=== PATIENT | female | born 1960 | race Caucasian/White ===

== ENCOUNTER 2018-09-24 02:05 | Emergency (ER) | payer OTHER, MEDICAID ==
[~2018-09-24] VITALS: Ht 180.3 cm; Wt 88.0 kg
[2018-09-24 02:48] VITALS: BP 130/74
[2018-09-24 02:59] LABS: Urine Bacteria FEW /hpf (None Seen); Urine Blood Negative /uL (Negative); Urine Specific Gravity 1.006 (1.001-1.035); Urine WBC 18 /hpf (0 - 5)
[2018-09-24 03:09] LABS: Alcohol, Urine < 3.0 mg/dL (0-5); Amphetamine Screen, Urine NEGATIVE (NEGATIVE); Barbiturate Scree,Urine NEGATIVE (NEGATIVE); Benzodiazephine Screen, Urine NEGATIVE (NEGATIVE); Cannabinoid Screen, Urine NEGATIVE (NEGATIVE); Cocaine Screen, Urine NEGATIVE (NEGATIVE); Opiate Scree,Urine NEGATIVE (NEGATIVE); Phencyclidine Screen, Urine NEGATIVE (NEGATIVE)
[2018-09-24] MEDS ORDERED: methylPREDNISolone SOD SUCC 125 MG/2 ML VL IM ONE (03:15)
[2018-09-24] MEDS ORDERED: HYDROcodone-ACET 10/325MG TAB PO ONE (03:15)
[2018-09-24 03:49] LABS: INR < 0.93 (0.9-1.15); Partial Thromboplastin Time 24.2 sec (23.64-32.05)
[2018-09-24 03:50] LABS: Acetaminophen < 2.0 ug/mL (10-30); Salicylate < 1.7 mg/dL (2.8-20.0)
[2018-09-24 03:52] LABS: Albumin 3.8 g/dL (3.4-5.0); BUN/Creatinine Ratio 19.7; Bilirubin, Total 0.2 mg/dL (0.2-1.0); Calcium 8.9 mg/dL (8.5-10.1); Potassium 3.6 mmol/L (3.5-5.1); Total Protein 7.1 g/dL (6.4-8.2)
[2018-09-24 04:20] LABS: Basophils # (auto) 0.1 uL; Eosinophils # (auto) 0.3 uL; Hematocrit 36.7 % (36.0-46.0); Hemoglobin 12.2 g/dL (12.2-16.2); Lymphocytes % (auto) 21.9 % (10.0-50.0); Mean Corpuscular Hemoglobin 27.8 pg (28.0-32.0); Mean Corpuscular Hgb Conc. 33.4 g/dL (32.0-36.0); Mean Corpuscular Volume 83.5 fL (80.0-100.0); Monocytes # (auto) 0.6 uL; Monocytes % (auto) 6.6 % (0.0-12.0); Neutrophils % (auto) 67.5 % (37.0-80.0); Platelet Count (auto) 200 10^3/uL (140-450); Red Blood Cells 4.39 10^6/uL (4.0-5.20); Red Cell Distribution Width 14.1 % (11.8-14.3); White Blood Cell 8.9 10^3/uL (4.4-10.8)
== END 2018-09-24 05:00 | disposition home or self-care (01) ==
LOC: EDBD 02:05 → ER 02:09
DX: J44.9 Chronic obstructive pulmonary disease, unspecified (principal); S96.911A Strain of unspecified muscle and tendon at ankle and foot level, right foot, initial encounter; X83.8XXA Intentional self-harm by other specified means, initial encounter; Y93.89 Activity, other specified; Y92.89 Other specified places as the place of occurrence of the external cause; Y99.8 Other external cause status
CPT/HCPCS: 36415; 71045; 73630; 80053; 80307; 80329; 81001; 85025; 85610; 85730; 93005; 96372; 99284; J2930

== ENCOUNTER 2018-10-11 00:05 | Emergency (ER) | payer OTHER, MEDICAID ==
[~2018-10-11] VITALS: Ht 149.9 cm; Wt 88.5 kg
[2018-10-11 00:39] LABS: Basophils # (auto) 0 uL; Basophils % (auto) 0.4 % (0.0-2.0); Eosinophils # (auto) 0 uL; Hematocrit 37.2 % (36.0-46.0); Hemoglobin 12.3 g/dL (12.2-16.2); Lymphocytes # (auto) 0.4 uL; Lymphocytes % (auto) 4.9 % (10.0-50.0); Mean Corpuscular Hemoglobin 27.8 pg (28.0-32.0); Mean Corpuscular Hgb Conc. 33.1 g/dL (32.0-36.0); Mean Corpuscular Volume 84.2 fL (80.0-100.0); Monocytes # (auto) 0.1 uL; Monocytes % (auto) 1.8 % (0.0-12.0); Neutrophils # (auto) 7.6 uL; Neutrophils % (auto) 92.9 % (37.0-80.0); Platelet Count (auto) 209 10^3/uL (140-450); Red Blood Cells 4.42 10^6/uL (4.0-5.20); Red Cell Distribution Width 14.4 % (11.8-14.3); White Blood Cell 8.2 10^3/uL (4.4-10.8)
[2018-10-11] MEDS: ALBUTEROL SULF 2.5 MG/0.5ML(0.5%) NEB SOLN NEB ONE (00:57)
[2018-10-11] MEDS: IPRATROPIUM BROM 0.5 MG/2.5ML INH SOL NEB ONE (00:57)
[2018-10-11 01:00] LABS: Albumin 3.6 g/dL (3.4-5.0); Anion Gap 13 (5-15); Blood Urea Nitrogen 35 mg/dL (7-18); Calcium 8.7 mg/dL (8.5-10.1); Carbon Dioxide 25 mmol/L (21-32); Chloride 104 mmol/L (98-107); GFR African American 50 mL/min; GFR Non-African American 41 mL/min; Glucose 162 mg/dL (74-106); Magnesium 2.1 mg/dL (1.6-2.6); Potassium 3.8 mmol/L (3.5-5.1); Sodium 142 mmol/L (136-145)
[2018-10-11 01:05] LABS: Alanine Aminotransferase 32 U/L (13-56); Alkaline Phosphatase 88 U/L (45-117); Aspartate Aminotransferase 17 U/L (15-37); Bilirubin, Total 0.4 mg/dL (0.2-1.0); Total Protein 7.4 g/dL (6.4-8.2)
[2018-10-11] MEDS: ACETAMINOPHEN 500 MG TAB PO ONE (02:39)
[2018-10-11 08:00] VITALS: BP 118/65
== END 2018-10-11 09:00 | disposition home or self-care (01) ==
LOC: ER 00:05
DX: J45.909 Unspecified asthma, uncomplicated (principal); Z90.710 Acquired absence of both cervix and uterus
CPT/HCPCS: 36415; 71045; 80053; 83735; 83880; 84484; 85025; 94640; 94761; 99284; J7611; J7644

== ENCOUNTER 2018-11-28 02:08 | Emergency (ER) | payer OTHER, MEDICAID ==
[~2018-11-28] VITALS: Ht 149.9 cm; Wt 86.2 kg
[2018-11-28 02:25] VITALS: BP 124/75
== END 2018-11-28 02:48 | disposition left against medical advice (07) ==
LOC: ER 02:13
DX: R19.7 Diarrhea, unspecified (principal); Z53.21 Procedure and treatment not carried out due to patient leaving prior to being seen by health care provider

== ENCOUNTER 2019-03-09 12:28 | Emergency (ER) | payer OTHER, MEDICAID ==
[~2019-03-09] VITALS: Ht 149.9 cm; Wt 85.7 kg
[2019-03-09] MEDS ORDERED: ACETAMINOPHEN 325 MG TAB PO ONE (13:00)
[2019-03-09 16:16] LABS: Basophils # (auto) 0 uL; Basophils % (auto) 0.5 % (0.0-2.0); Eosinophils # (auto) 0 uL; Hematocrit 38.8 % (36.0-46.0); Lymphocytes # (auto) 0.5 uL; Lymphocytes % (auto) 9.2 % (10.0-50.0); Mean Corpuscular Hemoglobin 27.9 pg (28.0-32.0); Mean Corpuscular Hgb Conc. 33.5 g/dL (32.0-36.0); Mean Corpuscular Volume 83.4 fL (80.0-100.0); Monocytes # (auto) 0.1 uL; Monocytes % (auto) 1.6 % (0.0-12.0); Neutrophils # (auto) 5.2 uL; Neutrophils % (auto) 88.7 % (37.0-80.0); Platelet Count (auto) 200 10^3/uL (140-450); Red Blood Cells 4.65 10^6/uL (4.0-5.20); Red Cell Distribution Width 13.6 % (11.8-14.3); White Blood Cell 5.9 10^3/uL (4.4-10.8)
[2019-03-09 16:37] LABS: Albumin 3.9 g/dL (3.4-5.0); Anion Gap 9 (5-15); Blood Alcohol < 3.0 mg/dL (0-5); Blood Urea Nitrogen 32 mg/dL (7-18); Calcium 9.3 mg/dL (8.5-10.1); Carbon Dioxide 25 mmol/L (21-32); Chloride 104 mmol/L (98-107); Glucose 162 mg/dL (74-106); Magnesium 2.2 mg/dL (1.6-2.6); Sodium 138 mmol/L (136-145)
[2019-03-09 16:40] LABS: Alanine Aminotransferase 27 U/L (13-56); Alkaline Phosphatase 75 U/L (45-117); Aspartate Aminotransferase 17 U/L (15-37); BUN/Creatinine Ratio 25.8; Bilirubin, Total 0.3 mg/dL (0.2-1.0); GFR African American 57 mL/min; GFR Non-African American 47 mL/min; Total Protein 7.3 g/dL (6.4-8.2)
[2019-03-09 17:15] LABS: Acetaminophen 10.4 ug/mL (10-30); Salicylate < 1.7 mg/dL (2.8-20.0)
[2019-03-09 17:38] LABS: Urine Bacteria NONE SEEN /hpf (None Seen); Urine Blood Negative /uL (Negative); Urine WBC 5 /hpf (0 - 5)
[2019-03-09 17:41] LABS: Alcohol, Urine < 3.0 mg/dL (0-5); Amphetamine Screen, Urine NEGATIVE (NEGATIVE); Barbiturate Scree,Urine NEGATIVE (NEGATIVE); Benzodiazephine Screen, Urine NEGATIVE (NEGATIVE); Cannabinoid Screen, Urine NEGATIVE (NEGATIVE); Cocaine Screen, Urine NEGATIVE (NEGATIVE); Opiate Scree,Urine NEGATIVE (NEGATIVE); Phencyclidine Screen, Urine NEGATIVE (NEGATIVE)
[2019-03-09 17:59] VITALS: BP 121/72
[2019-03-09] MEDS ORDERED: IBUPROFEN 600 MG TAB PO ONE (20:30)
[2019-03-12] MEDS ORDERED: MONT10TA34 PO (15:14)
[2019-03-12] MEDS ORDERED: TRAZ100T2 PO (15:14)
[2019-03-12] MEDS ORDERED: VALB80CA PO (15:14)
[2019-03-12] MEDS ORDERED: ATOR10TA52 PO (15:14)
[2019-03-12] MEDS ORDERED: LISI-275 PO (15:14)
[2019-03-12] MEDS ORDERED: ESCI20TA51 PO (15:14)
[2019-03-12] MEDS ORDERED: ALBU108A5 IN (15:14)
[2019-03-12] MEDS ORDERED: FERR1TAB5 PO (15:14)
[2019-03-12] MEDS ORDERED: FLUT115A IN (15:14)
[2019-03-12] MEDS ORDERED: PRAM1TAB PO (15:14)
[2019-03-12] MEDS ORDERED: PANT40TA2 PO (15:14)
[2019-03-12] MEDS ORDERED: GABA100C9 PO (15:14)
[2019-03-12] MEDS ORDERED: DICL1GEL35 TD (15:15)
[2019-03-12] MEDS ORDERED: ALBU0.08 HHN (15:15)
[2019-03-12] MEDS ORDERED: HYDR-392 PO (15:15)
== END 2019-03-09 21:03 | disposition home or self-care (01) ==
LOC: ER 12:28
DX: F32.9 Major depressive disorder, single episode, unspecified (principal); R51 Headache; R45.851 Suicidal ideations
CPT/HCPCS: 36415; 70450; 71045; 80053; 80307; 80320; 80329; 81001; 83735; 85025

== ENCOUNTER → 2019-03-19 | Day surgery (SDC) | payer OTHER, MEDICAID ==
[2019-03-12 15:20] LABS: Urine WBC None Seen /hpf (0 - 5)
[2019-03-12 15:48] LABS: Urine Bacteria NONE SEEN /hpf (None Seen); Urine Blood Negative /uL (Negative)
[2019-03-12 15:50] LABS: Basophils # (auto) 0.1 uL; Basophils % (auto) 1.1 % (0.0-2.0); Eosinophils # (auto) 0.1 uL; Eosinophils % (auto) 0.6 % (0.0-7.0); Hemoglobin 14.3 g/dL (12.2-16.2); Lymphocytes # (auto) 1.5 uL; Lymphocytes % (auto) 13.2 % (10.0-50.0); Mean Corpuscular Hemoglobin 28.3 pg (28.0-32.0); Mean Corpuscular Hgb Conc. 34.2 g/dL (32.0-36.0); Monocytes # (auto) 0.7 uL; Monocytes % (auto) 6.4 % (0.0-12.0); Neutrophils # (auto) 8.9 uL; Neutrophils % (auto) 78.7 % (37.0-80.0); Platelet Count (auto) 229 10^3/uL (140-450); Red Blood Cells 5.06 10^6/uL (4.0-5.20); Red Cell Distribution Width 13.7 % (11.8-14.3); White Blood Cell 11.3 10^3/uL (4.4-10.8)
[2019-03-12 15:57] LABS: Albumin 4.3 g/dL (3.4-5.0); Calcium 9.1 mg/dL (8.5-10.1); Potassium 3.7 mmol/L (3.5-5.1)
[2019-03-12 15:59] LABS: BUN/Creatinine Ratio 30.8; INR 0.99 (0.9-1.15); Partial Thromboplastin Time 24.5 sec (23.64-32.05)
[2019-03-12 16:01] LABS: Bilirubin, Total 0.3 mg/dL (0.2-1.0); Total Protein 7.7 g/dL (6.4-8.2)
[~2019-03-19] VITALS: Ht 149.9 cm; Wt 84.8 kg
[~2019-03-19] MED LIST: ALBU0.08 HHN; ALBU108A5 IN; ATOR10TA52 PO; DICL1GEL35 TD; ESCI20TA51 PO; FERR1TAB5 PO; FLUT115A IN; GABA100C9 PO; HYDR-392 PO; LISI-275 PO; MIDAZOLAM HCL 1MG/1ML-2 ML VIAL ONE; MONT10TA34 PO; NEOMYCIN-BACITRACIN-POLYM 15GM TOP OINT TOP ONE; ONDANSETRON HCL 4 MG/2 ML VIAL IV PRN; PANT40TA2 PO; PRAM1TAB PO; PROPOFOL 10 MG/ML 20 ML IV ONE; ROPIVACAINE 0.5% (5MG/ML) 20ML AMPULE IJ ONE; SUCCINYLCHOLINE CHLORIDE 20 MG/ML 10ML VIAL IV ONE; TRAZ100T2 PO; VALB80CA PO; ceFAZolin 1GM/50ML 50 ML IV ONE; ePHEDrine SULFATE 50 MG/ML AMP IV PRN; fentaNYL CITRATE 100 MCG/2 ML VL IV PRN; fentaNYL CITRATE 100 MCG/2 ML VL ONE; hydrALAZINE HCL 20 MG/ML VL IV PRN
[2019-03-19 09:20] VITALS: BP 114/59
== END | disposition home or self-care (01) ==
LOC: SUR 06:15
PROVIDERS: ATTEND Podiatrist Foot & Ankle Surgery
DX: M20.11 Hallux valgus (acquired), right foot (principal); J45.909 Unspecified asthma, uncomplicated; E66.9 Obesity, unspecified; G89.29 Other chronic pain; M54.2 Cervicalgia; I12.9 Hypertensive chronic kidney disease with stage 1 through stage 4 chronic kidney disease, or unspecified chronic kidney disease; N18.3 Chronic kidney disease, stage 3 (moderate); Z68.37 Body mass index [BMI] 37.0-37.9, adult; Z90.710 Acquired absence of both cervix and uterus; Z98.890 Other specified postprocedural states; Z79.899 Other long term (current) drug therapy; Z88.2 Allergy status to sulfonamides
CPT/HCPCS: 28296; 36415; 73620; 80053; 81001; 85025; 85610; 85730; C1713; C1769; J0330; J0690; J2250; J2704; J2795; J3010; L3260

== ENCOUNTER 2019-07-06 00:47 | Emergency (ER) | payer OTHER, MEDICAID ==
[~2019-07-06] VITALS: Ht 149.9 cm; Wt 81.6 kg
[~2019-07-06 00:47] MED LIST changes: -FERR1TAB5 PO; +FERR45TA7 PO; -MIDAZOLAM HCL 1MG/1ML-2 ML VIAL ONE; -NEOMYCIN-BACITRACIN-POLYM 15GM TOP OINT TOP ONE; -ONDANSETRON HCL 4 MG/2 ML VIAL IV PRN; -PRAM1TAB PO; -PROPOFOL 10 MG/ML 20 ML IV ONE; -ROPIVACAINE 0.5% (5MG/ML) 20ML AMPULE IJ ONE; -SUCCINYLCHOLINE CHLORIDE 20 MG/ML 10ML VIAL IV ONE; -TRAZ100T2 PO; +TRAZ100T3 PO; +[UNRECOGNIZED DRUG - CODE] PO; -ceFAZolin 1GM/50ML 50 ML IV ONE; -ePHEDrine SULFATE 50 MG/ML AMP IV PRN; -fentaNYL CITRATE 100 MCG/2 ML VL IV PRN; -fentaNYL CITRATE 100 MCG/2 ML VL ONE; -hydrALAZINE HCL 20 MG/ML VL IV PRN
[2019-07-06 02:27] LABS: Basophils # (auto) 0.1 10 ^3/uL (0-0.2); Eosinophils # (auto) 0.1 10 ^3/uL (0-0.8); Eosinophils % (auto) 0.4 % (0.0-7.0); Hematocrit 36.9 % (36.0-46.0); Lymphocytes # (auto) 1.6 10 ^3/uL (0.4-5.4); Lymphocytes % (auto) 13.1 % (10.0-50.0); Mean Corpuscular Hemoglobin 27.5 pg (28.0-32.0); Mean Corpuscular Hgb Conc. 32.5 g/dL (32.0-36.0); Mean Corpuscular Volume 84.5 fL (80.0-100.0); Monocytes # (auto) 0.8 10 ^3/uL (0-1.3); Monocytes % (auto) 6.7 % (0.0-12.0); Neutrophils # (auto) 9.9 10 ^3/uL (1.6-8.6); Neutrophils % (auto) 78.8 % (37.0-80.0); Nucleated Red Blood Cells % 0.1 %; Platelet Count (auto) 199 10^3/uL (140-450); Red Blood Cells 4.37 10^6/uL (4.0-5.20); Red Cell Distribution Width 16.4 % (11.8-14.3); White Blood Cell 12.6 10^3/uL (4.4-10.8)
[2019-07-06 02:44] LABS: Alanine Aminotransferase 30 U/L (13-56); Albumin 3.4 g/dL (3.4-5.0); Anion Gap 9 (5-15); Aspartate Aminotransferase 19 U/L (15-37); BUN/Creatinine Ratio 28.3; Blood Urea Nitrogen 39 mg/dL (7-18); Calcium 8.9 mg/dL (8.5-10.1); Carbon Dioxide 22 mmol/L (21-32); Chloride 107 mmol/L (98-107); GFR African American 50 mL/min; GFR Non-African American 42 mL/min; Glucose 118 mg/dL (74-106); Sodium 138 mmol/L (136-145)
[2019-07-06 02:48] LABS: Alkaline Phosphatase 75 U/L (45-117); Bilirubin, Total 0.3 mg/dL (0.2-1.0); Total Protein 6.9 g/dL (6.4-8.2)
[2019-07-06] MEDS ORDERED: ACETAMINOPHEN 325 MG TAB PO ONE ×2 (03:30→03:45)
[2019-07-06 08:56] LABS: Urine Bacteria NONE SEEN /hpf (None Seen); Urine Blood Negative /uL (Negative); Urine Hyaline Cast FEW /lpf (0 - 2); Urine Mucus FEW (None Seen); Urine Specific Gravity 1.036 (1.001-1.035); Urine WBC 11 /hpf (0 - 5)
[2019-07-06 09:00] VITALS: BP 100/61
== END 2019-07-06 09:28 | disposition home or self-care (01) ==
LOC: EDBD 00:47 → ER 00:53
DX: R07.89 Other chest pain (principal); J98.11 Atelectasis; G89.4 Chronic pain syndrome; K21.0 Gastro-esophageal reflux disease with esophagitis; F41.9 Anxiety disorder, unspecified; I12.9 Hypertensive chronic kidney disease with stage 1 through stage 4 chronic kidney disease, or unspecified chronic kidney disease; N18.3 Chronic kidney disease, stage 3 (moderate); J45.909 Unspecified asthma, uncomplicated; Z88.2 Allergy status to sulfonamides
CPT/HCPCS: 36415; 71045; 80053; 81001; 83880; 84443; 84484; 85025; 93005

== ENCOUNTER 2019-08-20 06:13 | Day surgery (SDC) | payer OTHER, MEDICAID ==
[2019-08-19 10:01] LABS: Basophils # (auto) 0.1 10 ^3/uL (0-0.2); Eosinophils # (auto) 0.2 10 ^3/uL (0-0.8); Monocytes # (auto) 0.4 10 ^3/uL (0-1.3); White Blood Cell 7.2 10^3/uL (4.4-10.8)
[2019-08-19 10:02] LABS: Eosinophils % (auto) 2.4 % (0.0-7.0); Hemoglobin 14.1 g/dL (12.2-16.2); Lymphocytes % (auto) 13.7 % (10.0-50.0); Mean Corpuscular Hgb Conc. 32.7 g/dL (32.0-36.0); Mean Corpuscular Volume 82.6 fL (80.0-100.0); Monocytes % (auto) 5.2 % (0.0-12.0); Neutrophils # (auto) 5.6 10 ^3/uL (1.6-8.6); Neutrophils % (auto) 77.7 % (37.0-80.0); Platelet Count (auto) 201 10^3/uL (140-450); Red Cell Distribution Width 15.6 % (11.8-14.3)
[2019-08-19 10:03] LABS: Urine Bacteria NONE SEEN /hpf (None Seen); Urine Blood Negative /uL (Negative); Urine Specific Gravity 1.017 (1.001-1.035); Urine WBC 1 /hpf (0 - 5)
[2019-08-19 10:18] LABS: Albumin 4.3 g/dL (3.4-5.0); Calcium 9.7 mg/dL (8.5-10.1); Potassium 4.2 mmol/L (3.5-5.1)
[2019-08-19 10:21] LABS: BUN/Creatinine Ratio 38.6; Bilirubin, Total 0.4 mg/dL (0.2-1.0); Total Protein 8.3 g/dL (6.4-8.2)
[2019-08-19 10:24] LABS: INR 0.95 (0.9-1.15); Partial Thromboplastin Time 27.1 sec (23.64-32.05)
[~2019-08-20] VITALS: Ht 149.9 cm; Wt 80.3 kg
[2019-08-20] MEDS ORDERED: ceFAZolin 1GM/50ML 50 ML IV ONE (06:35)
[2019-08-20] MEDS ORDERED: NEOMYCIN-BACITRACIN-POLYM 15GM TOP OINT TOP ONE (07:12)
[2019-08-20] MEDS ORDERED: ROPIVACAINE 0.5% (5MG/ML) 20ML AMPULE IJ ONE (07:12)
[2019-08-20] MEDS ORDERED: fentaNYL CITRATE 100 MCG/2 ML VL ONE (07:26)
[2019-08-20] MEDS ORDERED: MEPERIDINE HCL (50 MG/ML) 1 ML VIAL ONE (07:26)
[2019-08-20] MEDS ORDERED: MIDAZOLAM HCL 1MG/1ML-2 ML VIAL ONE (07:26)
[2019-08-20] MEDS ORDERED: DexAMETHasone SOD PHOS 10MG/1ML VIAL INJ ONE (07:30)
[2019-08-20] MEDS ORDERED: PROPOFOL 10 MG/ML 20 ML IV ONE (07:31)
[2019-08-20] MEDS ORDERED: HYDROmorphone HCL 2 MG/ML VL IV PRN (08:15)
[2019-08-20] MEDS ORDERED: ePHEDrine SULFATE 50 MG/ML AMP IV PRN (08:15)
[2019-08-20] MEDS ORDERED: ONDANSETRON HCL 4 MG/2 ML VIAL IV PRN (08:15)
[2019-08-20] MEDS ORDERED: KETOROLAC TROMETH 30 MG/ML 1ML VIAL IV ONE (08:15)
[2019-08-20] MEDS ORDERED: MORPHINE SULFATE 4 MG/ML SYR/VIAL IV PRN (08:15)
[2019-08-20] MEDS ORDERED: LABETALOL HCL 5 MG/ML 4ML SYRINGE IV PRN (08:15)
[2019-08-20] MEDS ORDERED: MIDAZOLAM HCL 1MG/1ML-2 ML VIAL IV PRN (08:15)
[2019-08-20 08:53] VITALS: BP 100/68
== END 2019-08-20 09:01 | disposition home or self-care (01) ==
LOC: SUR 06:13
PROVIDERS: ATTEND Podiatrist Foot & Ankle Surgery
DX: M79.671 Pain in right foot (principal); T84.213A Breakdown (mechanical) of internal fixation device of bones of foot and toes, initial encounter; L90.5 Scar conditions and fibrosis of skin; F41.9 Anxiety disorder, unspecified; J45.909 Unspecified asthma, uncomplicated; I12.9 Hypertensive chronic kidney disease with stage 1 through stage 4 chronic kidney disease, or unspecified chronic kidney disease; N18.3 Chronic kidney disease, stage 3 (moderate); K21.9 Gastro-esophageal reflux disease without esophagitis; Z90.710 Acquired absence of both cervix and uterus; Z98.890 Other specified postprocedural states; Z88.2 Allergy status to sulfonamides
CPT/HCPCS: 14040; 20680; 36415; 80053; 81001; 85025; 85610; 85730; 88300; 88302; J0690; J1100; J2175; J2250; J2704; J2795; J3010

== ENCOUNTER 2020-07-05 11:22 | Emergency (ER) | payer OTHER, MEDICAID ==
[~2020-07-05] VITALS: Ht 149.9 cm; Wt 86.2 kg
[~2020-07-05 11:22] MED LIST changes: -DICL1GEL35 TD; +DICL1GEL50 TD; +ESCI-34 PO; -ESCI20TA51 PO
[2020-07-05] MEDS: LORazepam 2MG/ML-1ML VIAL IV ONE ×2 (11:30→11:40)
[2020-07-05 11:40] VITALS: BP 147/82
[2020-07-05 11:54] LABS: Basophils # (auto) 0.1 10 ^3/uL (0-0.2); Eosinophils # (auto) 0.2 10 ^3/uL (0-0.8); Eosinophils % (auto) 3.2 % (0.0-7.0); Hematocrit 39.6 % (36.0-46.0); Lymphocytes # (auto) 1.2 10 ^3/uL (0.4-5.4); Lymphocytes % (auto) 17.7 % (10.0-50.0); Mean Corpuscular Hgb Conc. 32.8 g/dL (32.0-36.0); Mean Corpuscular Volume 82.3 fL (80.0-100.0); Monocytes # (auto) 0.5 10 ^3/uL (0-1.3); Neutrophils # (auto) 4.7 10 ^3/uL (1.6-8.6); Neutrophils % (auto) 71.1 % (37.0-80.0); Platelet Count (auto) 199 10^3/uL (140-450); Red Blood Cells 4.82 10^6/uL (4.0-5.20); Red Cell Distribution Width 15.5 % (11.8-14.3); White Blood Cell 6.6 10^3/uL (4.4-10.8)
[2020-07-05] MEDS ORDERED: LORazepam 0.5 MG TAB PO ONE (12:15)
[2020-07-05 12:18] LABS: Albumin 4.1 g/dL (3.4-5.0); Calcium 9.3 mg/dL (8.5-10.1); Potassium 3.3 mmol/L (3.5-5.1)
[2020-07-05 12:22] LABS: BUN/Creatinine Ratio 23.6; Bilirubin, Total 0.6 mg/dL (0.2-1.0); Total Protein 7.5 g/dL (6.4-8.2)
[2020-07-05 12:41] LABS: Urine Bacteria NONE SEEN /hpf (None Seen); Urine Blood Negative /uL (Negative); Urine Specific Gravity 1.005 (1.001-1.035); Urine WBC 1 /hpf (0 - 5)
[2020-07-05] MEDS ORDERED: POTASSIUM EFFERVESENT TAB 25 MEQ PO ONE (13:00)
== END 2020-07-05 13:17 | disposition home or self-care (01) ==
LOC: ER 11:22 → EDBD 11:22 → ER 13:17
DX: F41.9 Anxiety disorder, unspecified (principal); E87.6 Hypokalemia; J45.909 Unspecified asthma, uncomplicated; I10 Essential (primary) hypertension; Z90.710 Acquired absence of both cervix and uterus; Z88.2 Allergy status to sulfonamides
CPT/HCPCS: 36415; 71045; 80053; 81001; 85025; 93005; 99285; J2060

== ENCOUNTER 2020-09-10 15:43 | Emergency (ER) | payer OTHER, MEDICAID ==
[~2020-09-10] VITALS: Ht 149.9 cm; Wt 104.3 kg
[~2020-09-10 15:43] MED LIST changes: +MONT-8 PO; -MONT10TA34 PO
[2020-09-11] MEDS ORDERED: KETOROLAC TROMETH 60MG/2ML VIAL IM ONE (02:45)
[2020-09-11 03:15] VITALS: BP 112/76
[2020-09-17] MEDS ORDERED: PERCOT PO (10:25)
== END 2020-09-11 03:30 | disposition home or self-care (01) ==
LOC: ER 15:43
DX: M79.10 Myalgia, unspecified site (principal); F41.9 Anxiety disorder, unspecified; M54.9 Dorsalgia, unspecified; I10 Essential (primary) hypertension; J45.909 Unspecified asthma, uncomplicated; Z90.710 Acquired absence of both cervix and uterus; Z88.2 Allergy status to sulfonamides; Z79.899 Other long term (current) drug therapy
CPT/HCPCS: 96372; 99283; J1885

== ENCOUNTER 2020-09-22 06:20 | Day surgery (SDC) | payer OTHER, MEDICAID ==
[2020-09-17 10:22] LABS: Hematocrit 39.9 % (36.0-46.0); Hemoglobin 13.6 g/dL (12.2-16.2); Mean Corpuscular Hemoglobin 27.6 pg (28.0-32.0); Mean Corpuscular Hgb Conc. 34.2 g/dL (32.0-36.0); Mean Corpuscular Volume 80.9 fL (80.0-100.0); Platelet Count (auto) 232 10^3/uL (140-450); Red Blood Cells 4.93 10^6/uL (4.0-5.20); White Blood Cell 7.4 10^3/uL (4.4-10.8)
[2020-09-17 10:25] LABS: Urine Bacteria NONE SEEN /hpf (None Seen); Urine Blood Negative /uL (Negative); Urine Specific Gravity 1.022 (1.001-1.035); Urine WBC <1 /hpf (0 - 5)
[2020-09-17 10:39] LABS: INR 0.92 (0.9-1.15); Partial Thromboplastin Time 21.7 sec (23.0-31.2)
[2020-09-17 10:44] LABS: Band Neutrophils % (manual) 0; Basophils % (manual) 0 (0.0-2.0); Blast Cells 0; Metamyelocytes % 0; Myelocytes % 0; Promyelocytes % 0; Reactive Lymphocytes 0
[2020-09-17 10:47] LABS: Albumin 3.7 g/dL (3.4-5.0); Calcium 9.8 mg/dL (8.5-10.1); Potassium 3.8 mmol/L (3.5-5.1)
[2020-09-17 10:51] LABS: BUN/Creatinine Ratio 24.5; Bilirubin, Total 0.7 mg/dL (0.2-1.0); Eosinophils % (manual) 3 (0-7); Lymphocytes % (manual) 17 (10.0-50.0); Monocytes % (manual) 1 (0-12); Total Protein 7.6 g/dL (6.4-8.2)
[~2020-09-22] VITALS: Ht 149.9 cm; Wt 86.2 kg
[~2020-09-22 06:20] MED LIST changes: -HYDR-392 PO; -MONT-8 PO; +MONT10TA42 PO; +PERCOT PO
[2020-09-22] MEDS ORDERED: ceFAZolin 1GM/50ML 100 ML IV ONE (07:07)
[2020-09-22] MEDS ORDERED: ROPIVACAINE 0.5% (5MG/ML) 20ML AMPULE IJ ONE (07:37)
[2020-09-22] MEDS ORDERED: methylPREDNISolone ACETATE 80 MG/ML VL ONE (07:37)
[2020-09-22] MEDS ORDERED: NEOMYCIN-BACITRACIN-POLYM 15GM TOP OINT TOP ONE (07:37)
[2020-09-22] MEDS ORDERED: MIDAZOLAM HCL 1MG/1ML-2 ML VIAL ONE (08:15)
[2020-09-22] MEDS ORDERED: fentaNYL CITRATE 100 MCG/2 ML VL ONE ×2 (08:15→08:36)
[2020-09-22] MEDS ORDERED: LIDOCAINE 2% (LOCAL ANESTH.) PF 5ml SDV ONE (08:17)
[2020-09-22] MEDS ORDERED: PROPOFOL 10 MG/ML 20 ML IV ONE (08:18)
[2020-09-22] MEDS ORDERED: KETAMINE HCL 10 ML ONE (09:37)
[2020-09-22] MEDS ORDERED: ONDANSETRON HCL 4 MG/2 ML VIAL IV PRN (09:45)
[2020-09-22 09:55] VITALS: BP 145/70
== END 2020-09-22 10:45 | disposition home or self-care (01) ==
LOC: SUR 06:20
PROVIDERS: ATTEND Podiatrist Foot & Ankle Surgery
DX: M72.2 Plantar fascial fibromatosis (principal); I12.9 Hypertensive chronic kidney disease with stage 1 through stage 4 chronic kidney disease, or unspecified chronic kidney disease; N18.30 Chronic kidney disease, stage 3 unspecified; D64.9 Anemia, unspecified; F32.9 Major depressive disorder, single episode, unspecified; K21.9 Gastro-esophageal reflux disease without esophagitis; M19.90 Unspecified osteoarthritis, unspecified site; J44.9 Chronic obstructive pulmonary disease, unspecified; F41.9 Anxiety disorder, unspecified; Z68.38 Body mass index [BMI] 38.0-38.9, adult; Z88.2 Allergy status to sulfonamides; Z98.890 Other specified postprocedural states; Z20.822 Contact with and (suspected) exposure to COVID-19; Z90.710 Acquired absence of both cervix and uterus; Z88.1 Allergy status to other antibiotic agents
CPT/HCPCS: 29893; 36415; 80053; 81001; 85007; 85027; 85610; 85730; J0690; J1040; J2001; J2250; J2704; J2795; J3010; U0003

== ENCOUNTER 2020-09-22 13:24 | Emergency (ER) | payer OTHER, MEDICAID ==
[~2020-09-22] VITALS: Ht 149.9 cm; Wt 85.3 kg
[2020-09-22 13:26] VITALS: BP 149/86
[2020-09-22 14:10] LABS: Basophils # (auto) 0 10 ^3/uL (0-0.2); Basophils % (auto) 0.8 % (0.0-2.0); Eosinophils # (auto) 0.1 10 ^3/uL (0-0.8); Eosinophils % (auto) 1.7 % (0.0-7.0); Hematocrit 37.4 % (36.0-46.0); Hemoglobin 12.8 g/dL (12.2-16.2); Lymphocytes # (auto) 1.3 10 ^3/uL (0.4-5.4); Lymphocytes % (auto) 20.7 % (10.0-50.0); Mean Corpuscular Hemoglobin 27.7 pg (28.0-32.0); Mean Corpuscular Hgb Conc. 34.2 g/dL (32.0-36.0); Mean Corpuscular Volume 81.1 fL (80.0-100.0); Monocytes # (auto) 0.5 10 ^3/uL (0-1.3); Monocytes % (auto) 7.8 % (0.0-12.0); Neutrophils # (auto) 4.3 10 ^3/uL (1.6-8.6); Nucleated Red Blood Cells % 0.1 %; Platelet Count (auto) 261 10^3/uL (140-450); Red Cell Distribution Width 16.8 % (11.8-14.3); White Blood Cell 6.2 10^3/uL (4.4-10.8)
[2020-09-22 14:11] LABS: Albumin 3.7 g/dL (3.4-5.0); Calcium 9.9 mg/dL (8.5-10.1); Potassium 3.8 mmol/L (3.5-5.1)
[2020-09-22 14:14] LABS: Bilirubin, Total 0.5 mg/dL (0.2-1.0); Total Protein 7.5 g/dL (6.4-8.2)
== END 2020-09-22 13:26 | disposition left against medical advice (07) ==
LOC: ER 13:24
DX: Z48.01 Encounter for change or removal of surgical wound dressing (principal); Z53.21 Procedure and treatment not carried out due to patient leaving prior to being seen by health care provider
CPT/HCPCS: 36415; 80053; 85025

== ENCOUNTER 2020-09-22 21:56 | Emergency (ER) | payer OTHER, MEDICAID ==
[~2020-09-22] VITALS: Ht 149.9 cm; Wt 85.3 kg
[2020-09-23 05:48] VITALS: BP 143/79
== END 2020-09-23 05:55 | disposition home or self-care (01) ==
LOC: ER 21:56
DX: Z48.00 Encounter for change or removal of nonsurgical wound dressing (principal); M72.2 Plantar fascial fibromatosis

== ENCOUNTER 2021-10-16 17:57 | Emergency (ER) | payer OTHER, MEDICAID ==
[~2021-10-16] VITALS: Ht 149.9 cm; Wt 76.7 kg
[~2021-10-16 17:57] MED LIST changes: +MONT-8 PO; -MONT10TA42 PO
[2021-10-16] MEDS ORDERED: HYDROmorphone HCL 2 MG/ML VL/or syr IM ONE (20:00)
[2021-10-16] MEDS ORDERED: ONDANSETRON ODT 4 MG TAB PO ONE (20:00)
[2021-10-16 20:34] VITALS: BP 131/78
[2021-10-17] MEDS ORDERED: NITR-87 PO (08:46)
== END 2021-10-16 21:23 | disposition home or self-care (01) ==
LOC: ER 17:57
DX: M25.562 Pain in left knee (principal); M25.561 Pain in right knee; G89.29 Other chronic pain; J45.909 Unspecified asthma, uncomplicated; I10 Essential (primary) hypertension; Z90.710 Acquired absence of both cervix and uterus; Z88.2 Allergy status to sulfonamides
CPT/HCPCS: 96372; 99283; J1170; Q0162

== ENCOUNTER → 2021-10-16 21:31 | Emergency (ER) | payer OTHER, MEDICAID ==
[~2021-10-16] VITALS: Ht 149.9 cm; Wt 76.7 kg
[~2021-10-16 21:31] MED LIST changes: +MORPHINE SULFATE INJ 2 MG/ml SYRG IM ONE; +NITR-87 PO; +ONDANSETRON HCL 4 MG/2 ML VIAL IM ONE
[2021-10-17 08:22] VITALS: BP 135/88
[2021-10-17 08:38] LABS: Urine Bacteria FEW /hpf (None Seen); Urine Blood Negative /uL (Negative); Urine WBC 61 /hpf (0 - 5)
== END | disposition home or self-care (01) ==
LOC: ER 21:31
DX: M25.562 Pain in left knee (principal); M25.561 Pain in right knee; G89.29 Other chronic pain; J45.909 Unspecified asthma, uncomplicated; I10 Essential (primary) hypertension; N39.0 Urinary tract infection, site not specified; Z90.710 Acquired absence of both cervix and uterus; Z88.2 Allergy status to sulfonamides
CPT/HCPCS: 81001; 96372

== ENCOUNTER 2021-10-19 13:17 | Emergency (ER) | payer OTHER, MEDICAID ==
[~2021-10-19] VITALS: Ht 149.9 cm; Wt 76.7 kg
[~2021-10-19 13:17] MED LIST changes: -MORPHINE SULFATE INJ 2 MG/ml SYRG IM ONE; -ONDANSETRON HCL 4 MG/2 ML VIAL IM ONE
[2021-10-19 15:06] VITALS: BP 108/63
== END 2021-10-19 21:00 | disposition left against medical advice (07) ==
LOC: ER 13:17
DX: M79.662 Pain in left lower leg (principal); M79.661 Pain in right lower leg; Z53.21 Procedure and treatment not carried out due to patient leaving prior to being seen by health care provider

== ENCOUNTER 2021-12-23 17:54 | Emergency (ER) | payer OTHER, MEDICAID ==
[~2021-12-23] VITALS: Ht 149.9 cm; Wt 79.6 kg
[2021-12-23 21:30] VITALS: BP 148/76
[2021-12-23] MEDS ORDERED: KETOROLAC TROMETH 30 MG/ML 1ML VIAL IM ONE (21:30)
[2021-12-23] MEDS ORDERED: methylPREDNISolone SOD SUCC 125 MG/2 ML VL IM ONE (21:30)
[2021-12-23] MEDS ORDERED: KETO10TA PO ×2 (22:26→23:01)
== END 2021-12-23 23:03 | disposition home or self-care (01) ==
LOC: ER 17:54
DX: M79.10 Myalgia, unspecified site (principal); M47.816 Spondylosis without myelopathy or radiculopathy, lumbar region; G89.29 Other chronic pain; I10 Essential (primary) hypertension; J45.909 Unspecified asthma, uncomplicated; Z90.710 Acquired absence of both cervix and uterus; Z79.899 Other long term (current) drug therapy; Z88.2 Allergy status to sulfonamides
CPT/HCPCS: 96372; 99284; J1885; J2930

== ENCOUNTER 2022-01-13 11:39 | Emergency (ER) | payer OTHER, MEDICAID ==
[~2022-01-13] VITALS: Ht 149.9 cm; Wt 77.2 kg
[~2022-01-13 11:39] MED LIST changes: +KETO10TA PO
[2022-01-13 13:41] LABS: Eosinophils # (auto) 0.2 10 ^3/uL (0-0.8); Mean Corpuscular Hemoglobin 26.5 pg (28.0-32.0); Mean Corpuscular Hgb Conc. 32.4 g/dL (32.0-36.0); Monocytes # (auto) 0.5 10 ^3/uL (0-1.3); Neutrophils # (auto) 4.9 10 ^3/uL (1.6-8.6); Red Cell Distribution Width 14.9 % (11.8-14.3); White Blood Cell 7.2 10^3/uL (4.4-10.8)
[2022-01-13 13:43] LABS: Basophils # (auto) 0 10 ^3/uL (0-0.2); Basophils % (auto) 0.4 % (0.0-2.0); Eosinophils % (auto) 3.3 % (0.0-7.0); Hemoglobin 12.3 g/dL (12.2-16.2); Lymphocytes # (auto) 1.5 10 ^3/uL (0.4-5.4); Lymphocytes % (auto) 21.3 % (10.0-50.0); Mean Corpuscular Volume 81.7 fL (80.0-100.0); Monocytes % (auto) 6.3 % (0.0-12.0); Neutrophils % (auto) 68.7 % (37.0-80.0); Nucleated Red Blood Cells % 0.1 %; Red Blood Cells 4.66 10^6/uL (4.0-5.20)
[2022-01-13 13:56] LABS: Albumin 3.4 g/dL (3.4-5.0); Calcium 9.4 mg/dL (8.5-10.1)
[2022-01-13 14:00] LABS: BUN/Creatinine Ratio 29.4; Bilirubin, Total 0.8 mg/dL (0.2-1.0); Total Protein 6.8 g/dL (6.4-8.2)
[2022-01-13] MEDS ORDERED: MORPHINE SULFATE INJ 2 MG/ml SYRG IV ONE (16:00)
[2022-01-13] MEDS ORDERED: POTASSIUM EFFERVESENT TAB 25 MEQ PO ONE (18:30)
[2022-01-13 18:36] VITALS: BP 151/82
== END 2022-01-13 18:44 | disposition home or self-care (01) ==
LOC: EDBD 11:39 → ER 11:39
DX: K59.00 Constipation, unspecified (principal); E87.6 Hypokalemia; J45.909 Unspecified asthma, uncomplicated; I12.9 Hypertensive chronic kidney disease with stage 1 through stage 4 chronic kidney disease, or unspecified chronic kidney disease; N18.9 Chronic kidney disease, unspecified; Z88.2 Allergy status to sulfonamides; Z79.899 Other long term (current) drug therapy; Z90.710 Acquired absence of both cervix and uterus
CPT/HCPCS: 36415; 74177; 80053; 83605; 85025; 99285; J2270

== ENCOUNTER 2022-07-14 09:53 | Emergency (ER) | payer OTHER, MEDICAID ==
[~2022-07-14] VITALS: Ht 149.9 cm; Wt 75.0 kg
[2022-07-14 10:11] VITALS: BP 119/72
== END 2022-07-14 21:34 | disposition left against medical advice (07) ==
LOC: ER 09:53
DX: M54.50 Low back pain, unspecified (principal); Z53.21 Procedure and treatment not carried out due to patient leaving prior to being seen by health care provider

== ENCOUNTER 2022-12-19 21:08 | Emergency (ER) | payer OTHER, MEDICAID ==
[~2022-12-19] VITALS: Ht 157.5 cm; Wt 67.3 kg
[~2022-12-19 21:08] MED LIST changes: -DICL1GEL50 TD; +DICL1GEL73 TD; -ESCI-34 PO; +ESCI1TAB37 PO; +GABA-1308 PO; -GABA100C9 PO; +TRAZ-228 PO; -TRAZ100T3 PO
[2022-12-19 21:19] VITALS: BP 148/78; PULSE 76; RESP 16; O2SAT 99
== END 2022-12-20 01:25 | disposition left against medical advice (07) ==
LOC: ER 21:08 → EDBD 21:08 → ER 12-20 01:25
DX: M79.642 Pain in left hand (principal); Z53.21 Procedure and treatment not carried out due to patient leaving prior to being seen by health care provider
CPT/HCPCS: 73110; 73130

== ENCOUNTER 2022-12-22 14:29 | Emergency (ER) | payer OTHER, MEDICAID ==
[~2022-12-22] VITALS: Ht 149.9 cm; Wt 72.0 kg
[2022-12-22 14:44] VITALS: BP 131/87; PULSE 92; RESP 18; O2SAT 99
[2022-12-22] MEDS ORDERED: HYDROcodone-ACET 10/325MG TAB PO ONE (16:00)
[2022-12-22] MEDS ORDERED: CYCL-837 PO (17:50)
[2022-12-22] MEDS ORDERED: NAP500T PO (17:50)
== END 2022-12-22 17:50 | disposition left against medical advice (07) ==
LOC: ER 14:29
DX: S06.0X0A Concussion without loss of consciousness, initial encounter (principal); S00.83XA Contusion of other part of head, initial encounter; I10 Essential (primary) hypertension; M19.90 Unspecified osteoarthritis, unspecified site; J45.909 Unspecified asthma, uncomplicated; E66.9 Obesity, unspecified; Z68.32 Body mass index [BMI] 32.0-32.9, adult; Z88.2 Allergy status to sulfonamides; Z79.1 Long term (current) use of non-steroidal anti-inflammatories (NSAID); Z79.899 Other long term (current) drug therapy; Y08.89XA Assault by other specified means, initial encounter; Y93.89 Activity, other specified; Y92.89 Other specified places as the place of occurrence of the external cause; Y99.8 Other external cause status
CPT/HCPCS: 70450; 70486; 72125

== ENCOUNTER 2023-01-10 12:35 | Emergency (ER) | payer OTHER, MEDICAID ==
[~2023-01-10] VITALS: Ht 149.9 cm; Wt 77.3 kg
[~2023-01-10 12:35] MED LIST changes: +CYCL-837 PO; +NAP500T PO
[2023-01-10 14:44] VITALS: BP 136/83; PULSE 100; RESP 18; O2SAT 96
[2023-01-10] MEDS ORDERED: CEPH500T PO (15:11)
[2023-01-10] MEDS ORDERED: ACET-1079 PO (15:13)
[2023-01-10] MEDS ORDERED: cefTRIAXone SOD 1,000 MG VL IM ONE (15:15)
[2023-01-10] MEDS ORDERED: KETOROLAC TROMETH 30 MG/ML 1ML VIAL IM ONE (15:15)
== END 2023-01-10 15:31 | disposition home or self-care (01) ==
LOC: ER 12:35
DX: L03.317 Cellulitis of buttock (principal); F41.9 Anxiety disorder, unspecified; J45.909 Unspecified asthma, uncomplicated; F32.9 Major depressive disorder, single episode, unspecified; I12.9 Hypertensive chronic kidney disease with stage 1 through stage 4 chronic kidney disease, or unspecified chronic kidney disease; N18.9 Chronic kidney disease, unspecified; Z90.710 Acquired absence of both cervix and uterus; Z88.2 Allergy status to sulfonamides; Z79.1 Long term (current) use of non-steroidal anti-inflammatories (NSAID); Z79.899 Other long term (current) drug therapy
CPT/HCPCS: 96372; 99284; J0696; J1885

== ENCOUNTER 2023-01-14 13:29 | Emergency (ER) | payer OTHER, MEDICAID ==
[~2023-01-14] VITALS: Ht 162.6 cm; Wt 75.0 kg
[~2023-01-14 13:29] MED LIST changes: +ACET-1079 PO; +CEPH500T PO
[2023-01-14 13:30] VITALS: BP 146/76; PULSE 88; RESP 17; O2SAT 96
== END 2023-01-14 13:51 | disposition left against medical advice (07) ==
LOC: ER 13:29 → EDBD 13:29 → ER 13:51
DX: R10.30 Lower abdominal pain, unspecified (principal); Z53.21 Procedure and treatment not carried out due to patient leaving prior to being seen by health care provider

== ENCOUNTER 2023-01-29 00:14 | Emergency (ER) | payer OTHER, MEDICAID ==
[~2023-01-29] VITALS: Ht 162.6 cm; Wt 73.0 kg
[2023-01-29 00:45] LABS: Basophils # (auto) 0.1 10 ^3/uL (0-0.2); Hemoglobin 12.3 g/dL (12.2-16.2); Monocytes # (auto) 0.6 10 ^3/uL (0-1.3); Neutrophils # (auto) 4.3 10 ^3/uL (1.6-8.6)
[2023-01-29 00:46] LABS: Basophils % (auto) 1.3 % (0.0-2.0); Eosinophils # (auto) 0.3 10 ^3/uL (0-0.8); Eosinophils % (auto) 5.3 % (0.0-7.0); Hematocrit 37.2 % (36.0-46.0); Lymphocytes % (auto) 15.2 % (10.0-50.0); Mean Corpuscular Hemoglobin 26.8 pg (28.0-32.0); Mean Corpuscular Volume 81.1 fL (80.0-100.0); Monocytes % (auto) 9.5 % (0.0-12.0); Neutrophils % (auto) 68.7 % (37.0-80.0); Nucleated Red Blood Cells % 0.1 %; Red Blood Cells 4.59 10^6/uL (4.0-5.20); Red Cell Distribution Width 16.8 % (11.8-14.3); White Blood Cell 6.3 10^3/uL (4.4-10.8)
[2023-01-29 01:03] LABS: Alanine Aminotransferase 21 U/L (7-40); Albumin 4.4 g/dL (3.2-4.8); Alkaline Phosphatase 122 U/L (46-116); Anion Gap 8 (5-15); Aspartate Aminotransferase 23 U/L (13-40); BUN/Creatinine Ratio 16.8 (10.0-20.0); Bilirubin, Total 0.6 mg/dL (0.2-1.0); Blood Urea Nitrogen 20 mg/dL (9-23); Calcium 9.7 mg/dL (8.7-10.4); Carbon Dioxide 28 mmol/L (20-30); Chloride 103 mmol/L (98-107); Glucose 89 mg/dL (74-106); Potassium 3.8 mmol/L (3.5-5.1); Sodium 139 mmol/L (136-145); Total Protein 6.8 g/dL (5.7-8.2)
[2023-01-29 04:21] VITALS: BP 137/62; PULSE 74; RESP 18; TEMP 97.9; O2SAT 93
[2023-01-29] MEDS ORDERED: ONDANSETRON ODT 4 MG TAB PO ONE (04:45)
[2023-01-29 05:00] LABS: Urine Bacteria NONE SEEN /hpf (None Seen); Urine Blood Negative /uL (Negative); Urine Clarity Clear (Clear); Urine Color Yellow (Yellow); Urine Protein, UAD TRACE (Negative); Urine WBC 2 /hpf (0 - 5)
[2023-01-29] MEDS ORDERED: PANT40TA2 PO (05:16)
== END 2023-01-29 05:25 | disposition home or self-care (01) ==
LOC: EDBD 00:14 → ER 00:14
DX: K21.9 Gastro-esophageal reflux disease without esophagitis (principal); J45.909 Unspecified asthma, uncomplicated; I12.9 Hypertensive chronic kidney disease with stage 1 through stage 4 chronic kidney disease, or unspecified chronic kidney disease; N18.9 Chronic kidney disease, unspecified; Z90.710 Acquired absence of both cervix and uterus; Z87.440 Personal history of urinary (tract) infections
CPT/HCPCS: 36415; 74176; 80053; 81001; 83605; 83690; 84484; 85025; 93005; 99284; Q0162

== ENCOUNTER 2023-02-02 17:59 | Emergency (ER) | payer OTHER, MEDICAID ==
[~2023-02-02] VITALS: Ht 149.9 cm; Wt 54.4 kg
[2023-02-02 18:12] VITALS: BP 126/73; RESP 16; O2SAT 95
[2023-02-02 18:17] VITALS: PULSE 85
== END 2023-02-03 00:39 | disposition home or self-care (01) ==
LOC: EDBD 17:59 → ER 17:59
DX: F41.9 Anxiety disorder, unspecified (principal); R42 Dizziness and giddiness; I12.9 Hypertensive chronic kidney disease with stage 1 through stage 4 chronic kidney disease, or unspecified chronic kidney disease; N18.9 Chronic kidney disease, unspecified; J45.909 Unspecified asthma, uncomplicated; F32.9 Major depressive disorder, single episode, unspecified; Z90.710 Acquired absence of both cervix and uterus; Z98.890 Other specified postprocedural states; Z88.2 Allergy status to sulfonamides; Z79.899 Other long term (current) drug therapy
CPT/HCPCS: 93005

== ENCOUNTER 2023-02-21 09:47 | Emergency (ER) | payer OTHER, MEDICAID ==
[~2023-02-21] VITALS: Ht 162.6 cm; Wt 77.3 kg
[~2023-02-21 09:47] MED LIST changes: +AMLO1TAB22 PO; +APIX5TAB PO; +ATOR40TA52 PO; +FERR325T24 PO; +GABA-1250 PO; +HYDR25TA4 PO; +MIDO5TAB22 PO; +PANT1INJ3 PO; +PRAM2.25 PO
[2023-02-21 10:15] VITALS: BP 148/68; PULSE 96
[2023-02-21] MEDS ORDERED: IPRATROPIUM BROM 0.5 MG/2.5ML INH SOL ONE (10:43)
[2023-02-21] MEDS ORDERED: ALBUTEROL MEDNEB 2.5 mg/3ml NEB NEB ONE (10:45)
[2023-02-21] MEDS ORDERED: IPRATROPIUM BROM 0.5 MG/2.5ML INH SOL NEB ONE ×2 (10:45→11:00)
[2023-02-21 10:58] VITALS: RESP 18; O2SAT 96
[2023-02-21] MEDS ORDERED: HYDROcodone-ACET 5/325MG TAB PO ONE (11:45)
[2023-02-21] MEDS ORDERED: methylPREDNISolone SOD SUCC 125 MG/2 ML VL IM ONE (12:00)
[2023-02-22] MEDS ORDERED: ZOFR4T PO (19:30)
== END 2023-02-21 11:54 | disposition home or self-care (01) ==
LOC: EDUNIT# 09:47 → ER 09:47 → EDBD 09:47 → ER 11:54
DX: J45.901 Unspecified asthma with (acute) exacerbation (principal); I12.9 Hypertensive chronic kidney disease with stage 1 through stage 4 chronic kidney disease, or unspecified chronic kidney disease; N18.9 Chronic kidney disease, unspecified; Z87.440 Personal history of urinary (tract) infections; Z90.710 Acquired absence of both cervix and uterus
CPT/HCPCS: 94640; 99283; J7644

== ENCOUNTER 2023-02-22 13:50 | Emergency (ER) | payer OTHER, MEDICAID ==
[~2023-02-22] VITALS: Ht 149.9 cm; Wt 78.0 kg
[2023-02-22 16:29] LABS: Basophils # (auto) 0 10 ^3/uL (0-0.2); Eosinophils # (auto) 0 10 ^3/uL (0-0.8); Lymphocytes # (auto) 0.4 10 ^3/uL (0.4-5.4); Monocytes # (auto) 0.1 10 ^3/uL (0-1.3); Neutrophils # (auto) 9.1 10 ^3/uL (1.6-8.6); White Blood Cell 9.6 10^3/uL (4.4-10.8)
[2023-02-22 16:31] LABS: Basophils % (auto) 0.2 % (0.0-2.0); Eosinophils % (auto) 0.1 % (0.0-7.0); Hematocrit 41.6 % (36.0-46.0); Hemoglobin 13.7 g/dL (12.2-16.2); Lymphocytes % (auto) 4.2 % (10.0-50.0); Mean Corpuscular Hemoglobin 26.3 pg (28.0-32.0); Mean Corpuscular Hgb Conc. 32.8 g/dL (32.0-36.0); Mean Corpuscular Volume 80.1 fL (80.0-100.0); Monocytes % (auto) 1.5 % (0.0-12.0); Red Blood Cells 5.19 10^6/uL (4.0-5.20); Red Cell Distribution Width 16.3 % (11.8-14.3)
[2023-02-22 16:54] LABS: Alanine Aminotransferase 32 U/L (7-40); Albumin 4.7 g/dL (3.2-4.8); Alkaline Phosphatase 131 U/L (46-116); Anion Gap 8 (5-15); Aspartate Aminotransferase 20 U/L (13-40); Bilirubin, Total 1.1 mg/dL (0.2-1.0); Blood Urea Nitrogen 19 mg/dL (9-23); Calcium 9.9 mg/dL (8.7-10.4); Carbon Dioxide 26 mmol/L (20-30); Chloride 103 mmol/L (98-107); Glucose 133 mg/dL (74-106); Potassium 3.7 mmol/L (3.5-5.1); Sodium 137 mmol/L (136-145); Total Protein 7.1 g/dL (5.7-8.2)
[2023-02-22] MEDS ORDERED: ZOFR4T PO (19:30)
[2023-02-22] MEDS ORDERED: KETOROLAC TROMETH 30 MG/ML 1ML VIAL IM ONE (19:30)
[2023-02-22] MEDS ORDERED: ONDANSETRON ODT 4 MG TAB PO ONE (19:30)
[2023-02-22 20:37] VITALS: BP 141/82; PULSE 18; RESP 96; TEMP 98.1; O2SAT 95
== END 2023-02-22 21:00 | disposition home or self-care (01) ==
LOC: EDBD 13:50 → ER 13:50
DX: R51.9 Headache, unspecified (principal); T50.905A Adverse effect of unspecified drugs, medicaments and biological substances, initial encounter; J45.909 Unspecified asthma, uncomplicated; I10 Essential (primary) hypertension; Z90.710 Acquired absence of both cervix and uterus; Z87.440 Personal history of urinary (tract) infections; Z88.2 Allergy status to sulfonamides; Y92.89 Other specified places as the place of occurrence of the external cause
CPT/HCPCS: 36415; 71045; 80053; 85025; 93005; 96372; 99285; J1885; Q0162

== ENCOUNTER 2023-03-07 13:35 | Day surgery (SDC) | payer OTHER, MEDICAID ==
[2023-03-06 15:24] LABS: INR 0.93 (0.9-1.15); Partial Thromboplastin Time 25.1 SEC (24.5-34.5); Prothrombin Time 9.8 sec (9.3-11.8)
[2023-03-06 16:13] LABS: Alanine Aminotransferase 32 U/L (7-40); Aspartate Aminotransferase 33 U/L (13-40); Bilirubin, Total 0.9 mg/dL (0.2-1.0); Blood Urea Nitrogen 22 mg/dL (9-23); Chloride 105 mmol/L (98-107); Potassium 3.3 mmol/L (3.5-5.1); Sodium 140 mmol/L (136-145); Total Protein 6.1 g/dL (5.7-8.2)
[2023-03-06 16:15] LABS: Anion Gap 8 (5-15); Carbon Dioxide 27 mmol/L (20-30)
[2023-03-06 16:16] LABS: Calcium 7.1 mg/dL (8.5-10.1)
[2023-03-06 16:21] LABS: Alkaline Phosphatase 80 U/L (46-116); BUN/Creatinine Ratio 35.5 (10.0-20.0); Glucose 74 mg/dL (74-106)
[2023-03-06 16:50] LABS: Eosinophils # (auto) 0.2 10 ^3/uL (0-0.8); Hemoglobin 11.3 g/dL (12.2-16.2); Lymphocytes # (auto) 0.8 10 ^3/uL (0.4-5.4); Monocytes # (auto) 0.3 10 ^3/uL (0-1.3)
[2023-03-06 16:52] LABS: Basophils # (auto) 0 10 ^3/uL (0-0.2); Basophils % (auto) 0.4 % (0.0-2.0); Eosinophils % (auto) 2.1 % (0.0-7.0); Hematocrit 34.1 % (36.0-46.0); Lymphocytes % (auto) 7.6 % (10.0-50.0); Mean Corpuscular Hemoglobin 26.5 pg (28.0-32.0); Mean Corpuscular Hgb Conc. 33.1 g/dL (32.0-36.0); Mean Corpuscular Volume 79.9 fL (80.0-100.0); Neutrophils # (auto) 9.4 10 ^3/uL (1.6-8.6); Neutrophils % (auto) 86.9 % (37.0-80.0); Red Blood Cells 4.27 10^6/uL (4.0-5.20); Red Cell Distribution Width 16.6 % (11.8-14.3); White Blood Cell 10.8 10^3/uL (4.4-10.8)
[~2023-03-07] VITALS: Ht 149.9 cm; Wt 77.1 kg
[~2023-03-07 13:35] MED LIST changes: -ATOR10TA52 PO; -CEPH500T PO; -FERR45TA7 PO; -GABA-1308 PO; -NITR-87 PO; -PANT1INJ3 PO; -PRAM2.25 PO; +ZOFR4T PO
[2023-03-07] MEDS ORDERED: SODIUM CHLORIDE LOCK 10 ML ONE (14:50)
[2023-03-07] MEDS ORDERED: LIDOCAINE VISCOUS 2% 15ML UD ONE (14:50)
[2023-03-07] MEDS: MIDAZOLAM HCL 5 MG/ML-1ML VIAL ONE ×3 (14:53→14:59)
[2023-03-07] MEDS: diphenhdrAMINE HCL 50 MG/1 ML VL ONE ×2 (14:53→14:56)
[2023-03-07] MEDS: fentaNYL CITRATE 100 MCG/2 ML VL ONE ×3 (14:53→14:59)
[2023-03-07 15:12] VITALS: TEMP 97.4; O2SAT 97
[2023-03-07 15:41] VITALS: BP 136/74; PULSE 80; RESP 20; O2SAT 97
== END 2023-03-07 15:47 | disposition home or self-care (01) ==
LOC: GI 13:35
PROVIDERS: ATTEND Internal Medicine Gastroenterology
DX: R93.3 Abnormal findings on diagnostic imaging of other parts of digestive tract (principal); K63.89 Other specified diseases of intestine; Q43.8 Other specified congenital malformations of intestine
CPT/HCPCS: 36415; 45378; 80053; 85025; 85610; 85730; J1200; J2250; J3010; J7030; 99152

== ENCOUNTER 2023-03-09 23:03 | Emergency (ER) | payer OTHER, MEDICAID ==
[~2023-03-09] VITALS: Ht 172.7 cm; Wt 80.0 kg
[2023-03-09 23:56] LABS: Basophils # (auto) 0 10 ^3/uL (0-0.2); Basophils % (auto) 0.7 % (0.0-2.0); Eosinophils # (auto) 0.3 10 ^3/uL (0-0.8); Eosinophils % (auto) 3.9 % (0.0-7.0); Hematocrit 37.5 % (36.0-46.0); Hemoglobin 12.1 g/dL (12.2-16.2); Lymphocytes # (auto) 0.9 10 ^3/uL (0.4-5.4); Lymphocytes % (auto) 13.1 % (10.0-50.0); Mean Corpuscular Hemoglobin 26.5 pg (28.0-32.0); Mean Corpuscular Hgb Conc. 32.1 g/dL (32.0-36.0); Mean Corpuscular Volume 82.4 fL (80.0-100.0); Monocytes # (auto) 0.4 10 ^3/uL (0-1.3); Monocytes % (auto) 5.7 % (0.0-12.0); Neutrophils % (auto) 76.6 % (37.0-80.0); Red Blood Cells 4.55 10^6/uL (4.0-5.20); Red Cell Distribution Width 16.8 % (11.8-14.3); White Blood Cell 6.5 10^3/uL (4.4-10.8)
[2023-03-10 00:11] LABS: Acetaminophen < 2.0 UG/ML (10.0-20.0)
[2023-03-10 00:12] LABS: Alanine Aminotransferase 31 U/L (7-40); Albumin 4.1 g/dL (3.2-4.8); Alkaline Phosphatase 105 U/L (46-116); Anion Gap 8 (5-15); Aspartate Aminotransferase 21 U/L (13-40); BUN/Creatinine Ratio 15.9 (10.0-20.0); Bilirubin, Total 0.5 mg/dL (0.2-1.0); Blood Alcohol < 3.0 mg/dL (<10); Blood Urea Nitrogen 18 mg/dL (9-23); Calcium 9.3 mg/dL (8.7-10.4); Carbon Dioxide 26 mmol/L (20-30); Chloride 106 mmol/L (98-107); Glucose 114 mg/dL (74-106); Potassium 3.7 mmol/L (3.5-5.1); Sodium 140 mmol/L (136-145); Total Protein 6.4 g/dL (5.7-8.2)
[2023-03-10 00:19] LABS: Salicylate < 3.0 mg/dL (2.8-20.0)
[2023-03-10 01:05] VITALS: PULSE 89; O2SAT 97
[2023-03-10 01:06] LABS: Urine Bacteria NONE SEEN /hpf (None Seen); Urine Blood Negative /uL (Negative); Urine Clarity Clear (Clear); Urine Color Colorless (Yellow); Urine Protein, UAD Negative (Negative); Urine Specific Gravity 1.016 (1.001-1.035); Urine Urobilinogen Normal (Negative); Urine WBC 1 /hpf (0 - 5); Urine pH 5.5 (5.0-8.0)
[2023-03-10 02:32] LABS: Amphetamine Screen, Urine Neg (NEGATIVE)
[2023-03-10 02:33] LABS: Barbiturate Scree,Urine Neg (NEGATIVE); Benzodiazephine Screen, Urine Neg (NEGATIVE); Cannabinoid Screen, Urine Neg (NEGATIVE); Cocaine Screen, Urine Neg (NEGATIVE); Opiate Scree,Urine Neg (NEGATIVE); Phencyclidine Screen, Urine Neg (NEGATIVE)
[2023-03-10 05:19] VITALS: BP 110/68; PULSE 71; RESP 16; TEMP 98.8; O2SAT 96
== END 2023-03-10 16:45 | disposition left against medical advice (07) ==
LOC: EDBD 23:03 → ER 23:03
DX: R45.851 Suicidal ideations (principal); F32.9 Major depressive disorder, single episode, unspecified; F41.9 Anxiety disorder, unspecified; I12.9 Hypertensive chronic kidney disease with stage 1 through stage 4 chronic kidney disease, or unspecified chronic kidney disease; N18.9 Chronic kidney disease, unspecified; J45.909 Unspecified asthma, uncomplicated; Z90.710 Acquired absence of both cervix and uterus; Z87.440 Personal history of urinary (tract) infections; Z79.899 Other long term (current) drug therapy
CPT/HCPCS: 36415; 80053; 80307; 80320; 80329; 81001; 85025; 93005

== ENCOUNTER 2023-05-01 14:52 | Emergency (ER) | payer OTHER, MEDICAID ==
[~2023-05-01] VITALS: Ht 149.9 cm; Wt 77.2 kg
[~2023-05-01 14:52] MED LIST changes: +AZIT500T66 PO
[2023-05-01] MEDS ORDERED: ASPirin 81 mg TAB PO ONE (15:00)
[2023-05-01 15:30] LABS: Basophils # (auto) 0.1 10 ^3/uL (0-0.2); Eosinophils # (auto) 0.2 10 ^3/uL (0-0.8); Eosinophils % (auto) 2.2 % (0.0-7.0); Hematocrit 40.5 % (36.0-46.0); Hemoglobin 13.1 g/dL (12.2-16.2); Lymphocytes # (auto) 1.2 10 ^3/uL (0.4-5.4); Lymphocytes % (auto) 12.2 % (10.0-50.0); Mean Corpuscular Hemoglobin 26.4 pg (28.0-32.0); Mean Corpuscular Hgb Conc. 32.4 g/dL (32.0-36.0); Mean Corpuscular Volume 81.7 fL (80.0-100.0); Monocytes # (auto) 0.6 10 ^3/uL (0-1.3); Monocytes % (auto) 6.7 % (0.0-12.0); Neutrophils # (auto) 7.4 10 ^3/uL (1.6-8.6); Neutrophils % (auto) 77.9 % (37.0-80.0); Red Blood Cells 4.96 10^6/uL (4.0-5.20); Red Cell Distribution Width 15.6 % (11.8-14.3); White Blood Cell 9.5 10^3/uL (4.4-10.8)
[2023-05-01 15:45] LABS: Alanine Aminotransferase 27 U/L (7-40); Albumin 4.5 g/dL (3.2-4.8); Alkaline Phosphatase 105 U/L (46-116); Anion Gap 8 (5-15); Aspartate Aminotransferase 35 U/L (13-40); BUN/Creatinine Ratio 32.6 (10.0-20.0); Bilirubin, Total 0.4 mg/dL (0.2-1.0); Blood Urea Nitrogen 31 mg/dL (9-23); Calcium 9.7 mg/dL (8.5-10.1); Carbon Dioxide 28 mmol/L (20-30); Chloride 106 mmol/L (98-107); Glucose 86 mg/dL (74-106); Potassium 4.4 mmol/L (3.5-5.1); Sodium 142 mmol/L (136-145); Total Protein 6.5 g/dL (5.7-8.2)
[2023-05-01 16:25] VITALS: BP 127/72; PULSE 82; RESP 18; TEMP 98; O2SAT 97
[2023-05-01] MEDS ORDERED: ACETAMINOPHEN 325 MG TAB PO PRN (16:30)
[2023-05-01] MEDS ORDERED: TEMAZEPAM 15 MG CAP PO PRN (16:30)
[2023-05-01] MEDS ORDERED: HYDROcodone-ACET 5/325MG TAB PO PRN (16:30)
[2023-05-01] MEDS ORDERED: ONDANSETRON HCL 4 MG/2 ML VIAL IV PRN (16:30)
[2023-05-01] MEDS ORDERED: NITROGLYCERIN 0.4 MG SL TAB SL PRN (16:30)
[2023-05-01] MEDS ORDERED: MORPHINE SULFATE INJ 2 MG/ml SYRG IV PRN ×2 (16:30)
[2023-05-01] MEDS ORDERED: DOCUSATE SOD 100 MG CAP PO PRN (16:30)
== END 2023-05-01 16:28 | disposition home or self-care (01) ==
LOC: EDBD 14:52 → ER 14:52
DX: R07.89 Other chest pain (principal); I12.9 Hypertensive chronic kidney disease with stage 1 through stage 4 chronic kidney disease, or unspecified chronic kidney disease; N18.30 Chronic kidney disease, stage 3 unspecified; J45.909 Unspecified asthma, uncomplicated; E78.5 Hyperlipidemia, unspecified; Z90.49 Acquired absence of other specified parts of digestive tract; Z90.710 Acquired absence of both cervix and uterus; Z79.899 Other long term (current) drug therapy; Z79.2 Long term (current) use of antibiotics; Z88.2 Allergy status to sulfonamides
CPT/HCPCS: 36415; 80053; 84484; 85025; 93005

== ENCOUNTER 2023-05-06 23:49 | Emergency (ER) | payer OTHER, MEDICAID ==
[~2023-05-06] VITALS: Ht 149.9 cm; Wt 72.6 kg
[2023-05-07 00:50] LABS: Basophils # (auto) 0.1 10 ^3/uL (0-0.2); Eosinophils # (auto) 0.2 10 ^3/uL (0-0.8); Hemoglobin 12.6 g/dL (12.2-16.2); Lymphocytes # (auto) 1.1 10 ^3/uL (0.4-5.4); Mean Corpuscular Hemoglobin 26.9 pg (28.0-32.0); Neutrophils # (auto) 7.4 10 ^3/uL (1.6-8.6); Red Blood Cells 4.69 10^6/uL (4.0-5.20); Red Cell Distribution Width 15.6 % (11.8-14.3)
[2023-05-07 00:54] LABS: Basophils % (auto) 0.9 % (0.0-2.0); Eosinophils % (auto) 2.6 % (0.0-7.0); Hematocrit 38.2 % (36.0-46.0); Lymphocytes % (auto) 11.7 % (10.0-50.0); Mean Corpuscular Volume 81.4 fL (80.0-100.0); Monocytes # (auto) 0.4 10 ^3/uL (0-1.3); Monocytes % (auto) 4.7 % (0.0-12.0); Neutrophils % (auto) 80.1 % (37.0-80.0); Nucleated Red Blood Cells % 0.2 %; White Blood Cell 9.2 10^3/uL (4.4-10.8)
[2023-05-07 00:57] LABS: INR 0.93 (0.9-1.15); Partial Thromboplastin Time 20.5 SEC (24.5-34.5); Prothrombin Time 9.8 sec (9.3-11.8)
[2023-05-07 01:00] LABS: Alanine Aminotransferase 25 U/L (7-40); Albumin 4.1 g/dL (3.2-4.8); Alkaline Phosphatase 93 U/L (46-116); Anion Gap 9 (5-15); Aspartate Aminotransferase 18 U/L (13-40); BUN/Creatinine Ratio 13.7 (10.0-20.0); Blood Urea Nitrogen 17 mg/dL (9-23); Calcium 9.1 mg/dL (8.7-10.4); Carbon Dioxide 26 mmol/L (20-30); Chloride 106 mmol/L (98-107); Glucose 121 mg/dL (74-106); Potassium 3.4 mmol/L (3.5-5.1); Sodium 141 mmol/L (136-145)
[2023-05-07 01:01] LABS: Bilirubin, Total 0.5 mg/dL (0.2-1.0); Total Protein 6.5 g/dL (5.7-8.2)
[2023-05-07 04:03] VITALS: BP 94/51; PULSE 70; RESP 16; O2SAT 97
== END 2023-05-07 05:50 | disposition home or self-care (01) ==
LOC: ER 23:49 → EDBD 23:49 → ER 05-07 05:50
DX: R10.84 Generalized abdominal pain (principal); I12.9 Hypertensive chronic kidney disease with stage 1 through stage 4 chronic kidney disease, or unspecified chronic kidney disease; N18.9 Chronic kidney disease, unspecified; J45.909 Unspecified asthma, uncomplicated; E78.5 Hyperlipidemia, unspecified; F12.10 Cannabis abuse, uncomplicated; Z90.710 Acquired absence of both cervix and uterus
CPT/HCPCS: 36415; 71045; 74176; 80053; 85025; 85610; 85730; 93005

== ENCOUNTER 2023-05-23 17:24 | Emergency (ER) | payer OTHER, MEDICAID ==
[~2023-05-23] VITALS: Ht 162.6 cm; Wt 81.8 kg
[2023-05-23 21:38] VITALS: BP 118/72; PULSE 78; RESP 18; TEMP 98
[2023-05-23 22:01] VITALS: O2SAT 100
[2023-05-23] MEDS ORDERED: AMOX875T4 PO (22:15)
[2023-05-23] MEDS ORDERED: ACET500T58 PO (22:15)
== END 2023-05-23 22:25 | disposition home or self-care (01) ==
LOC: EDBD 17:24 → ER 17:24
DX: S01.312A Laceration without foreign body of left ear, initial encounter (principal); I12.9 Hypertensive chronic kidney disease with stage 1 through stage 4 chronic kidney disease, or unspecified chronic kidney disease; N18.9 Chronic kidney disease, unspecified; J45.909 Unspecified asthma, uncomplicated; E78.5 Hyperlipidemia, unspecified; F12.10 Cannabis abuse, uncomplicated; Z90.710 Acquired absence of both cervix and uterus; Z88.2 Allergy status to sulfonamides; Y04.2XXA Assault by strike against or bumped into by another person, initial encounter; Y93.89 Activity, other specified; Y92.89 Other specified places as the place of occurrence of the external cause; Y99.8 Other external cause status
CPT/HCPCS: 12011

== ENCOUNTER 2023-05-24 12:26 | Emergency (ER) | payer OTHER, MEDICAID ==
[~2023-05-24] VITALS: Ht 162.6 cm; Wt 77.2 kg
[~2023-05-24 12:26] MED LIST changes: +ACET500T58 PO; +AMOX875T4 PO
[2023-05-24 12:39] VITALS: BP 136/70; PULSE 73; RESP 16; O2SAT 99
== END 2023-05-24 13:46 | disposition left against medical advice (07) ==
LOC: ER 12:26 → EDBD 12:26 → ER 13:46
DX: M54.9 Dorsalgia, unspecified (principal); M25.512 Pain in left shoulder; Z53.21 Procedure and treatment not carried out due to patient leaving prior to being seen by health care provider; Y04.2XXA Assault by strike against or bumped into by another person, initial encounter; Y93.89 Activity, other specified; Y92.89 Other specified places as the place of occurrence of the external cause; Y99.8 Other external cause status

== ENCOUNTER 2023-05-25 11:23 | Emergency (ER) | payer OTHER, MEDICAID ==
[~2023-05-25] VITALS: Ht 149.9 cm; Wt 77.2 kg
[2023-05-25 11:28] VITALS: BP 103/64; RESP 18; O2SAT 95
[2023-05-25 11:31] VITALS: PULSE 65
== END 2023-05-25 11:46 | disposition left against medical advice (07) ==
LOC: ER 11:23
DX: R07.89 Other chest pain (principal); G89.4 Chronic pain syndrome; M79.602 Pain in left arm; M79.601 Pain in right arm; M54.9 Dorsalgia, unspecified; I12.9 Hypertensive chronic kidney disease with stage 1 through stage 4 chronic kidney disease, or unspecified chronic kidney disease; N18.9 Chronic kidney disease, unspecified; E78.5 Hyperlipidemia, unspecified; J45.909 Unspecified asthma, uncomplicated; Z90.49 Acquired absence of other specified parts of digestive tract; Z90.710 Acquired absence of both cervix and uterus; Z79.899 Other long term (current) drug therapy; Z79.2 Long term (current) use of antibiotics; Z88.2 Allergy status to sulfonamides
CPT/HCPCS: 93005

== ENCOUNTER 2023-05-28 13:20 | Emergency (ER) | payer OTHER, MEDICAID ==
[~2023-05-28] VITALS: Ht 149.9 cm; Wt 80.3 kg
[2023-05-28 16:00] VITALS: BP 129/75; PULSE 82; RESP 16; TEMP 98.1; O2SAT 97
[2023-05-28] MEDS: ONDANSETRON ODT 4 MG TAB PO ONE (16:02)
== END 2023-05-28 16:35 | disposition home or self-care (01) ==
LOC: ER 13:20
DX: R11.2 Nausea with vomiting, unspecified (principal); I12.9 Hypertensive chronic kidney disease with stage 1 through stage 4 chronic kidney disease, or unspecified chronic kidney disease; N18.9 Chronic kidney disease, unspecified; E78.5 Hyperlipidemia, unspecified; F32.9 Major depressive disorder, single episode, unspecified; F41.9 Anxiety disorder, unspecified; J45.909 Unspecified asthma, uncomplicated; F15.90 Other stimulant use, unspecified, uncomplicated; Z48.00 Encounter for change or removal of nonsurgical wound dressing; Z98.890 Other specified postprocedural states; Z88.8 Allergy status to other drugs, medicaments and biological substances; Z79.899 Other long term (current) drug therapy
CPT/HCPCS: 99283; Q0162

== ENCOUNTER 2023-05-29 11:39 | Emergency (ER) | payer OTHER, MEDICAID ==
[~2023-05-29] VITALS: Ht 149.9 cm; Wt 79.4 kg
[2023-05-29 13:47] VITALS: BP 144/87; PULSE 94; RESP 16; TEMP 98; O2SAT 98
== END 2023-05-29 14:00 | disposition home or self-care (01) ==
LOC: ER 11:39
DX: Z48.02 Encounter for removal of sutures (principal); J45.909 Unspecified asthma, uncomplicated; E78.5 Hyperlipidemia, unspecified; I12.9 Hypertensive chronic kidney disease with stage 1 through stage 4 chronic kidney disease, or unspecified chronic kidney disease; N18.9 Chronic kidney disease, unspecified; Z88.2 Allergy status to sulfonamides; Z90.710 Acquired absence of both cervix and uterus

== ENCOUNTER 2023-06-02 00:11 | Emergency (ER) | payer OTHER, MEDICAID ==
[~2023-06-02] VITALS: Ht 152.4 cm; Wt 80.0 kg
[2023-06-02 01:13] LABS: Eosinophils # (auto) 0.3 10 ^3/uL (0-0.8); Hematocrit 39.6 % (36.0-46.0); Lymphocytes # (auto) 1.3 10 ^3/uL (0.4-5.4); Monocytes # (auto) 0.4 10 ^3/uL (0-1.3); Neutrophils # (auto) 5.1 10 ^3/uL (1.6-8.6)
[2023-06-02 01:14] LABS: Basophils # (auto) 0 10 ^3/uL (0-0.2); Basophils % (auto) 0.7 % (0.0-2.0); Eosinophils % (auto) 4.1 % (0.0-7.0); Hemoglobin 12.9 g/dL (12.2-16.2); Lymphocytes % (auto) 18.4 % (10.0-50.0); Mean Corpuscular Hemoglobin 26.4 pg (28.0-32.0); Mean Corpuscular Hgb Conc. 32.6 g/dL (32.0-36.0); Mean Corpuscular Volume 80.9 fL (80.0-100.0); Monocytes % (auto) 5.9 % (0.0-12.0); Neutrophils % (auto) 70.9 % (37.0-80.0); Red Blood Cells 4.89 10^6/uL (4.0-5.20); Red Cell Distribution Width 15.4 % (11.8-14.3); White Blood Cell 7.2 10^3/uL (4.4-10.8)
[2023-06-02 01:28] LABS: INR 0.94 (0.9-1.15); Partial Thromboplastin Time 24.1 SEC (24.5-34.5); Prothrombin Time 9.9 sec (9.3-11.8)
[2023-06-02 01:30] LABS: Alanine Aminotransferase 24 U/L (7-40); Albumin 4.2 g/dL (3.2-4.8); Alkaline Phosphatase 99 U/L (46-116); Anion Gap 10 (5-15); Aspartate Aminotransferase 20 U/L (13-40); BUN/Creatinine Ratio 20.2 (10.0-20.0); Bilirubin, Total 0.6 mg/dL (0.2-1.0); Blood Urea Nitrogen 17 mg/dL (9-23); Calcium 9.2 mg/dL (8.7-10.4); Carbon Dioxide 23 mmol/L (20-30); Chloride 109 mmol/L (98-107); Glucose 96 mg/dL (74-106); Potassium 3.5 mmol/L (3.5-5.1); Sodium 142 mmol/L (136-145); Total Protein 6.6 g/dL (5.7-8.2)
[2023-06-02 06:10] VITALS: PULSE 71; RESP 20; O2SAT 97
[2023-06-02] MEDS ORDERED: PRED10TA PO (08:02)
[2023-06-02] MEDS: methylPREDNISolone SOD SUCC 125 MG/2 ML VL IV ONE (08:12)
[2023-06-02 08:21] VITALS: BP 155/75; PULSE 69; TEMP 97.9
[2023-06-02 09:10] VITALS: RESP 16; O2SAT 99
[2023-06-02] MEDS: ALBUTEROL SULF 2.5 MG/0.5ML(0.5%) NEB SOLN NEB ONE (09:12)
[2023-06-02] MEDS: IPRATROPIUM BROM 0.5 MG/2.5ML INH SOL NEB ONE (09:13)
[2023-06-02] MEDS: methylPREDNISolone SOD SUCC 125 MG/2 ML VL IM ONE (09:35)
== END 2023-06-02 09:42 | disposition home or self-care (01) ==
LOC: ER 00:11 → EDBD 00:11 → ER 09:41
DX: J45.909 Unspecified asthma, uncomplicated (principal); I12.9 Hypertensive chronic kidney disease with stage 1 through stage 4 chronic kidney disease, or unspecified chronic kidney disease; N18.9 Chronic kidney disease, unspecified; E78.5 Hyperlipidemia, unspecified; F12.10 Cannabis abuse, uncomplicated; Z90.710 Acquired absence of both cervix and uterus
CPT/HCPCS: 36415; 71045; 80053; 83880; 84484; 85025; 85610; 85730; 93005; 94640; 96372; 99285; J2930; J7644

== ENCOUNTER 2023-06-02 17:00 | Emergency (ER) | payer OTHER, MEDICAID ==
[~2023-06-02 17:00] MED LIST changes: +PRED10TA PO
[2023-06-02] MEDS: ALBUTEROL SULF 2.5 MG/0.5ML(0.5%) NEB SOLN NEB ONE (18:01)
== END 2023-06-02 18:17 | disposition home or self-care (01) ==
LOC: EDBD 17:00 → ER 17:00
DX: F41.9 Anxiety disorder, unspecified (principal); I12.9 Hypertensive chronic kidney disease with stage 1 through stage 4 chronic kidney disease, or unspecified chronic kidney disease; N18.9 Chronic kidney disease, unspecified; E78.5 Hyperlipidemia, unspecified; F32.9 Major depressive disorder, single episode, unspecified; J45.909 Unspecified asthma, uncomplicated; F15.90 Other stimulant use, unspecified, uncomplicated; Z98.890 Other specified postprocedural states; Z88.8 Allergy status to other drugs, medicaments and biological substances; Z79.899 Other long term (current) drug therapy
CPT/HCPCS: 93005

== ENCOUNTER 2023-06-12 14:10 | Emergency (ER) | payer OTHER, MEDICAID ==
[~2023-06-12] VITALS: Ht 149.9 cm; Wt 78.0 kg
[2023-06-12 15:59] VITALS: BP 125/89; PULSE 80; RESP 18; TEMP 98.1; O2SAT 96
== END 2023-06-12 16:01 | disposition home or self-care (01) ==
LOC: EDBD 14:10 → ER 14:10
DX: R53.1 Weakness (principal); R42 Dizziness and giddiness; I12.9 Hypertensive chronic kidney disease with stage 1 through stage 4 chronic kidney disease, or unspecified chronic kidney disease; N18.9 Chronic kidney disease, unspecified; J45.909 Unspecified asthma, uncomplicated; E78.5 Hyperlipidemia, unspecified; Z90.49 Acquired absence of other specified parts of digestive tract; Z90.710 Acquired absence of both cervix and uterus; Z79.899 Other long term (current) drug therapy; Z79.2 Long term (current) use of antibiotics; Z88.2 Allergy status to sulfonamides
CPT/HCPCS: 93005

== ENCOUNTER 2023-06-21 15:49 | Emergency (ER) | payer OTHER, MEDICAID ==
[~2023-06-21] VITALS: Ht 149.9 cm; Wt 77.2 kg
[2023-06-21 15:49] VITALS: BP 119/83; RESP 18; O2SAT 96
[2023-06-21 15:59] VITALS: PULSE 86
[2023-06-21] MEDS ORDERED: ACETAMINOPHEN 325 MG TAB PO ONE (17:30)
== END 2023-06-21 19:28 | disposition left against medical advice (07) ==
LOC: EDUNIT# 15:49 → ER 15:49 → EDBD 15:49 → ER 19:28
DX: R07.89 Other chest pain (principal); F41.9 Anxiety disorder, unspecified; I12.9 Hypertensive chronic kidney disease with stage 1 through stage 4 chronic kidney disease, or unspecified chronic kidney disease; N18.9 Chronic kidney disease, unspecified; J45.909 Unspecified asthma, uncomplicated; E78.5 Hyperlipidemia, unspecified; F12.10 Cannabis abuse, uncomplicated; Z90.710 Acquired absence of both cervix and uterus; Z88.2 Allergy status to sulfonamides
CPT/HCPCS: 93005

== ENCOUNTER 2023-08-12 12:01 | Emergency (ER) | payer OTHER, MEDICAID ==
[~2023-08-12] VITALS: Ht 149.9 cm; Wt 81.8 kg
[2023-08-12 13:02] VITALS: BP 145/85; PULSE 100; RESP 18; TEMP 98.2; O2SAT 98
[2023-08-12] MEDS: ACETAMINOPHEN 325 MG TAB PO ONE (14:02)
[2023-08-12] MEDS: methylPREDNISolone SOD SUCC 125 MG/2 ML VL IM ONE (14:02)
== END 2023-08-12 14:21 | disposition home or self-care (01) ==
LOC: ER 12:01 → EDBD 12:01 → ER 14:18
DX: M13.842 Other specified arthritis, left hand (principal); M13.841 Other specified arthritis, right hand; J45.909 Unspecified asthma, uncomplicated; E78.5 Hyperlipidemia, unspecified; I12.9 Hypertensive chronic kidney disease with stage 1 through stage 4 chronic kidney disease, or unspecified chronic kidney disease; N18.9 Chronic kidney disease, unspecified; Z90.710 Acquired absence of both cervix and uterus; Z88.2 Allergy status to sulfonamides
CPT/HCPCS: 96372; 99283; J2930

== ENCOUNTER 2023-08-15 16:00 | Emergency (ER) | payer OTHER, MEDICAID ==
[~2023-08-15] VITALS: Ht 152.4 cm; Wt 90.0 kg
[2023-08-15] MEDS ORDERED: NAP500T PO (18:53)
[2023-08-15 19:04] VITALS: BP 153/89; PULSE 92; RESP 18; O2SAT 97
== END 2023-08-15 19:07 | disposition home or self-care (01) ==
LOC: EDBD 16:00 → ER 16:00
DX: M79.602 Pain in left arm (principal); J45.909 Unspecified asthma, uncomplicated; E78.5 Hyperlipidemia, unspecified; M19.90 Unspecified osteoarthritis, unspecified site; I12.9 Hypertensive chronic kidney disease with stage 1 through stage 4 chronic kidney disease, or unspecified chronic kidney disease; N18.9 Chronic kidney disease, unspecified; F32.A Depression, unspecified; F12.10 Cannabis abuse, uncomplicated; Z87.440 Personal history of urinary (tract) infections; Z88.2 Allergy status to sulfonamides; Z79.899 Other long term (current) drug therapy; Z90.49 Acquired absence of other specified parts of digestive tract; Z90.710 Acquired absence of both cervix and uterus
CPT/HCPCS: 73070; 73090; 93005

== ENCOUNTER 2023-09-02 15:31 | Emergency (ER) | payer OTHER, MEDICAID ==
[~2023-09-02] VITALS: Ht 149.9 cm; Wt 81.8 kg
[2023-09-02 15:43] VITALS: BP 136/81; RESP 16; TEMP 97.6; O2SAT 96
[2023-09-02 16:09] VITALS: PULSE 79
[2023-09-02] MEDS: ACETAMINOPHEN/CODEINE#3 (300/30mg) TAB PO ONE (16:36)
[2023-09-02] MEDS: ACETAMINOPHEN 500 MG TAB PO ONE (18:18)
== END 2023-09-02 18:24 | disposition home or self-care (01) ==
LOC: ER 15:31 → EDBD 15:31 → ER 18:24
DX: R07.9 Chest pain, unspecified (principal); J45.909 Unspecified asthma, uncomplicated; I12.9 Hypertensive chronic kidney disease with stage 1 through stage 4 chronic kidney disease, or unspecified chronic kidney disease; N18.9 Chronic kidney disease, unspecified; E78.5 Hyperlipidemia, unspecified; F12.10 Cannabis abuse, uncomplicated; Z90.710 Acquired absence of both cervix and uterus; Z88.2 Allergy status to sulfonamides
CPT/HCPCS: 36415; 71045; 84484; 93005

== ENCOUNTER 2023-09-02 18:19 | Emergency (ER) | payer OTHER, MEDICAID ==
[~2023-09-02] VITALS: Ht 149.9 cm; Wt 81.2 kg
[2023-09-02 18:35] VITALS: BP 152/78; PULSE 87; RESP 2; O2SAT 97
== END 2023-09-02 18:58 | disposition left against medical advice (07) ==
LOC: ER 18:19
DX: R51.9 Headache, unspecified (principal); Z53.21 Procedure and treatment not carried out due to patient leaving prior to being seen by health care provider

== ENCOUNTER 2023-09-08 02:24 | Emergency (ER) | payer OTHER, MEDICAID ==
[~2023-09-08] VITALS: Ht 149.9 cm; Wt 84.6 kg
[2023-09-08 02:46] VITALS: BP 159/78; PULSE 88; RESP 16; TEMP 98.1; O2SAT 96
== END 2023-09-08 05:06 | disposition home or self-care (01) ==
LOC: ER 02:24
DX: R30.0 Dysuria (principal); I12.9 Hypertensive chronic kidney disease with stage 1 through stage 4 chronic kidney disease, or unspecified chronic kidney disease; N18.9 Chronic kidney disease, unspecified; J45.909 Unspecified asthma, uncomplicated; F41.9 Anxiety disorder, unspecified; F32.9 Major depressive disorder, single episode, unspecified; E78.5 Hyperlipidemia, unspecified; F15.90 Other stimulant use, unspecified, uncomplicated; Z98.890 Other specified postprocedural states; Z88.2 Allergy status to sulfonamides; Z79.899 Other long term (current) drug therapy
CPT/HCPCS: 81002; 87086

== ENCOUNTER 2023-09-13 19:02 | Emergency (ER) | payer OTHER, MEDICAID ==
[~2023-09-13] VITALS: Ht 149.9 cm; Wt 81.4 kg
[2023-09-13 20:33] LABS: Basophils # (auto) 0.1 10 ^3/uL (0-0.2); Eosinophils # (auto) 0.1 10 ^3/uL (0-0.8); Lymphocytes # (auto) 0.6 10 ^3/uL (0.4-5.4); Monocytes # (auto) 0.6 10 ^3/uL (0-1.3); Monocytes % (auto) 3.4 % (0.0-12.0)
[2023-09-13 20:34] LABS: Basophils % (auto) 0.5 % (0.0-2.0); Eosinophils % (auto) 0.6 % (0.0-7.0); Hematocrit 41.8 % (36.0-46.0); Hemoglobin 13.6 g/dL (12.2-16.2); Lymphocytes % (auto) 3.3 % (10.0-50.0); Mean Corpuscular Hgb Conc. 32.6 g/dL (32.0-36.0); Mean Corpuscular Volume 82.9 fL (80.0-100.0); Neutrophils # (auto) 16.5 10 ^3/uL (1.6-8.6); Neutrophils % (auto) 92.2 % (37.0-80.0); Red Blood Cells 5.05 10^6/uL (4.0-5.20); Red Cell Distribution Width 16.5 % (11.8-14.3); White Blood Cell 17.9 10^3/uL (4.4-10.8)
[2023-09-13 20:42] LABS: Chloride 100 mmol/L (98-107); Potassium 2.6 mmol/L (3.5-5.1); Sodium 138 mmol/L (136-145)
[2023-09-13 20:48] LABS: Glucose 160 mg/dL (74-106)
[2023-09-13 20:49] LABS: BUN/Creatinine Ratio 28.5 (10.0-20.0); Blood Urea Nitrogen 37 mg/dL (9-23)
[2023-09-13 20:52] LABS: Anion Gap 9 (5-15); Carbon Dioxide 29 mmol/L (20-30)
[2023-09-13 21:55] LABS: Urine Bacteria None Seen /hpf (None Seen)
[2023-09-13 22:11] LABS: Urine Blood Negative /uL (Negative); Urine Clarity Clear (Clear); Urine Color Yellow (Yellow); Urine Protein, UAD Negative (Negative); Urine Specific Gravity 1.019 (1.001-1.035); Urine Urobilinogen Normal (Negative); Urine WBC 3 /hpf (0 - 5); Urine pH 5.5 (5.0-9.0)
[2023-09-13] MEDS: CIPROFLOXACIN HCL 500 MG TAB PO ONE (22:41)
[2023-09-13] MEDS: POTASSIUM EFFERVESENT TAB 25 MEQ PO ONE (22:41)
[2023-09-13] MEDS ORDERED: ACET500T58 PO (23:35)
[2023-09-13] MEDS ORDERED: CIPR-173 PO (23:35)
[2023-09-14 01:30] VITALS: BP 142/67; PULSE 96; RESP 18; TEMP 98.4; O2SAT 98
== END 2023-09-14 01:32 | disposition home or self-care (01) ==
LOC: ER 19:02
DX: A03.9 Shigellosis, unspecified (principal); I12.9 Hypertensive chronic kidney disease with stage 1 through stage 4 chronic kidney disease, or unspecified chronic kidney disease; N18.9 Chronic kidney disease, unspecified; E78.5 Hyperlipidemia, unspecified; J45.909 Unspecified asthma, uncomplicated; F12.10 Cannabis abuse, uncomplicated; Z90.710 Acquired absence of both cervix and uterus; Z88.2 Allergy status to sulfonamides
CPT/HCPCS: 36415; 80048; 81001; 85025; 93005

== ENCOUNTER 2023-09-16 12:58 | Emergency (ER) | payer OTHER, MEDICAID ==
[~2023-09-16] VITALS: Ht 149.9 cm; Wt 86.3 kg
[~2023-09-16 12:58] MED LIST changes: +CIPR-173 PO
[2023-09-16] MEDS: ALBUTEROL SULF 2.5 MG/0.5ML(0.5%) NEB SOLN NEB ONE (13:25)
[2023-09-16] MEDS: IPRATROPIUM BROM 0.5 MG/2.5ML INH SOL NEB ONE (13:25)
[2023-09-16] MEDS: methylPREDNISolone SOD SUCC 125 MG/2 ML VL IV ONE (15:01)
[2023-09-16] MEDS: MAGNESIUM SULFATE 1GM/100ML 100 ML IV ONE (15:01)
[2023-09-16 15:03] VITALS: BP 120/64; PULSE 98; RESP 19; TEMP 98; O2SAT 97
[2023-09-16 15:12] LABS: Basophils # (auto) 0.1 10 ^3/uL (0-0.2); Basophils % (auto) 0.7 % (0.0-2.0); Eosinophils # (auto) 0.2 10 ^3/uL (0-0.8); Eosinophils % (auto) 2.2 % (0.0-7.0); Hematocrit 35.8 % (36.0-46.0); Hemoglobin 11.8 g/dL (12.2-16.2); Lymphocytes # (auto) 0.8 10 ^3/uL (0.4-5.4); Lymphocytes % (auto) 10.1 % (10.0-50.0); Mean Corpuscular Hemoglobin 27.1 pg (28.0-32.0); Mean Corpuscular Hgb Conc. 32.9 g/dL (32.0-36.0); Mean Corpuscular Volume 82.4 fL (80.0-100.0); Monocytes # (auto) 0.4 10 ^3/uL (0-1.3); Monocytes % (auto) 5.2 % (0.0-12.0); Neutrophils # (auto) 6.5 10 ^3/uL (1.6-8.6); Neutrophils % (auto) 81.8 % (37.0-80.0); Red Blood Cells 4.35 10^6/uL (4.0-5.20); Red Cell Distribution Width 15.9 % (11.8-14.3)
[2023-09-16 15:23] LABS: Chloride 103 mmol/L (98-107); Potassium 2.6 mmol/L (3.5-5.1); Sodium 139 mmol/L (136-145)
[2023-09-16 15:24] LABS: Anion Gap 5 (5-15); Carbon Dioxide 31 mmol/L (20-30)
[2023-09-16 15:25] LABS: Calcium 9.4 mg/dL (8.7-10.4)
[2023-09-16 15:30] LABS: BUN/Creatinine Ratio 18.6 (10.0-20.0); Blood Urea Nitrogen 16 mg/dL (9-23); Glucose 112 mg/dL (74-106)
== END 2023-09-16 15:22 | disposition home or self-care (01) ==
LOC: EDBD 12:58 → ER 13:05
DX: J45.901 Unspecified asthma with (acute) exacerbation (principal); J98.4 Other disorders of lung; I12.9 Hypertensive chronic kidney disease with stage 1 through stage 4 chronic kidney disease, or unspecified chronic kidney disease; N18.9 Chronic kidney disease, unspecified; F41.9 Anxiety disorder, unspecified; F32.9 Major depressive disorder, single episode, unspecified; E78.5 Hyperlipidemia, unspecified; F15.90 Other stimulant use, unspecified, uncomplicated; Z98.890 Other specified postprocedural states; Z88.2 Allergy status to sulfonamides; Z79.899 Other long term (current) drug therapy
CPT/HCPCS: 36415; 80048; 84484; 85025; 93005; 94640; 96365; 96375; 99284; J2919; J3475; J7644

== ENCOUNTER 2023-09-21 17:23 | Emergency (ER) | payer OTHER, MEDICAID ==
[~2023-09-21] VITALS: Ht 157.5 cm; Wt 78.0 kg
[2023-09-21 19:38] LABS: Basophils # (auto) 0.1 10 ^3/uL (0-0.2); Eosinophils # (auto) 0.3 10 ^3/uL (0-0.8); Eosinophils % (auto) 2.7 % (0.0-7.0); Hematocrit 44.1 % (36.0-46.0); Hemoglobin 14.8 g/dL (12.2-16.2); Lymphocytes # (auto) 1.5 10 ^3/uL (0.4-5.4); Lymphocytes % (auto) 15.8 % (10.0-50.0); Mean Corpuscular Hemoglobin 27.3 pg (28.0-32.0); Mean Corpuscular Hgb Conc. 33.4 g/dL (32.0-36.0); Mean Corpuscular Volume 81.5 fL (80.0-100.0); Monocytes # (auto) 0.6 10 ^3/uL (0-1.3); Monocytes % (auto) 6.4 % (0.0-12.0); Neutrophils # (auto) 7.2 10 ^3/uL (1.6-8.6); Neutrophils % (auto) 74.1 % (37.0-80.0); Red Blood Cells 5.41 10^6/uL (4.0-5.20); Red Cell Distribution Width 16.2 % (11.8-14.3); White Blood Cell 9.7 10^3/uL (4.4-10.8)
[2023-09-21 19:49] LABS: Chloride 106 mmol/L (98-107); Potassium 3.1 mmol/L (3.5-5.1); Sodium 139 mmol/L (136-145)
[2023-09-21 19:50] LABS: Anion Gap 6 (5-15); Calcium 10.1 mg/dL (8.5-10.1); Carbon Dioxide 27 mmol/L (20-30)
[2023-09-21 19:55] LABS: Blood Urea Nitrogen 19 mg/dL (9-23); Glucose 104 mg/dL (74-106)
[2023-09-21] MEDS: POTASSIUM CHL 20 Meq TABLET PO ONE (21:30)
[2023-09-22 02:34] LABS: Urine Bacteria None Seen /hpf (None Seen)
[2023-09-22 02:35] VITALS: BP 133/80; PULSE 85; RESP 18; TEMP 97.9; O2SAT 98
[2023-09-22 03:06] LABS: Urine Blood Negative /uL (Negative); Urine Clarity Clear (Clear); Urine Color Yellow (Yellow); Urine Hyaline Cast FEW /lpf (0 - 2); Urine Mucus FEW (None Seen); Urine Protein, UAD TRACE (Negative); Urine Specific Gravity 1.035 (1.001-1.035); Urine Urobilinogen Normal (Negative); Urine WBC 1 /hpf (0 - 5)
== END 2023-09-21 21:30 | disposition home or self-care (01) ==
LOC: EDBD → ER 17:23
DX: R33.9 Retention of urine, unspecified (principal); I12.9 Hypertensive chronic kidney disease with stage 1 through stage 4 chronic kidney disease, or unspecified chronic kidney disease; N18.9 Chronic kidney disease, unspecified; F41.9 Anxiety disorder, unspecified; F32.9 Major depressive disorder, single episode, unspecified; E78.5 Hyperlipidemia, unspecified; F15.90 Other stimulant use, unspecified, uncomplicated; Z98.890 Other specified postprocedural states; Z88.2 Allergy status to sulfonamides; Z79.899 Other long term (current) drug therapy
CPT/HCPCS: 36415; 51702; 80048; 81001; 85025

== ENCOUNTER 2023-09-23 11:21 | Emergency (ER) | payer OTHER, MEDICAID ==
[~2023-09-23] VITALS: Ht 149.9 cm; Wt 85.9 kg
[2023-09-23 12:18] VITALS: BP 110/69; PULSE 78; RESP 16; TEMP 98; O2SAT 95
== END 2023-09-23 13:50 | disposition home or self-care (01) ==
LOC: ER 11:21 → EDBD 11:21 → ER 13:50
DX: R33.9 Retention of urine, unspecified (principal); I12.9 Hypertensive chronic kidney disease with stage 1 through stage 4 chronic kidney disease, or unspecified chronic kidney disease; N18.9 Chronic kidney disease, unspecified; E78.5 Hyperlipidemia, unspecified; F12.10 Cannabis abuse, uncomplicated; J45.909 Unspecified asthma, uncomplicated; Z90.710 Acquired absence of both cervix and uterus; Z88.2 Allergy status to sulfonamides; Z46.6 Encounter for fitting and adjustment of urinary device

== ENCOUNTER 2023-09-26 08:47 | Emergency (ER) | payer OTHER, MEDICAID ==
[~2023-09-26] VITALS: Ht 149.9 cm; Wt 72.0 kg
[2023-09-26] MEDS: ASPirin 81 mg TAB PO ONE (09:24)
[2023-09-26 10:30] VITALS: BP 134/69; PULSE 76; RESP 16; TEMP 98.4; O2SAT 93
[2023-09-26] MEDS: LORazepam 0.5 MG TAB PO ONE (10:40)
== END 2023-09-26 10:40 | disposition left against medical advice (07) ==
LOC: ER 08:47 → EDBD 08:47 → ER 10:40
DX: F41.9 Anxiety disorder, unspecified (principal); J45.909 Unspecified asthma, uncomplicated; I12.9 Hypertensive chronic kidney disease with stage 1 through stage 4 chronic kidney disease, or unspecified chronic kidney disease; N18.9 Chronic kidney disease, unspecified; F32.A Depression, unspecified; E78.5 Hyperlipidemia, unspecified; F12.10 Cannabis abuse, uncomplicated; Z90.49 Acquired absence of other specified parts of digestive tract; Z90.710 Acquired absence of both cervix and uterus; Z88.2 Allergy status to sulfonamides; Z79.899 Other long term (current) drug therapy
CPT/HCPCS: 93005

== ENCOUNTER 2023-10-21 13:29 | Emergency (ER) | payer OTHER, MEDICAID ==
[~2023-10-21] VITALS: Ht 149.9 cm; Wt 170.0 kg
[2023-10-21 14:19] LABS: Basophils # (auto) 0.1 10 ^3/uL (0-0.2); Basophils % (auto) 1.1 % (0.0-2.0); Eosinophils # (auto) 0.1 10 ^3/uL (0-0.8); Eosinophils % (auto) 1.6 % (0.0-7.0); Hematocrit 40.6 % (36.0-46.0); Hemoglobin 13.4 g/dL (12.2-16.2); Lymphocytes # (auto) 1.1 10 ^3/uL (0.4-5.4); Lymphocytes % (auto) 12.5 % (10.0-50.0); Mean Corpuscular Hemoglobin 27.1 pg (28.0-32.0); Mean Corpuscular Volume 82.2 fL (80.0-100.0); Monocytes # (auto) 0.5 10 ^3/uL (0-1.3); Monocytes % (auto) 6.2 % (0.0-12.0); Neutrophils # (auto) 6.9 10 ^3/uL (1.6-8.6); Neutrophils % (auto) 78.6 % (37.0-80.0); Red Blood Cells 4.93 10^6/uL (4.0-5.20); White Blood Cell 8.7 10^3/uL (4.4-10.8)
[2023-10-21 14:21] LABS: Urine Bacteria FEW /hpf (None Seen); Urine Blood Negative /uL (Negative); Urine Clarity Clear (Clear); Urine Color Yellow (Yellow); Urine Mucus FEW (None Seen); Urine Protein, UAD 1+ (Negative); Urine Specific Gravity 1.034 (1.001-1.035); Urine Urobilinogen 2 mg/dL (Negative); Urine WBC 78 /hpf (0 - 5)
[2023-10-21] MEDS: PANTOPRAZOLE 40 MG/10 ML VIAL INJ IV ONE (14:21)
[2023-10-21] MEDS: ONDANSETRON HCL 4 MG/2 ML VIAL IV ONE (14:22)
[2023-10-21] MEDS: MORPHINE SULFATE 4 MG/ML SYR/VIAL IV ONE (14:23)
[2023-10-21 14:29] LABS: Alkaline Phosphatase 109 U/L (46-116); Anion Gap 9 (5-15); Aspartate Aminotransferase 37 U/L (13-40); Calcium 9.8 mg/dL (8.7-10.4); Carbon Dioxide 24 mmol/L (20-30); Chloride 111 mmol/L (98-107); Glucose 110 mg/dL (74-106); Sodium 144 mmol/L (136-145)
[2023-10-21 14:30] LABS: Albumin 4.2 g/dL (3.2-4.8); Bilirubin, Total 0.8 mg/dL (0.2-1.0); Total Protein 6.4 g/dL (5.7-8.2)
[2023-10-21 14:32] LABS: Alanine Aminotransferase 29 U/L (7-40); BUN/Creatinine Ratio 29.3 (10.0-20.0); Blood Urea Nitrogen 27 mg/dL (9-23); Lipase 80 U/L (12-53); Potassium 4.1 mmol/L (3.5-5.1)
[2023-10-21 17:25] VITALS: BP 136/76; PULSE 80; RESP 17; TEMP 97.7; O2SAT 93
== END 2023-10-21 20:55 | disposition left against medical advice (07) ==
LOC: EDBD 13:29 → ER 13:29
DX: K85.90 Acute pancreatitis without necrosis or infection, unspecified (principal); J45.909 Unspecified asthma, uncomplicated; I12.9 Hypertensive chronic kidney disease with stage 1 through stage 4 chronic kidney disease, or unspecified chronic kidney disease; N18.9 Chronic kidney disease, unspecified; E78.5 Hyperlipidemia, unspecified; Z90.710 Acquired absence of both cervix and uterus; Z88.2 Allergy status to sulfonamides
CPT/HCPCS: 36415; 74176; 80053; 81001; 83690; 85025; 96374; 96375; 99285; J2270; J2405

== ENCOUNTER 2023-10-24 13:07 | Inpatient (IN) | payer OTHER, MEDICAID ==
[~2023-10-24] VITALS: Ht 149.9 cm; Wt 79.1 kg
[2023-10-24 13:33] LABS: Urine Bacteria None Seen /hpf (None Seen)
[2023-10-24 13:44] LABS: Urine Blood Negative /uL (Negative); Urine Clarity Clear (Clear); Urine Color Light-Yellow (Yellow); Urine Protein, UAD Negative (Negative); Urine Specific Gravity 1.009 (1.001-1.035); Urine Urobilinogen Normal (Negative); Urine WBC 5 /hpf (0 - 5); Urine pH 5.5 (5.0-9.0)
[2023-10-24 15:43] LABS: Basophils # (auto) 0.1 10 ^3/uL (0-0.2); Eosinophils # (auto) 0.2 10 ^3/uL (0-0.8); Eosinophils % (auto) 1.9 % (0.0-7.0); Hematocrit 41.4 % (36.0-46.0); Hemoglobin 13.9 g/dL (12.2-16.2); Lymphocytes % (auto) 11.1 % (10.0-50.0); Mean Corpuscular Hemoglobin 27.3 pg (28.0-32.0); Mean Corpuscular Hgb Conc. 33.6 g/dL (32.0-36.0); Mean Corpuscular Volume 81.3 fL (80.0-100.0); Monocytes # (auto) 0.4 10 ^3/uL (0-1.3); Monocytes % (auto) 4.1 % (0.0-12.0); Neutrophils # (auto) 7.2 10 ^3/uL (1.6-8.6); Neutrophils % (auto) 81.9 % (37.0-80.0); Red Blood Cells 5.09 10^6/uL (4.0-5.20); Red Cell Distribution Width 15.9 % (11.8-14.3); White Blood Cell 8.8 10^3/uL (4.4-10.8)
[2023-10-24 16:09] LABS: Alanine Aminotransferase 29 U/L (7-40); Albumin 4.7 g/dL (3.2-4.8); Alkaline Phosphatase 121 U/L (46-116); Anion Gap 9 (5-15); Aspartate Aminotransferase 21 U/L (13-40); BUN/Creatinine Ratio 21.9 (10.0-20.0); Bilirubin, Total 1.1 mg/dL (0.2-1.0); Blood Urea Nitrogen 21 mg/dL (9-23); Calcium 10.6 mg/dL (8.7-10.4); Carbon Dioxide 27 mmol/L (20-30); Chloride 104 mmol/L (98-107); Glucose 96 mg/dL (74-106); Lipase 54 U/L (12-53); Potassium 3.4 mmol/L (3.5-5.1); Sodium 140 mmol/L (136-145); Total Protein 7.4 g/dL (5.7-8.2)
[2023-10-24] MEDS: PANTOPRAZOLE 40 MG TAB PO ONE (18:17)
[2023-10-24] MEDS: SUCRALFATE 1 GM TAB PO ONE (18:17)
[2023-10-24] MEDS: LIDOCAINE VISCOUS 2% 15ML UD PO ONE (18:17)
[2023-10-24] MEDS ORDERED: NITROGLYCERIN 0.4 MG SL TAB SL PRN (22:00)
[2023-10-24] MEDS ORDERED: MORPHINE SULFATE INJ 2 MG/ml SYRG IV PRN (22:00)
[2023-10-24] MEDS ORDERED: TEMAZEPAM 15 MG CAP PO PRN (22:00)
[2023-10-24] MEDS ORDERED: DOCUSATE SOD 100 MG CAP PO PRN (22:00)
[2023-10-24] MEDS ORDERED: ACETAMINOPHEN 325 MG TAB PO PRN (22:00)
[2023-10-24] MEDS: SUCRALFATE 1 GM/10 ML ORAL SUSP PO SCH (23:26)
[2023-10-24] MEDS: MONTELUKAST SODIUM 10 MG TAB PO SCH (23:27)
[2023-10-24] MEDS: APIXABAN 5 MG TAB PO SCH (23:27)
[2023-10-24] MEDS: GABAPENTIN 300 MG CAP PO SCH (23:27)
[2023-10-24 23:30] VITALS: BP 126/70; PULSE 69; RESP 18; TEMP 97.7; O2SAT 96
[2023-10-25] VITALS (10 sets, daily range): BP systolic 89–126; BP diastolic 41–70; PULSE 57–76; RESP 16–22; TEMP 97.7–98.7; O2SAT 92–96
[2023-10-25] MEDS: MORPHINE SULFATE INJ 2 MG/ml SYRG IV PRN (00:56)
[2023-10-25 05:54] LABS: Basophils # (auto) 0 10 ^3/uL (0-0.2); Basophils % (auto) 0.9 % (0.0-2.0); Eosinophils # (auto) 0.2 10 ^3/uL (0-0.8); Eosinophils % (auto) 3.1 % (0.0-7.0); Hematocrit 36.9 % (36.0-46.0); Hemoglobin 12.5 g/dL (12.2-16.2); Lymphocytes % (auto) 18.6 % (10.0-50.0); Mean Corpuscular Hemoglobin 27.2 pg (28.0-32.0); Mean Corpuscular Hgb Conc. 33.8 g/dL (32.0-36.0); Mean Corpuscular Volume 80.4 fL (80.0-100.0); Monocytes # (auto) 0.4 10 ^3/uL (0-1.3); Monocytes % (auto) 7.8 % (0.0-12.0); Neutrophils # (auto) 3.9 10 ^3/uL (1.6-8.6); Neutrophils % (auto) 69.6 % (37.0-80.0); Nucleated Red Blood Cells % 0.1 %; White Blood Cell 5.6 10^3/uL (4.4-10.8)
[2023-10-25 06:20] LABS: Alanine Aminotransferase 22 U/L (7-40); Alkaline Phosphatase 106 U/L (46-116); Anion Gap 7 (5-15); Aspartate Aminotransferase 14 U/L (13-40); BUN/Creatinine Ratio 22.9 (10.0-20.0); Bilirubin, Total 1.3 mg/dL (0.2-1.0); Blood Urea Nitrogen 25 mg/dL (9-23); Calcium 9.6 mg/dL (8.5-10.1); Carbon Dioxide 29 mmol/L (20-30); Chloride 105 mmol/L (98-107); Glucose 97 mg/dL (74-106); Potassium 3.1 mmol/L (3.5-5.1); Sodium 141 mmol/L (136-145)
[2023-10-25 06:21] LABS: Total Protein 6.1 g/dL (5.7-8.2)
[2023-10-25 08:33] LABS: Hepatitis B Surface Antigen Negative (Negative)
[2023-10-25 08:48] LABS: Hepatitis C Antibody Negative (Negative)
[2023-10-25] MEDS: amLODIPine BESYLATE 5 MG TAB PO SCH (09:06)
[2023-10-25] MEDS: LISINOPRIL 5 MG TAB PO SCH (09:07)
[2023-10-25] MEDS: OXYCODONE W/ ACETAMINOPHEN 5/325MG TABLET PO SCH (09:09)
[2023-10-25] MEDS: PANTOPRAZOLE 40 MG/10 ML VIAL INJ IV SCH (09:09)
[2023-10-25] MEDS: CITALOPRAM HYDROBR 20 MG TAB PO SCH (09:10)
[2023-10-25] MEDS ORDERED: ALPRAZolam 0.5 MG TAB PO PRN (14:15)
[2023-10-25] MEDS: LACTULOSE 20Gm/30ML SOLN PO SCH (14:45)
[2023-10-26 05:00] VITALS: BP 90/53; PULSE 61; TEMP 98; O2SAT 96
[2023-10-26 08:00] VITALS: PULSE 73
[2023-10-26 09:00] VITALS: BP 128/55; PULSE 62; RESP 16; TEMP 98; O2SAT 98
[2023-10-26] MEDS: POTASSIUM EFFERVESENT TAB 25 MEQ GT ONE (10:01)
[2023-10-26] MEDS: ONDANSETRON HCL 4 MG/2 ML VIAL IV PRN (11:33)
[2023-10-26] MEDS: IOHEXOL 300 MG/ML 100ML BOTTLE IJ ONE (11:34)
[2023-10-26] MEDS: POTASSIUM CHL 20 Meq TABLET PO ONE (12:27)
[2023-10-26 13:00] VITALS: BP 130/57; PULSE 63; RESP 16; TEMP 98; O2SAT 99
[2023-10-26 16:46] VITALS: BP 130/57; PULSE 63; RESP 16; TEMP 98; O2SAT 99
[2023-10-26 17:25] VITALS: BP 133/65; PULSE 68; RESP 18; TEMP 98.6; O2SAT 96
== END 2023-10-26 17:57 | disposition home or self-care (01) | DRG 392 ==
LOC: ER 13:07 → TELE 22:03 → TELE-WESTW 22:03
PROVIDERS: ADMIT Nurse Practitioner; ATTEND Nurse Practitioner
DX: K59.00 Constipation, unspecified (principal); J45.909 Unspecified asthma, uncomplicated; F41.9 Anxiety disorder, unspecified; E66.9 Obesity, unspecified; I27.20 Pulmonary hypertension, unspecified; M54.50 Low back pain, unspecified; G62.9 Polyneuropathy, unspecified; F32.A Depression, unspecified; M06.9 Rheumatoid arthritis, unspecified; N31.9 Neuromuscular dysfunction of bladder, unspecified; I12.9 Hypertensive chronic kidney disease with stage 1 through stage 4 chronic kidney disease, or unspecified chronic kidney disease; N18.9 Chronic kidney disease, unspecified; E78.5 Hyperlipidemia, unspecified; Z90.49 Acquired absence of other specified parts of digestive tract; Z90.710 Acquired absence of both cervix and uterus; Z88.2 Allergy status to sulfonamides; Z79.899 Other long term (current) drug therapy; Z79.1 Long term (current) use of non-steroidal anti-inflammatories (NSAID); Z80.1 Family history of malignant neoplasm of trachea, bronchus and lung; Z68.35 Body mass index [BMI] 35.0-35.9, adult; Z87.891 Personal history of nicotine dependence; Z85.118 Personal history of other malignant neoplasm of bronchus and lung; Z86.718 Personal history of other venous thrombosis and embolism; Z95.1 Presence of aortocoronary bypass graft; Z87.19 Personal history of other diseases of the digestive system; Z79.01 Long term (current) use of anticoagulants
CPT/HCPCS: 36415; 74176; 74177; 76705; 80053; 81001; 83605; 83690; 84484; 85025; 86803; 87340; 93306; G0378; J2405; J2470

== ENCOUNTER 2023-10-30 00:21 | Emergency (ER) | payer OTHER, MEDICAID ==
[~2023-10-30] VITALS: Ht 157.5 cm; Wt 90.9 kg
[~2023-10-30 00:21] MED LIST changes: -ACET-1079 PO; -ACET500T58 PO; -ALBU0.08 HHN; -AMLO1TAB22 PO; -AMOX875T4 PO; -AZIT500T66 PO; -CIPR-173 PO; -CYCL-837 PO; -KETO10TA PO; -MIDO5TAB22 PO; -NAP500T PO; -PRED10TA PO; -ZOFR4T PO
[2023-10-30 00:27] VITALS: BP 119/73; PULSE 88; RESP 12; O2SAT 95
[2023-10-30 04:24] LABS: Basophils # (auto) 0.1 10 ^3/uL (0-0.2); Basophils % (auto) 1.3 % (0.0-2.0); Eosinophils # (auto) 0.2 10 ^3/uL (0-0.8); Eosinophils % (auto) 2.7 % (0.0-7.0); Hematocrit 42.6 % (36.0-46.0); Hemoglobin 14.4 g/dL (12.2-16.2); Lymphocytes # (auto) 1.1 10 ^3/uL (0.4-5.4); Lymphocytes % (auto) 18.6 % (10.0-50.0); Mean Corpuscular Hemoglobin 27.6 pg (28.0-32.0); Mean Corpuscular Hgb Conc. 33.8 g/dL (32.0-36.0); Mean Corpuscular Volume 81.7 fL (80.0-100.0); Monocytes # (auto) 0.5 10 ^3/uL (0-1.3); Monocytes % (auto) 8.9 % (0.0-12.0); Neutrophils # (auto) 4.1 10 ^3/uL (1.6-8.6); Neutrophils % (auto) 68.5 % (37.0-80.0); Nucleated Red Blood Cells % 0.1 %; Red Blood Cells 5.21 10^6/uL (4.0-5.20)
[2023-10-30 04:44] LABS: INR 0.98 (0.9-1.15); Partial Thromboplastin Time 27.2 SEC (24.5-34.5); Prothrombin Time 10.4 sec (9.3-11.8)
[2023-10-30 04:45] LABS: Alanine Aminotransferase 38 U/L (7-40); Albumin 4.6 g/dL (3.2-4.8); Alkaline Phosphatase 120 U/L (46-116); Anion Gap 8 (5-15); Aspartate Aminotransferase 22 U/L (13-40); BUN/Creatinine Ratio 15.3 (10.0-20.0); Blood Urea Nitrogen 20 mg/dL (9-23); Calcium 10.6 mg/dL (8.7-10.4); Carbon Dioxide 28 mmol/L (20-30); Chloride 102 mmol/L (98-107); Glucose 104 mg/dL (74-106); Lipase 54 U/L (12-53); Potassium 3.2 mmol/L (3.5-5.1); Sodium 138 mmol/L (136-145)
[2023-10-30 04:46] LABS: Bilirubin, Total 0.8 mg/dL (0.2-1.0); Total Protein 7.3 g/dL (5.7-8.2)
== END 2023-10-30 06:25 | disposition left against medical advice (07) ==
LOC: ER 00:21 → EDBD 00:21 → ER 06:25
DX: R10.84 Generalized abdominal pain (principal); J45.909 Unspecified asthma, uncomplicated; E78.5 Hyperlipidemia, unspecified; I12.9 Hypertensive chronic kidney disease with stage 1 through stage 4 chronic kidney disease, or unspecified chronic kidney disease; N18.9 Chronic kidney disease, unspecified; F12.90 Cannabis use, unspecified, uncomplicated; Z90.49 Acquired absence of other specified parts of digestive tract; Z90.710 Acquired absence of both cervix and uterus; Z88.1 Allergy status to other antibiotic agents; Z79.899 Other long term (current) drug therapy; Z79.1 Long term (current) use of non-steroidal anti-inflammatories (NSAID); Z79.891 Long term (current) use of opiate analgesic
CPT/HCPCS: 36415; 74176; 80053; 83605; 83690; 84484; 85025; 85610; 85730

== ENCOUNTER 2023-11-23 17:11 | Emergency (ER) | payer OTHER, MEDICAID ==
[~2023-11-23] VITALS: Ht 152.4 cm; Wt 68.0 kg
[2023-11-23] MEDS: ALPRAZolam 0.25 MG TAB PO ONE (17:30)
[2023-11-23] MEDS: MECLIZINE HCL 25 MG TAB PO ONE (17:30)
[2023-11-23] MEDS: ONDANSETRON ODT 4 MG TAB PO ONE (17:30)
[2023-11-23 17:59] LABS: Basophils # (auto) 0.1 10 ^3/uL (0-0.2); Basophils % (auto) 1.1 % (0.0-2.0); Eosinophils # (auto) 0.1 10 ^3/uL (0-0.8); Eosinophils % (auto) 1.9 % (0.0-7.0); Hematocrit 42.1 % (36.0-46.0); Hemoglobin 14.1 g/dL (12.2-16.2); Lymphocytes % (auto) 15.1 % (10.0-50.0); Mean Corpuscular Hemoglobin 27.5 pg (28.0-32.0); Mean Corpuscular Hgb Conc. 33.5 g/dL (32.0-36.0); Monocytes # (auto) 0.4 10 ^3/uL (0-1.3); Neutrophils # (auto) 5.2 10 ^3/uL (1.6-8.6); Neutrophils % (auto) 75.9 % (37.0-80.0); Nucleated Red Blood Cells % 0.1 %; Red Blood Cells 5.13 10^6/uL (4.0-5.20); Red Cell Distribution Width 15.6 % (11.8-14.3); White Blood Cell 6.9 10^3/uL (4.4-10.8)
[2023-11-23 18:19] VITALS: PULSE 70; RESP 19; O2SAT 95
[2023-11-23 18:19] LABS: Alanine Aminotransferase 23 U/L (7-40); Albumin 4.6 g/dL (3.2-4.8); Alkaline Phosphatase 128 U/L (46-116); Anion Gap 10 (5-15); Aspartate Aminotransferase 16 U/L (13-40); BUN/Creatinine Ratio 12.2 (10.0-20.0); Bilirubin, Total 1.2 mg/dL (0.2-1.0); Blood Urea Nitrogen 18 mg/dL (9-23); Carbon Dioxide 25 mmol/L (20-30); Chloride 108 mmol/L (98-107); Glucose 93 mg/dL (74-106); Potassium 3.6 mmol/L (3.5-5.1); Sodium 143 mmol/L (136-145); Total Protein 6.9 g/dL (5.7-8.2)
[2023-11-23 21:18] VITALS: BP 122/67; PULSE 70; RESP 16; TEMP 97.8; O2SAT 95
== END 2023-11-23 21:24 | disposition home or self-care (01) ==
LOC: EDBD 17:11 → ER 17:17
DX: R42 Dizziness and giddiness (principal); I12.9 Hypertensive chronic kidney disease with stage 1 through stage 4 chronic kidney disease, or unspecified chronic kidney disease; N18.9 Chronic kidney disease, unspecified; J45.909 Unspecified asthma, uncomplicated; E78.5 Hyperlipidemia, unspecified; F41.9 Anxiety disorder, unspecified; F32.9 Major depressive disorder, single episode, unspecified; F15.90 Other stimulant use, unspecified, uncomplicated; Z71.1 Person with feared health complaint in whom no diagnosis is made; Z98.890 Other specified postprocedural states; Z88.2 Allergy status to sulfonamides; Z79.899 Other long term (current) drug therapy
CPT/HCPCS: 36415; 71045; 80053; 84484; 85025; 93005; 99285; J8597; Q0162

== ENCOUNTER 2023-12-18 00:38 | Inpatient (IN) | payer OTHER, MEDICAID ==
[~2023-12-18] VITALS: Ht 149.9 cm; Wt 63.6 kg
[2023-12-18] MEDS: ONDANSETRON HCL 4 MG/2 ML VIAL IV ONE (01:40)
[2023-12-18] MEDS: KETOROLAC TROMETH 30 MG/ML 1ML VIAL IV ONE (01:45)
[2023-12-18] MEDS: SODIUM CHLORIDE 0.9% 1,000 ML IV ONE ×2 (01:46→15:32)
[2023-12-18 01:56] LABS: Basophils # (auto) 0.1 10 ^3/uL (0-0.2); Basophils % (auto) 1.4 % (0.0-2.0); Eosinophils # (auto) 0.2 10 ^3/uL (0-0.8); Eosinophils % (auto) 2.7 % (0.0-7.0); Hematocrit 39.6 % (36.0-46.0); Hemoglobin 13.5 g/dL (12.2-16.2); Lymphocytes % (auto) 14.7 % (10.0-50.0); Mean Corpuscular Hemoglobin 28.1 pg (28.0-32.0); Mean Corpuscular Volume 82.7 fL (80.0-100.0); Monocytes # (auto) 0.6 10 ^3/uL (0-1.3); Monocytes % (auto) 8.6 % (0.0-12.0); Neutrophils # (auto) 4.8 10 ^3/uL (1.6-8.6); Neutrophils % (auto) 72.6 % (37.0-80.0); Nucleated Red Blood Cells % 0.1 %; Platelet Count (auto) 187 10^3/uL (140-450); Red Blood Cells 4.79 10^6/uL (4.0-5.20); Red Cell Distribution Width 15.1 % (11.8-14.3); White Blood Cell 6.6 10^3/uL (4.4-10.8)
[2023-12-18 02:12] LABS: Chloride 108 mmol/L (98-107); Potassium 3.2 mmol/L (3.5-5.1); Sodium 139 mmol/L (136-145)
[2023-12-18 02:13] LABS: Anion Gap 7 (5-15); Calcium 9.9 mg/dL (8.7-10.4); Carbon Dioxide 24 mmol/L (20-30)
[2023-12-18 02:18] LABS: BUN/Creatinine Ratio 13.4 (10.0-20.0); Blood Urea Nitrogen 15 mg/dL (9-23); Glucose 118 mg/dL (74-106)
[2023-12-18] MEDS ORDERED: TEMAZEPAM 15 MG CAP PO PRN (06:15)
[2023-12-18] MEDS ORDERED: DOCUSATE SOD 100 MG CAP PO PRN (06:15)
[2023-12-18] MEDS ORDERED: MORPHINE SULFATE INJ 2 MG/ml SYRG IV PRN (06:15)
[2023-12-18] MEDS ORDERED: NITROGLYCERIN 0.4 MG SL TAB SL PRN (06:15)
[2023-12-18 09:22] VITALS: PULSE 80; RESP 18; O2SAT 98
[2023-12-18] MEDS: GABAPENTIN 300 MG CAP PO SCH (09:32)
[2023-12-18] MEDS: PANTOPRAZOLE 40 MG TAB PO SCH (09:33)
[2023-12-18] MEDS: LISINOPRIL 5 MG TAB PO SCH (09:33)
[2023-12-18] MEDS: ATORVASTATIN 20 MG TAB PO SCH (09:33)
[2023-12-18] MEDS: CITALOPRAM HYDROBR 20 MG TAB PO SCH (09:33)
[2023-12-18] MEDS: HYDROcodone-ACET 5/325MG TAB PO PRN (09:34)
[2023-12-18] MEDS ORDERED: ENOXAPARIN SOD 40 MG/0.4 ML SYRINGE SC SCH (10:00)
[2023-12-18] MEDS: ONDANSETRON HCL 4 MG/2 ML VIAL IV PRN (12:01)
[2023-12-18] MEDS: MORPHINE SULFATE INJ 2 MG/ml SYRG IV PRN (12:02)
[2023-12-18 13:43] LABS: Urine Bacteria None Seen /hpf (None Seen)
[2023-12-18 14:10] LABS: Urine Blood Negative /uL (Negative); Urine Clarity Clear (Clear); Urine Color Colorless (Yellow); Urine Protein, UAD Negative (Negative); Urine Specific Gravity 1.006 (1.001-1.035); Urine Urobilinogen Normal (Negative); Urine WBC 6 /hpf (0 - 5); Urine pH 5.5 (5.0-9.0)
[2023-12-18 14:17] LABS: Amphetamine Screen, Urine Neg (NEGATIVE); Barbiturate Scree,Urine Neg (NEGATIVE); Benzodiazephine Screen, Urine Neg (NEGATIVE)
[2023-12-18 14:18] LABS: Cannabinoid Screen, Urine Neg (NEGATIVE); Cocaine Screen, Urine Neg (NEGATIVE); Opiate Scree,Urine Neg (NEGATIVE); Phencyclidine Screen, Urine Neg (NEGATIVE)
[2023-12-18] MEDS: APIXABAN 5 MG TAB PO SCH (15:46)
[2023-12-18] MEDS: POTASSIUM CHL 20 Meq TABLET PO ONE (15:46)
[2023-12-18] MEDS: ACETAMINOPHEN 325 MG TAB PO PRN (16:21)
[2023-12-18 19:30] VITALS: PULSE 63; RESP 15; O2SAT 93
[2023-12-18] MEDS: NOREPINEPHRINE 8 MG/250ML KIT 250 ML IV SCH (20:49)
[2023-12-18] MEDS: MONTELUKAST SODIUM 10 MG TAB PO SCH (22:32)
[2023-12-19 01:05] VITALS: PULSE 63; RESP 15; O2SAT 93
[2023-12-19 06:38] LABS: Alanine Aminotransferase 24 U/L (7-40); Albumin 4.1 g/dL (3.2-4.8); Alkaline Phosphatase 116 U/L (46-116); Anion Gap 9 (5-15); Aspartate Aminotransferase 27 U/L (13-40); BUN/Creatinine Ratio 15.7 (10.0-20.0); Bilirubin, Total 1.1 mg/dL (0.2-1.0); Blood Urea Nitrogen 20 mg/dL (9-23); Calcium 9.9 mg/dL (8.7-10.4); Carbon Dioxide 23 mmol/L (20-30); Chloride 108 mmol/L (98-107); Glucose 119 mg/dL (74-106); Potassium 4.1 mmol/L (3.5-5.1); Sodium 140 mmol/L (136-145); Total Protein 6.4 g/dL (5.7-8.2)
[2023-12-19 07:20] VITALS: PULSE 77; RESP 15; O2SAT 98
[2023-12-19 08:09] LABS: Basophils # (auto) 0.1 10 ^3/uL (0-0.2); Basophils % (auto) 0.9 % (0.0-2.0); Eosinophils # (auto) 0.3 10 ^3/uL (0-0.8); Eosinophils % (auto) 3.1 % (0.0-7.0); Hematocrit 40.2 % (36.0-46.0); Hemoglobin 13.8 g/dL (12.2-16.2); Lymphocytes % (auto) 11.2 % (10.0-50.0); Mean Corpuscular Hemoglobin 28.4 pg (28.0-32.0); Mean Corpuscular Hgb Conc. 34.2 g/dL (32.0-36.0); Mean Corpuscular Volume 82.9 fL (80.0-100.0); Monocytes # (auto) 0.6 10 ^3/uL (0-1.3); Neutrophils # (auto) 6.9 10 ^3/uL (1.6-8.6); Neutrophils % (auto) 77.8 % (37.0-80.0); Platelet Count (auto) 212 10^3/uL (140-450); Red Blood Cells 4.85 10^6/uL (4.0-5.20); Red Cell Distribution Width 15.3 % (11.8-14.3); White Blood Cell 8.9 10^3/uL (4.4-10.8)
[2023-12-19] MEDS: MIDODRINE HCL 10 MG TAB PO SCH (16:21)
[2023-12-19] MEDS: ALBUMIN 25% 50 ML IV SCH (16:22)
[2023-12-19 19:30] VITALS: PULSE 79; RESP 15; TEMP 97.9; O2SAT 94
[2023-12-20 07:25] VITALS: PULSE 56; RESP 14; O2SAT 95
[2023-12-20] MEDS ORDERED: AZIT-43 PO (11:09)
[2023-12-20] MEDS ORDERED: MID10T PO (11:09)
[2023-12-20 12:00] VITALS: O2SAT 94
[2023-12-20 12:05] VITALS: BP 105/49; PULSE 60; RESP 16
== END 2023-12-20 13:12 | disposition left against medical advice (07) | DRG 190 ==
LOC: EDUNIT# 00:38 → EDBD 00:38 → ER 00:38 → TELE 06:10
PROVIDERS: ADMIT Nurse Practitioner; ATTEND Nurse Practitioner
DX: J44.1 Chronic obstructive pulmonary disease with (acute) exacerbation (principal); N17.0 Acute kidney failure with tubular necrosis; I95.9 Hypotension, unspecified; J06.9 Acute upper respiratory infection, unspecified; I12.9 Hypertensive chronic kidney disease with stage 1 through stage 4 chronic kidney disease, or unspecified chronic kidney disease; Z53.29 Procedure and treatment not carried out because of patient's decision for other reasons; E78.5 Hyperlipidemia, unspecified; J45.909 Unspecified asthma, uncomplicated; E66.01 Morbid (severe) obesity due to excess calories; N18.9 Chronic kidney disease, unspecified; G62.9 Polyneuropathy, unspecified; Z80.1 Family history of malignant neoplasm of trachea, bronchus and lung; Z79.899 Other long term (current) drug therapy; Z79.01 Long term (current) use of anticoagulants; Z90.710 Acquired absence of both cervix and uterus; Z86.718 Personal history of other venous thrombosis and embolism; Z87.19 Personal history of other diseases of the digestive system; Z87.440 Personal history of urinary (tract) infections; Z68.28 Body mass index [BMI] 28.0-28.9, adult
CPT/HCPCS: 36415; 70450; 71045; 80048; 80053; 80307; 81001; 84443; 84484; 85025; 85379; 93005; 93886; 96361; 96374; 96375; 96376; G0378; J1885; J2405

== ENCOUNTER 2023-12-28 07:58 | Day surgery (SDC) | payer OTHER, MEDICAID ==
[2023-12-21 11:26] LABS: Basophils # (auto) 0.1 10 ^3/uL (0-0.2); Basophils % (auto) 0.9 % (0.0-2.0); Eosinophils # (auto) 0.1 10 ^3/uL (0-0.8); Eosinophils % (auto) 1.7 % (0.0-7.0); Hemoglobin 13.2 g/dL (12.2-16.2); Lymphocytes # (auto) 0.9 10 ^3/uL (0.4-5.4); Lymphocytes % (auto) 11.9 % (10.0-50.0); Mean Corpuscular Hgb Conc. 33.9 g/dL (32.0-36.0); Mean Corpuscular Volume 82.6 fL (80.0-100.0); Monocytes # (auto) 0.4 10 ^3/uL (0-1.3); Monocytes % (auto) 5.3 % (0.0-12.0); Neutrophils # (auto) 5.9 10 ^3/uL (1.6-8.6); Neutrophils % (auto) 80.2 % (37.0-80.0); Nucleated Red Blood Cells % 0.1 %; Platelet Count (auto) 174 10^3/uL (140-450); Red Blood Cells 4.72 10^6/uL (4.0-5.20); Red Cell Distribution Width 15.3 % (11.8-14.3); White Blood Cell 7.3 10^3/uL (4.4-10.8)
[2023-12-21 11:40] LABS: INR 1.04 (0.9-1.15); Partial Thromboplastin Time 27.6 SEC (24.5-34.5)
[2023-12-21 11:51] LABS: Alanine Aminotransferase 32 U/L (7-40); Alkaline Phosphatase 118 U/L (46-116); Anion Gap 7 (5-15); BUN/Creatinine Ratio 16.8 (10.0-20.0); Blood Urea Nitrogen 18 mg/dL (9-23); Calcium 10.6 mg/dL (8.7-10.4); Carbon Dioxide 32 mmol/L (20-30); Chloride 100 mmol/L (98-107); Glucose 90 mg/dL (74-106); Potassium 3.8 mmol/L (3.5-5.1); Sodium 139 mmol/L (136-145)
[2023-12-21 11:52] LABS: Albumin 5.1 g/dL (3.2-4.8); Aspartate Aminotransferase 31 U/L (13-40); Total Protein 7.7 g/dL (5.7-8.2)
[~2023-12-28] VITALS: Ht 149.9 cm; Wt 79.4 kg
[~2023-12-28 07:58] MED LIST changes: +AZIT-43 PO; +MID10T PO
[2023-12-28] MEDS ORDERED: LIDOCAINE HCL 2% TOP JELLY 5ML TOP ONE (08:35)
[2023-12-28] MEDS ORDERED: SODIUM CHLORIDE LOCK 10 ML ONE (09:39)
[2023-12-28 09:48] VITALS: O2SAT 98
[2023-12-28] MEDS: LIDOCAINE VISCOUS 2% 15ML UD ONE (10:05)
[2023-12-28] MEDS: diphenhdrAMINE HCL 50 MG/1 ML VL ONE (10:06)
[2023-12-28] MEDS: MIDAZOLAM HCL 5 MG/ML-1ML VIAL ONE (10:06)
[2023-12-28] MEDS: fentaNYL CITRATE 100 MCG/2 ML VL ONE (10:06)
[2023-12-28 10:20] VITALS: O2SAT 100
[2023-12-28 10:21] VITALS: TEMP 97.2
[2023-12-28 10:51] VITALS: BP 124/58; PULSE 74; RESP 20; O2SAT 97
== END 2023-12-28 11:13 | disposition home or self-care (01) ==
LOC: GI 07:58
PROVIDERS: ATTEND Internal Medicine Gastroenterology
DX: K21.00 Gastro-esophageal reflux disease with esophagitis, without bleeding (principal); R13.10 Dysphagia, unspecified; K44.9 Diaphragmatic hernia without obstruction or gangrene; K29.50 Unspecified chronic gastritis without bleeding; I12.9 Hypertensive chronic kidney disease with stage 1 through stage 4 chronic kidney disease, or unspecified chronic kidney disease; N18.9 Chronic kidney disease, unspecified; J45.909 Unspecified asthma, uncomplicated; F32.A Depression, unspecified; E66.9 Obesity, unspecified; Z96.653 Presence of artificial knee joint, bilateral; Z88.2 Allergy status to sulfonamides; Z79.899 Other long term (current) drug therapy
CPT/HCPCS: 36415; 43239; 43450; 80053; 85025; 85610; 85730; 88305; 88312; 88342; J1200; J2250; J3010; J7030; 99152

== ENCOUNTER 2024-01-25 17:41 | Emergency (ER) | payer OTHER, MEDICAID ==
[~2024-01-25] VITALS: Ht 149.9 cm; Wt 75.0 kg
[2024-01-25 18:03] VITALS: BP 122/67; PULSE 83; RESP 18; O2SAT 96
[2024-01-25 19:19] LABS: Basophils # (auto) 0.1 10 ^3/uL (0-0.2); Basophils % (auto) 1.1 % (0.0-2.0); Eosinophils # (auto) 0.1 10 ^3/uL (0-0.8); Eosinophils % (auto) 2.2 % (0.0-7.0); Hematocrit 41.6 % (36.0-46.0); Hemoglobin 13.8 g/dL (12.2-16.2); Lymphocytes % (auto) 17.2 % (10.0-50.0); Mean Corpuscular Hemoglobin 27.5 pg (28.0-32.0); Mean Corpuscular Hgb Conc. 33.2 g/dL (32.0-36.0); Mean Corpuscular Volume 82.7 fL (80.0-100.0); Monocytes # (auto) 0.4 10 ^3/uL (0-1.3); Monocytes % (auto) 7.1 % (0.0-12.0); Neutrophils # (auto) 4.4 10 ^3/uL (1.6-8.6); Neutrophils % (auto) 72.4 % (37.0-80.0); Platelet Count (auto) 186 10^3/uL (140-450); Red Blood Cells 5.03 10^6/uL (4.0-5.20); Red Cell Distribution Width 15.1 % (11.8-14.3); White Blood Cell 6.1 10^3/uL (4.4-10.8)
[2024-01-25 19:40] LABS: Chloride 110 mmol/L (98-107); Potassium 3.2 mmol/L (3.5-5.1); Sodium 143 mmol/L (136-145)
[2024-01-25 19:41] LABS: Anion Gap 9 (5-15); Carbon Dioxide 24 mmol/L (20-31)
[2024-01-25 19:42] LABS: Calcium 10.2 mg/dL (8.7-10.4)
[2024-01-25 19:46] LABS: Glucose 95 mg/dL (74-106)
[2024-01-25 19:47] LABS: BUN/Creatinine Ratio 21.1 (10.0-20.0); Blood Urea Nitrogen 24 mg/dL (9-23)
[2024-01-25] MEDS ORDERED: ACET500T58 PO (23:14)
== END 2024-01-26 00:48 | disposition home or self-care (01) ==
LOC: EDBD 17:41 → ER 17:41
DX: B34.9 Viral infection, unspecified (principal); I12.9 Hypertensive chronic kidney disease with stage 1 through stage 4 chronic kidney disease, or unspecified chronic kidney disease; N18.9 Chronic kidney disease, unspecified; F41.9 Anxiety disorder, unspecified; F32.A Depression, unspecified; E78.5 Hyperlipidemia, unspecified; J45.909 Unspecified asthma, uncomplicated; F15.90 Other stimulant use, unspecified, uncomplicated; E66.9 Obesity, unspecified; Z68.33 Body mass index [BMI] 33.0-33.9, adult; Z90.49 Acquired absence of other specified parts of digestive tract; Z90.710 Acquired absence of both cervix and uterus; Z88.2 Allergy status to sulfonamides; Z79.899 Other long term (current) drug therapy
CPT/HCPCS: 36415; 80048; 84484; 85025; 85379; 93005

== ENCOUNTER 2024-02-12 18:21 | Emergency (ER) | payer MEDICAID ==
[~2024-02-12] VITALS: Ht 149.9 cm; Wt 72.7 kg
[~2024-02-12 18:21] MED LIST changes: +ACET500T58 PO
[2024-02-12 20:00] LABS: Basophils # (auto) 0.1 10 ^3/uL (0-0.2); Basophils % (auto) 0.6 % (0.0-2.0); Eosinophils # (auto) 0.1 10 ^3/uL (0-0.8); Eosinophils % (auto) 1.1 % (0.0-7.0); Hematocrit 45.4 % (36.0-46.0); Hemoglobin 14.9 g/dL (12.2-16.2); Lymphocytes # (auto) 0.9 10 ^3/uL (0.4-5.4); Lymphocytes % (auto) 10.4 % (10.0-50.0); Mean Corpuscular Hemoglobin 27.5 pg (28.0-32.0); Mean Corpuscular Hgb Conc. 32.9 g/dL (32.0-36.0); Mean Corpuscular Volume 83.7 fL (80.0-100.0); Monocytes # (auto) 0.5 10 ^3/uL (0-1.3); Monocytes % (auto) 5.4 % (0.0-12.0); Neutrophils # (auto) 7.4 10 ^3/uL (1.6-8.6); Neutrophils % (auto) 82.5 % (37.0-80.0); Nucleated Red Blood Cells % 0.1 %; Platelet Count (auto) 182 10^3/uL (140-450); Red Blood Cells 5.42 10^6/uL (4.0-5.20); Red Cell Distribution Width 15.5 % (11.8-14.3); White Blood Cell 8.9 10^3/uL (4.4-10.8)
[2024-02-12 20:11] LABS: Chloride 107 mmol/L (98-107); Potassium 3.5 mmol/L (3.5-5.1); Sodium 140 mmol/L (136-145)
[2024-02-12 20:12] LABS: Anion Gap 8 (5-15); Calcium 10.3 mg/dL (8.7-10.4); Carbon Dioxide 25 mmol/L (20-31)
[2024-02-12 20:17] LABS: BUN/Creatinine Ratio 24.4 (10.0-20.0); Blood Urea Nitrogen 29 mg/dL (9-23); Glucose 113 mg/dL (74-106)
[2024-02-12 20:18] LABS: Magnesium 1.7 mg/dL (1.6-2.6)
[2024-02-12 20:31] LABS: Urine Bacteria FEW /hpf (None Seen); Urine Blood Negative /uL (Negative); Urine Clarity Clear (Clear); Urine Color Yellow (Yellow); Urine Mucus FEW (None Seen); Urine Protein, UAD TRACE (Negative); Urine Specific Gravity 1.031 (1.001-1.035); Urine Urobilinogen 2 mg/dL (Negative); Urine WBC 19 /hpf (0 - 5)
[2024-02-12] MEDS ORDERED: LEVO500T91 PO (22:53)
[2024-02-12 23:03] VITALS: BP 146/80; PULSE 85; RESP 16; TEMP 98.1; O2SAT 96
== END 2024-02-12 23:23 | disposition home or self-care (01) ==
LOC: EDBD 18:21 → ER 18:21
DX: R25.1 Tremor, unspecified (principal); N39.0 Urinary tract infection, site not specified; E78.5 Hyperlipidemia, unspecified; I12.9 Hypertensive chronic kidney disease with stage 1 through stage 4 chronic kidney disease, or unspecified chronic kidney disease; N18.9 Chronic kidney disease, unspecified; J45.909 Unspecified asthma, uncomplicated; Z88.2 Allergy status to sulfonamides; Z79.899 Other long term (current) drug therapy; Z90.49 Acquired absence of other specified parts of digestive tract; Z90.89 Acquired absence of other organs; Z90.710 Acquired absence of both cervix and uterus
CPT/HCPCS: 36415; 80048; 81001; 83735; 83880; 84484; 85025

== ENCOUNTER 2024-03-03 23:06 | Inpatient (IN) | payer MEDICAID ==
[~2024-03-03] VITALS: Ht 149.9 cm; Wt 72.7 kg
[~2024-03-03 23:06] MED LIST changes: +LEVO500T91 PO
[2024-03-04 00:23] LABS: Basophils # (auto) 0.1 10 ^3/uL (0-0.2); Basophils % (auto) 0.7 % (0.0-2.0); Eosinophils # (auto) 0.1 10 ^3/uL (0-0.8); Eosinophils % (auto) 1.4 % (0.0-7.0); Hematocrit 40.2 % (36.0-46.0); Hemoglobin 13.5 g/dL (12.2-16.2); Lymphocytes # (auto) 1.1 10 ^3/uL (0.4-5.4); Lymphocytes % (auto) 15.3 % (10.0-50.0); Mean Corpuscular Hemoglobin 27.5 pg (28.0-32.0); Mean Corpuscular Hgb Conc. 33.6 g/dL (32.0-36.0); Mean Corpuscular Volume 81.9 fL (80.0-100.0); Monocytes # (auto) 0.5 10 ^3/uL (0-1.3); Neutrophils # (auto) 5.3 10 ^3/uL (1.6-8.6); Neutrophils % (auto) 75.6 % (37.0-80.0); Platelet Count (auto) 276 10^3/uL (140-450); Red Cell Distribution Width 14.9 % (11.8-14.3)
[2024-03-04 00:40] LABS: Alanine Aminotransferase 14 U/L (7-40); Albumin 4.7 g/dL (3.2-4.8); Alkaline Phosphatase 116 U/L (46-116); Anion Gap 9 (5-15); Aspartate Aminotransferase 13 U/L (13-40); Bilirubin, Total 0.8 mg/dL (0.2-1.0); Blood Urea Nitrogen 12 mg/dL (9-23); Calcium 10.2 mg/dL (8.7-10.4); Carbon Dioxide 25 mmol/L (20-31); Chloride 105 mmol/L (98-107); Glucose 101 mg/dL (74-106); Sodium 139 mmol/L (136-145); Total Protein 7.5 g/dL (5.7-8.2)
--- NOTE | 2024-03-04 01:29 | DVH ---
CHEST RADIOGRAPH Indication: CP Technique: Single frontal view of the chest was obtained COMPARISON: XY CHEST PORTABLE on DOS: 12/18/23, XY CHEST XRAY 1 VIEW on DOS: 11/23/23, XY CHEST PORTABLE on DOS: 09/02/23, XY CHEST PORTABLE on DOS: 06/02/23, XY CHEST PORTABLE on DOS: 05/07/23 FINDINGS: Lines and Tubes: None Lungs: Trace bibasilar opacities may reflect atelectasis or mild pneumonia. Pleura: No effusion. No pneumothorax. Cardiomediastinal contours: Unremarkable Bones: Unremarkable IMPRESSION: 1. Trace bibasilar opacities may reflect atelectasis or mild pneumonia.
--- NOTE | 2024-03-04 02:06 | ED.PDOC ---
History of Present Illness HPI Comments 64 y/o F, with a Hx of anxiety, asthma, CKF, depression, HLD, HTN, UTI's, and marijuana use, is BIBA for c/o non-radiating, constant and substernal chest pain, shortness of breath, productive cough, nausea, vomiting, and fever since 2049, yesterday. She denies any diaphoresis or worsening edema. She states her current symptoms are different than symptoms she usually experiences when having exacerbations of asthma. Chief Complaint: Chest Pain Time Seen by MD: 00:50 Primary Care Provider: ISRAEL Reviewed Notes: Nurses Notes, Medications, Allergies Allergies: Coded Allergies: Sulfa Antibiotics (Verified Allergy, Unknown, 09/16/23) Home Meds Active Scripts Levofloxacin Hemihydrate (LEVAQUIN 500 MG) 500 Mg Tab, 500 MG PO DAILY for 7 Days, #7 TAB Prov:TRINO DURBIN MD 02/12/24 Acetaminophen (Acetaminophen) 500 Mg Tab, 500 MG PO Q4HP PRN, #30 TAB Prov:JANE BYRNE PAC 01/25/24 Midodrine HCl (Midodrine HCl) 10 Mg Tab, 10 MG PO TID for 14 Days, #42 TAB Prov:RAJ MILLIGAN MIRROR INSTALLER 12/20/23 Azithromycin (Azithromycin) 250 Mg Tab, 250 MG PO DAILY MDD 500 for 5 Days, #6 TAB 0 Refills 2 TABLETS ORALLY ON DAY ONE, THEN 1 TABLET ORALLY DAILY FOR 4 DAYS Prov:RAJ MILLIGAN MIRR[employer] INSTALLER 12/20/23 Pantoprazole Sodium Sesquihydr (Protonix) 40 Mg Tab, 40 MG PO DAILY for 30 Days, #30 TAB Prov:JOSE MULLINS DO 01/29/23 Reported Medications Valbenazine Tosylate (Ingrezza) 80 Mg Cap, 80 MG PO QPM, CAP 06/08/22 Atorvastatin Calcium (ATORVASTATIN CALCIUM) 40 Mg Tab, 1 TAB PO DAILY, #30 TAB 5 Refills 06/08/22 Ferrous Sulfate (Ferrous Sulfate) 325 Mg Tab, 325 MG PO TIDWM for 30 Days 06/08/22 Apixaban Base (ELIQUIS) 5 Mg Tab, 5 MG PO BID, TAB 06/08/22 Hydrochlorothiazide (Hydrochlorothiazide) 25 Mg Tab, 25 MG PO QAM for 30 Days, MG 06/08/22 Gabapentin (Gabapentin) 300 Mg Cap, 300 MG PO BID for 30 Days, MG 06/08/22 Oxycodone W/ Acetaminophen (Percocet 5/325MG) 1 Tab Tb, 1 TAB PO DAILY, TAB 09/17/20 Diclofenac Sodium (Topical) (Diclofenac Sodium) 1 % Gel, 1 % TD PRN, GEL 03/12/19 Fluticasone-Salmeterol (Advair Hfa 115-21 Mcg/Act) 1 Aer Aer, 1 AER IN PRN, AER 03/12/19 Albuterol Sulfate (Albuterol Sulfate Hfa) 108 Mcg/Act Aer, 108 MCG IN PRN, AER 03/12/19 Escitalopram Oxalate (ESCITALOPRAM OXALATE) 20 Mg Tab, 1 TAB PO DAILY, #30 TAB 5 Refills 03/12/19 Pramipexole Dihydrochloride (Pramipexole Dihydrochlori) 4.5 Mg Tab, 4.5 MG PO DAILY, TAB 03/12/19 Lisinopril (Lisinopril) 5 Mg Tab, 5 MG PO DAILY for 30 Days, MG 03/12/19 Trazodone Hcl (Trazodone Hcl) 100 Mg Tab, 100 MG PO HS, MG 03/12/19 Montelukast Sodium (MONTELUKAST SODIUM) 10 Mg Tab, 1 TAB PO HS, #30 TAB 5 Refills 03/12/19 Mode of Arrival: EMS Past Medical History PAST MEDICAL HISTORY: Anxiety, Arthritis (osteoarthritis ), Asthma, CKF, Depression, High Lipids, HTN, UTI'S Surgical History: Appendectomy, Hysterectomy, Tubal Ligation Surgical History (Other): bilateral knee replacement Sx, carpal tunnel Sx MANAGER FORMS History: No Pertinent MANAGER FORMS History Family History Family History: Unknown Social History Smoker: Non-Smoker Alcohol: Denies ETOH Use Drugs: Marijuana Lives In: Home Constitutional: reports: fever; denies: chills, diaphoresis, fatigue, malaise, sweats, weakness, others EENTM: denies: blurred vision, double vision, ear bleeding, ear discharge, ear drainage, ear pain, ear ringing, eye pain, eye redness, hearing loss, mouth pain, mouth swelling, nasal discharge, nose bleeding, nose congestion, nose pain, photophobia, tearing, throat pain, throat swelling, voice changes, others Respiratory: reports: cough, shortness of breath; denies: hemoptysis, orthopnea, SOB at rest, SOB with excertion, stridor, wheezing, others Cardiovascular: reports: chest pain; denies: dizzy spells, diaphoresis, Dyspnea on exertion, edema, irregular heart beat, left arm pain, lightheadedness, palpitations, PND, syncope, others Gastrointestinal: reports: nausea, vomiting; denies: abdomen distended, abdominal pain, blood streaked bowels, constipated, diarrhea, dysphagia, difficulty swallowing, hematemesis, melena, poor appetite, poor fluid intake, rectal bleeding, rectal pain, others Genitourinary: denies: abnormal vagina bleeding, burning, dyspareunia, dysuria, flank pain, frequency, hematuria, incontinence, pain, , vagina discharge, urgency, others Neurological: denies: dizziness, fainting, headache, left sided numbness, left sided weakness, numbness, paresthesia, pre-existing deficit, right sided numbness, right sided weakness, seizure, speech problems, tingling, tremors, weakness, others Musculoskeletal: denies: back pain, gout, joint pain, joint swelling, muscle pain, muscle stiffness, neck pain, others Integumetry: denies: bruises, change in color, change in hair/nails, dryness, laceration, lesions, lumps, rash, wounds, others Allergic/Immunocompromised: denies: Difficulty Healing, Frequent Infections, Hives, Itching, others Hematologic/Lymphatic: denies: anemia, blood clots, easy bleeding, easy bruisin g, swollen glands, others Endocrine: denies: excessive hunger, excessive sweating, excessive thirst, excessive urination, flushing, intolerance to cold, intolerance to heat, unexplained weight gain, unexplained weight loss, others Psychiatric: denies: anxiety, bipolar disorder, depression, hopeless, panic disorder, schizophrenia, sleepless, suicidal, others All Other Systems: Reviewed and Negative Physical Exam General Appearance: No Apparent Distress HEENT: Normal ENT Inspection Neck: Full Range of Motion, Normal Inspection Respiratory: Decreased Breath Sounds, No Accessory Muscle Use, No Respiratory Distress Cardiovascular: No Edema, No JVD, Regular Rate/Rhythm Breast Exam: Deferred Gastrointestinal: Non Tender, Soft Genitalia: Deferred Pelvic: Deferred Rectal: Deferred Extremities: No calf tenderness, Normal inspection, Normal range of motion, Non-tender, No pedal edema Neurologic: Alert, No Motor Deficits, Normal Affect, Normal Mood, No Sensory Deficits Cerebellar Function: NOT DONE Reflexes: NOT DONE Skin: Dry, Normal Color, Warm Lymphatic: NOT DONE Was a procedure done? Was a procedure done?: No EKG EKG : Comments Sinus rhythm, rate 77, normal intervals, left axis deviation, possible old inferior infarct, nonspecific T change. Differential Dx Considerations may include: [place], ACS, PE, PNA, asthma, costochondritis, pericarditis, gastritis, gastroenteritis, viral syndrome, musculoskeletal pain , among others X-Ray, Labs, Meds, VS Vital Signs Date Time Temp Pulse Resp B/P (MAP) Pulse Ox O2 Delivery O2 Flow Rate FiO2 03/04/24 02:25 76 14 114/73 (87) 96 03/04/24 02:25 76 14 96 Room Air* 0 21 03/03/24 23:21 97.4 86 20 113/75 (88) 96 03/03/24 23:13 77 Lab Test 03/04/24 02:02 03/04/24 00:06 Range/Units Troponin I High Sensitivity < 3 L < 3 L </=34 ng/L White Blood Count 7.0 4.4-10.8 10^3/uL Red Blood Count 4.90 4.0-5.20 10^6/uL Hemoglobin 13.5 12.2-16.2 g/dL Hematocrit 40.2 36.0-46.0 % Mean Corpuscular Volume 81.9 80.0-100.0 fL Mean Corpuscular Hemoglobin 27.5 L 28.0-32.0 pg Mean Corpuscular Hemoglobin Concent 33.6 32.0-36.0 g/dL Red Cell Distribution Width 14.9 H 11.8-14.3 % Platelet Count 276 140-450 10^3/uL Mean Platelet Volume 8.0 6.9-10.8 fL Neutrophils (%) (Auto) 75.6 37.0-80.0 % Lymphocytes (%) (Auto) 15.3 10.0-50.0 % Monocytes (%) (Auto) 7.0 0.0-12.0 % Eosinophils (%) (Auto) 1.4 0.0-7.0 % Basophils (%) (Auto) 0.7 0.0-2.0 % Neutrophils # (Auto) 5.3 1.6-8.6 10 ^3/uL Lymphocytes # (Auto) 1.1 0.4-5.4 10 ^3/uL Monocytes # (Auto) 0.5 0-1.3 10 ^3/uL Eosinophils # (Auto) 0.1 0-0.8 10 ^3/uL Basophils # (Auto) 0.1 0-0.2 10 ^3/uL Nucleated Red Blood Cells 0.0 % Sodium Level 139 136-145 mmol/L Potassium Level 3.0 L 3.5-5.1 mmol/L Chloride Level 105 98-107 mmol/L Carbon Dioxide Level 25 20-31 mmol/L Anion Gap 9 5-15 Blood Urea Nitrogen 12 9-23 mg/dL Creatinine 0.92 0.550-1.02 mg/dL Glomerular Filtration Rate Calc 70 >90 mL/min BUN/Creatinine Ratio 13.0 10.0-20.0 Serum Glucose 101 74-106 mg/dL Calcium Level 10.2 8.7-10.4 mg/dL Total Bilirubin 0.8 0.2-1.0 mg/dL Aspartate Amino Transferase (AST) 13 13-40 U/L Alanine Aminotransferase (ALT) 14 7-40 U/L Alkaline Phosphatase 116 46-116 U/L B-Type Natriuretic Peptide 22.25 0-100 pg/mL Total Protein 7.5 5.7-8.2 g/dL Albumin 4.7 3.2-4.8 g/dL Current Medications Medications (Trade) Dose Ordered Sig/Nara Route Start Time Stop Time Status Last Admin Aspirin 325 mg ONCE ONCE PO 03/04/24 01:00 03/04/24 01:01 DC 03/04/24 02:37 [place] [address] Ph: [phone] DIAGNOSTIC IMAGING Diagnostic Imaging Report : [id number] Signed PATIENT: DAVID ARCHIBALD ACCT: [id number] UNIT: [id number] : 1960 LOC: ER ROOM / BED: / AGE / SEX: 64 / F ADM STATUS: REG ER SERVICE 3350 ORDERING PHYSICIAN: LY GOMEZ MD PROCEDURE(s): CXRP - CHEST PORTABLE REASON: CP ORDER NUMBER(s): [id number], ACCESSION NUMBER(s): [id number] CHEST RADIOGRAPH Indication: CP Technique: Single frontal view of the chest was obtained COMPARISON: XY CHEST PORTABLE on DOS: 12/18/23, XY CHEST XRAY 1 VIEW on DOS: 11/23/23, XY CHEST PORTABLE on DOS: 09/02/23, XY CHEST PORTABLE on DOS: 06/02/23, XY CHEST PORTABLE on DOS: 05/07/23 FINDINGS: Lines and Tubes: None Lungs: Trace bibasilar opacities may reflect atelectasis or mild pneumonia. Pleura: No effusion. No pneumothorax. Cardiomediastinal contours: Unremarkable Bones: Unremarkable IMPRESSION: 1. Trace bibasilar opacities may reflect atelectasis or mild pneumonia. ATED BY: TERESO DUARTE MD DICTATED DATE/TIME: 03/04/24126 SIGNED BY: TERESO DUARTE MD SIGNED DATE/TIME: 03/04/24126 CC: X-Ray, Labs, Meds, VS Comment 64 y/o F with Hx of anxiety, asthma, CKF, depression, HLD, HTN, UTI's and marijuana use complaining of chest pain, productive cough and shortness breath Vitals unremarkable Exam remarkable for diminished breath sounds at the bases EKG sinus rhythm, nonspecific T changes Chest x-ray: IMPRESSION: 1. Trace bibasilar opacities may reflect atelectasis or mild pneumonia. CBC, basic metabolic panel remarkable for potassium 3, no other abnormalities of acute significance BNP and serial troponins negative Patient treated with the following in the ED: Aspirin 325 mg p.o., nitro bid 1/2 in to chest wall, Rocephin 1 g IV, Zithromax 500 mg IV, KCl 50 mEq p.o. On re-evaluation, patient states pain has improved, vitals are stable. Oxygen saturation normal on room air. No respiratory distress. Plan is to admit the patient for IV antibiotics and Cardiology evaluation. Time of 1ST Reevaluation: 01:20 Reevaluation 1ST: Unchanged Patient Education/Counseling: Diagnosis, Treatment Family Education/Counseling: No Family Present Departure 1 Departure Time of Disposition: 03:38 Impression: Primary Impression: Acute chest pain Additional Impressions: Pneumonia Qualified Codes: J18.9 - Pneumonia, unspecified organism Hypokalemia Disposition: ADMITTED INPATIENT Admit to: Tele Condition: Guarded Critical Care Note Critical Care Time?: No Stability Stability form required: No Heart Score Heart Score: Heart Score Response (Comments) Value History Slightly Suspicious 0 EKG Repolarization Disturb 1 Age 45-64 1 Risk Factors >3 or Hx ASHD 2 Troponin Normal limit 0 Total 4 I personally scribed for LY GOMEZ MD ([email or web address]) on 03/04/24 at 02:06. Electronically submitted by Stveen Parada ([email or web address]). I personally scribed for LY GOMEZ MD ([email or web address]) on 03/04/24 at 02:07. Electronically submitted by Steven Parada ([email or web address]). LY GOMEZ MD Mar 04, 2024 02:06
[2024-03-04 02:25] VITALS: PULSE 76; RESP 14; O2SAT 96
[2024-03-04] MEDS: ASPirin 325 MG TAB PO ONE (02:37)
[2024-03-04] MEDS: NITROGLYCERIN 2% OINT 1GM PKG TD ONE (02:37)
[2024-03-04 04:23] VITALS: PULSE 73; RESP 16; O2SAT 97
[2024-03-04] MEDS: cefTRIAXone 1GM/50ML D5W 50 ML IV ONE (04:27)
[2024-03-04] MEDS: POTASSIUM EFFERVESENT TAB 25 MEQ PO ONE (04:28)
[2024-03-04] MEDS ORDERED: ALBUTEROL SULF 2.5 MG/0.5ML(0.5%) NEB SOLN NEB PRN (04:30)
[2024-03-04] MEDS ORDERED: TEMAZEPAM 15 MG CAP PO PRN (04:30)
[2024-03-04] MEDS ORDERED: MORPHINE SULFATE INJ 2 MG/ml SYRG IV PRN (04:30)
[2024-03-04] MEDS ORDERED: NITROGLYCERIN 0.4 MG SL TAB SL PRN (04:30)
[2024-03-04] MEDS ORDERED: ACETAMINOPHEN 325 MG TAB PO PRN (04:30)
[2024-03-04 04:40] VITALS: BP 117/72; PULSE 81; RESP 16; TEMP 98.4; O2SAT 97
[2024-03-04] MEDS: AZITHROMYCIN 500MG/ 250ML 250 ML IV ONE (04:56)
[2024-03-04] MEDS: ONDANSETRON HCL 4 MG/2 ML VIAL IV PRN (05:14)
[2024-03-04] MEDS: HYDROcodone-ACET 5/325MG TAB PO PRN (05:40)
[2024-03-04 06:11] LABS: Urine Bacteria FEW /hpf (None Seen); Urine Blood Negative /uL (Negative); Urine Clarity Turbid (Clear); Urine Color Yellow (Yellow); Urine Mucus FEW (None Seen); Urine Protein, UAD 1+ (Negative); Urine Specific Gravity 1.024 (1.001-1.035); Urine Urobilinogen 2 mg/dL (Negative); Urine WBC 47 /hpf (0 - 5); Urine pH 6.5 (5.0-9.0)
--- NOTE | 2024-03-04 06:34 | ECG ---
[facility] Test Date: 2024-03-03 Test Time: 23:12:02 Pat Name: DAVID ARCHIBALD Department: ED Room: [address] [place] [address] A Gender: F Insecticide Mixer: SANG : 1960 Requested By: LY MADRID Order Number: [id number] Reading MD: Rajesh Loaiza Measurements Intervals [place] Rate: 77 P: 34 WI: 148 QRS: -3 QRSD: 83 T: 3 QT: 386 QTc: 437 Interpretive Statements Sinus rhythm Low voltage, precordial leads Abnormal R-wave progression, early transition Borderline T abnormalities, inferior leads Electronically Signed On 03-07-2024 17:18:00 PST by Rajesh Loaiza Please click the below link to view image of tracing.
--- NOTE | 2024-03-04 07:00 | DVHHP2 ---
History of Present Illness Reason for Visit: Shortness of breath History of Present Illness 64-year-old female presents for evaluation of shortness for breath. Patient reports a one day history of shortness for breath with a productive cough and substernal nonradiating chest pain. Denies fever or chills. No nausea or vomiting. No other acute complaints reported. Past Medical History Asthma, chronic kidney disease, anxiety, depression, dyslipidemia, hypertension Past Surgical History Hysterectomy, appendectomy, knee replacement Family History Noncontributory Smoke: No ALCOHOL: none Drugs: None, Marijuana Lives: with Family Review of Systems Review of Systems Review of systems are currently negative otherwise addressed in HPI Allergies: Coded Allergies: Sulfa Antibiotics (Verified Allergy, Unknown, 09/16/23) Medications Current Medications Medications Dose Ordered Sig/Nara Route Start Time Stop Time Status Last Admin Dose Admin Ceftriaxone Sodium 50 ml @ 100 mls/hr DAILY@0400 IV 03/05/24 04:00 Azithromycin 250 ml @ 125 mls/hr DAILY@0500 IV 03/05/24 05:00 Albuterol 2.5 mg Q6HPRN PRN NEB 03/04/24 04:30 Apixaban 5 mg BID PO 03/04/24 10:00 Atorvastatin Calcium 40 mg HS PO 03/04/24 22:00 Gabapentin 300 mg BID PO 03/04/24 10:00 Bupropion HCl 150 mg BID@07,19 PO 03/04/24 07:00 Furosemide 20 mg DAILY PO 03/04/24 10:00 Lisinopril 5 mg DAILY PO 03/04/24 10:00 Aspirin 81 mg DAILY PO 03/04/24 10:00 Acetaminophen/ Hydrocodone Bitart 1 tab Q4HP PRN PO 03/04/24 04:30 03/04/24 05:40 1 TAB Temazepam 15 mg QHSP PRN PO 03/04/24 04:30 Ondansetron HCl 4 mg Q4HP PRN IV 03/04/24 04:30 03/04/24 05:14 4 MG Acetaminophen 650 mg Q6HP PRN PO 03/04/24 04:30 Nitroglycerin 0.4 mg Q5MINP PRN SL 03/04/24 04:30 Morphine Sulfate 2 mg Q30M PRN IV 03/04/24 04:30 Exam Vital Signs Vital Signs Date Time Temp Pulse Resp B/P (MAP) Pulse Ox O2 Delivery O2 Flow Rate FiO2 03/04/24 04:40 98.4 81 16 117/72 97 2.0 28 98.4 03/04/24 04:23 Nasal Cannula* Exam Gen: 64-year-old female mild distress Skin: Warm, dry, normal color and texture, no rash. HEENT: Normocephalic atraumatic, mucous membranes moist and pink. Neck: Cervical and supraclavicular nodes normal without enlargement, trachea is midline, thyroid gland is normal without masses. Pulmonary: Bilateral wheeze Cardiac: Regular rate and rhythm. No murmur Abdomen: Soft, nontender, nondistended, bowel sounds present all 4 quadrants, no guarding, no rigidity, no organomegaly. Extremities: No cyanosis, clubbing, no edema Neuro: Cranial nerves II through XII grossly intact, normal affect and speech, no focal motor deficits. Labs/Xrays ORDERING PHYSICIAN: LY GOMEZ MD PROCEDURE(s): CXRP - CHEST PORTABLE REASON: CP ORDER NUMBER(s): [id number], ACCESSION NUMBER(s): [id number] CHEST RADIOGRAPH Indication: CP Technique: Single frontal view of the chest was obtained COMPARISON: XY CHEST PORTABLE on DOS: 12/18/23, XY CHEST XRAY 1 VIEW on DOS: 11/23/23, XY CHEST PORTABLE on DOS: 09/02/23, XY CHEST PORTABLE on DOS: 06/02/23, XY CHEST PORTABLE on DOS: 05/07/23 FINDINGS: Lines and Tubes: None Lungs: Trace bibasilar opacities may reflect atelectasis or mild pneumonia. Pleura: No effusion. No pneumothorax. Cardiomediastinal contours: Unremarkable Bones: Unremarkable IMPRESSION: 1. Trace bibasilar opacities may reflect atelectasis or mild pneumonia. Labs Test 03/04/24 05:17 03/04/24 04:01 03/04/24 02:02 03/04/24 00:06 Range/Units Urine Color Yellow Yellow Urine Clarity Turbid H Clear Urine pH 6.5 5.0-9.0 Urine Specific [place] 1.024 1.001-1.035 Urine Protein 1+ H Negative Urine Ketones Negative Negative Urine Blood Negative Negative /uL Urine Nitrite Negative Negative Urine Bilirubin Negative Negative Urine Urobilinogen 2 H Negative mg/dL Urine Leukocyte Esterase 3+ Negative /uL Urine RBC 4 0 - 4 /hpf Urine WBC 47 0 - 5 /hpf Urine Squamous Epithelial Cells Many <5 /hpf Urine Bacteria Few H None Seen /hpf Urine Mucus Few None Seen Urine Glucose Normal Normal mg/dL Lactic Acid Level 0.8 0.4-2.0 mmol/L Troponin I High Sensitivity < 3 L </=34 ng/L White Blood Count 7.0 4.4-10.8 10^3/uL Red Blood Count 4.90 4.0-5.20 10^6/uL Hemoglobin 13.5 12.2-16.2 g/dL Hematocrit 40.2 36.0-46.0 % Mean Corpuscular Volume 81.9 80.0-100.0 fL Mean Corpuscular Hemoglobin 27.5 L 28.0-32.0 pg Mean Corpuscular Hemoglobin Concent 33.6 32.0-36.0 g/dL Red Cell Distribution Width 14.9 H 11.8-14.3 % Platelet Count 276 140-450 10^3/uL Mean Platelet Volume 8.0 6.9-10.8 fL Neutrophils (%) (Auto) 75.6 37.0-80.0 % Lymphocytes (%) (Auto) 15.3 10.0-50.0 % Monocytes (%) (Auto) 7.0 0.0-12.0 % Eosinophils (%) (Auto) 1.4 0.0-7.0 % Basophils (%) (Auto) 0.7 0.0-2.0 % Neutrophils # (Auto) 5.3 1.6-8.6 10 ^3/uL Lymphocytes # (Auto) 1.1 0.4-5.4 10 ^3/uL Monocytes # (Auto) 0.5 0-1.3 10 ^3/uL Eosinophils # (Auto) 0.1 0-0.8 10 ^3/uL Basophils # (Auto) 0.1 0-0.2 10 ^3/uL Nucleated Red Blood Cells 0.0 % Sodium Level 139 136-145 mmol/L Potassium Level 3.0 L 3.5-5.1 mmol/L Chloride Level 105 98-107 mmol/L Carbon Dioxide Level 25 20-31 mmol/L Anion Gap 9 5-15 Blood Urea Nitrogen 12 9-23 mg/dL Creatinine 0.92 0.550-1.02 mg/dL Glomerular Filtration Rate Calc 70 >90 mL/min BUN/Creatinine Ratio 13.0 10.0-20.0 Serum Glucose 101 74-106 mg/dL Calcium Level 10.2 8.7-10.4 mg/dL Total Bilirubin 0.8 0.2-1.0 mg/dL Aspartate Amino Transferase (AST) 13 13-40 U/L Alanine Aminotransferase (ALT) 14 7-40 U/L Alkaline Phosphatase 116 46-116 U/L B-Type Natriuretic Peptide 22.25 0-100 pg/mL Total Protein 7.5 5.7-8.2 g/dL Albumin 4.7 3.2-4.8 g/dL Assessment/Plan Assessment/Plan Assessment Community-acquired pneumonia Asthma Chronic kidney disease Hypokalemia Hypertension Admit the patient to telemetry to the hospitalist Med nebnisreen Rocephin/azithromycin Resume home medications Continue treatment per. Plan discussed with: Patient My Orders Orders - DENISE MACHUCA Procedure Category Date Status Time Albuterol Medneb PHA 03/04/24 In Process (Ventolin Medneb) 04:30 Apixaban (Eliquis) PHA 03/04/24 In Process 10:00 Atorvastatin (Lipitor) PHA 03/04/24 In Process 22:00 Gabapentin Capsule PHA 03/04/24 In Process (Neurontin Capsule) 10:00 Bupropion Tablet PHA 03/04/24 In Process (Wellbutrin Tablet) 07:00 Furosemide Tablet PHA 03/04/24 In Process (Lasix Tablet) 10:00 Lisinopril Tablet PHA 03/04/24 In Process (Zestril Tablet) 10:00 Aspirin Tablet PHA 03/04/24 In Process 10:00 Admit ADMIT 03/04/24 Transmitted 04:30 Hydrocodone-Acet PHA 03/04/24 In Process 5/325mg Tab ([place] 04:30 Temazepam (Restoril) PHA 03/04/24 In Process 04:30 Ondansetron Hcl PHA 03/04/24 In Process (Zofran) 04:30 Complete Blood Count LAB 03/05/24 Verified 04:00 Comprehensive LAB 03/05/24 Verified Metabolic Panel 04:00 Cardiac DIET 03/04/24 Transmitted Diet-2gna,Lofat,Lochol Breakfast Condition: Stable [facility] 03/04/24 In Process 04:30 Acetaminophen Tablet PHA 03/04/24 In Process (Tylenol Tablet) 04:30 Bedrest With Bathroom [facility] 03/04/24 In Process Privileg 04:30 Nitroglycerin [facility] 03/04/24 In Process Sublingual (Ntrostat 04:30 Morphine Sulfate PHA 03/04/24 In Process Injection 04:30 Stat Ekg For Chest [facility] 03/04/24 In Process Pain 04:30 Notify Md Of Changes [facility] 03/04/24 In Process From Base 04:30 Meeting Specialist For [facility] 03/04/24 In Process 24 Hours 04:30 Emergency Dysrhythmia [facility] 03/04/24 In Process Protocol 04:30 Rhythm Strips Once [facility] 03/04/24 In Process Every Shift 04:30 Oxygen By Nasal RT 03/04/24 Transmitted Cannula 04:30 Azithromycin 500mg/ PHA 03/05/24 In Process 250ml (Zithromax 50 05:00 Ceftriaxone 1gm/50ml PHA 03/05/24 In Process D5w (Rocephin) 04:00 Date of Service: Mar 04, 2024 Billing Provider: DENISE MACHUCA Common Visit Codes: [id number] INP/OBS CARE (HIGH) DENISE MACHUCA Mar 04, 2024 07:00
[2024-03-04 07:35] VITALS: RESP 17
[2024-03-04] MEDS: buPROPion HCL 75 MG TAB PO SCH (08:12)
[2024-03-04 08:38] LABS: COVID19 ANTIGEN SOFIA FIA NEGATIVE (NEGATIVE)
[2024-03-04 08:39] LABS: Rapid Influenza A Negative (Negative); Rapid Influenza B Negative (Negative)
[2024-03-04] MEDS: FUROSEMIDE 20 MG TAB PO SCH (10:00)
[2024-03-04] MEDS: LISINOPRIL 5 MG TAB PO SCH (10:00)
[2024-03-04] MEDS: GABAPENTIN 300 MG CAP PO SCH (10:36)
[2024-03-04] MEDS: ASPirin 81 mg TAB PO SCH (10:36)
[2024-03-04] MEDS: APIXABAN 5 MG TAB PO SCH (10:36)
[2024-03-04 11:15] VITALS: O2SAT 94
--- NOTE | 2024-03-04 14:11 | DVHPN2 ---
Subjective Patient continues to report having generalized weakness, chest pain, described as sharp in nature and worse with inspiration Reviewed: Care Plan, H&P, Labs, Medications Changes from previous H/P or p: No Changes General: Per HPI Objective Vitals Vital Signs Date Time Temp Pulse Resp B/P (MAP) Pulse Ox O2 Delivery O2 Flow Rate FiO2 03/04/24 12:30 97.9 75 19 108/66 (80) 96 97.9 03/04/24 11:15 Room Air 03/04/24 11:15 0 21 Intake/Output Intake and Output 03/04/24 07:00 Intake Total 300 ml Balance 300 ml Intake IV Total 300 ml General Appearance: Alert, Oriented X3, Cooperative, No acute distress HEENT: Atraumatic, PERRLA Lungs: Clear to auscultation, Normal air movement Cardiovascular: Normal S1, Normal S2 Abdomen: Normal bowel sounds Rectal: Normal inspection Musculoskeletal: Normal sensory function, Normal motor function Neuro: Normal gait, Normal speech Psych/Mental Status: Mental status NL, Mood NL Medications Current Medications Medications Dose Ordered Sig/Nara Route Start Time Stop Time Status Last Admin Dose Admin Ceftriaxone Sodium 50 ml @ 100 mls/hr DAILY@0400 IV 03/05/24 04:00 Azithromycin 250 ml @ 125 mls/hr DAILY@0500 IV 03/05/24 05:00 Albuterol 2.5 mg Q6HPRN PRN NEB 03/04/24 04:30 Apixaban 5 mg BID PO 03/04/24 10:00 03/04/24 10:36 5 MG Atorvastatin Calcium 40 mg HS PO 03/04/24 22:00 Gabapentin 300 mg BID PO 03/04/24 10:00 03/04/24 10:36 300 MG Bupropion HCl 150 mg BID@ PO 03/04/24 07:00 03/04/24 08:12 150 MG Furosemide 20 mg DAILY PO 03/04/24 10:00 Lisinopril 5 mg DAILY PO 03/04/24 10:00 Aspirin 81 mg DAILY PO 03/04/24 10:00 03/04/24 10:36 81 MG Acetaminophen/ Hydrocodone Bitart 1 tab Q4HP PRN PO 03/04/24 04:30 03/04/24 05:40 1 TAB Temazepam 15 mg QHSP PRN PO 03/04/24 04:30 Ondansetron HCl 4 mg Q4HP PRN IV 03/04/24 04:30 03/04/24 05:14 4 MG Acetaminophen 650 mg Q6HP PRN PO 03/04/24 04:30 Nitroglycerin 0.4 mg Q5MINP PRN SL 03/04/24 04:30 Morphine Sulfate 2 mg Q30M PRN IV 03/04/24 04:30 Laboratory Results Laboratory Tests 03/04/24 00:06 Chemistry Test 03/04/24 00:06 Albumin 4.7 g/dL (3.2-4.8) Calcium Level 10.2 mg/dL (8.7-10.4) Total Protein 7.5 g/dL (5.7-8.2) Cardiac Markers Test 03/04/24 00:06 B-Type Natriuretic Peptide 22.25 pg/mL (0-100) LFT Test 03/04/24 00:06 Alanine Aminotransferase (ALT) 14 U/L (7-40) Alkaline Phosphatase 116 U/L (46-116) Aspartate Amino Transferase (AST) 13 U/L (13-40) Total Bilirubin 0.8 mg/dL (0.2-1.0) Urinalysis Test 03/04/24 05:17 Urine Color Yellow (Yellow) Urine Clarity Turbid (Clear) H Urine pH 6.5 (5.0-9.0) Urine Specific [place] 1.024 (1.001-1.035) Urine Protein 1+ (Negative) H Urine Ketones Negative (Negative) Urine Blood Negative /uL (Negative) Urine Nitrite Negative (Negative) Urine Bilirubin Negative (Negative) Urine Urobilinogen 2 mg/dL (Negative) H Urine Leukocyte Esterase 3+ /uL (Negative) Urine RBC 4 /hpf (0 - 4) Urine WBC 47 /hpf (0 - 5) Urine Squamous Epithelial Cells Many /hpf (<5) Urine Bacteria Few /hpf (None Seen) H Urine Mucus Few (None Seen) Urine Glucose Normal mg/dL (Normal) Labs and/or images reviewed: Labs reviewed by me, Image(s) reviewed by me Assessment/Plan Assessment/Plan Impression: -community-acquired pneumonia, probable Gram-positive/Gram-negative etiology -asthma -COPD -obesity -anxiety disorder -depression -CKD stage IIIA Plan: -continue empiric antibiotic therapy -check inflammatory markers -check D-dimer -continue home antidepressants -bronchodilators -O2 supplementation to keep saturation greater than 92% -repeat labs and chest x-ray in a.m. Total time spent with patient discussing and formulating plan of care: 35 minutes. This medical document was created using an electronic medical record system with [employer] dictation system. Although this document has been carefully reviewed, there may still be some phonetic and typographical errors. These areas are purely typographical due to imperfections of the software programs, and do not reflect any compromise in the patient's medical care. Plan discussed with: Patient, Other (RN) My Orders Orders - BLU NERI NP Procedure Category Date Status Time Erythrocyte LAB 03/04/24 Verified Sedimentation Rate 14:08 C-Reactive Protein LAB 03/04/24 Verified 14:08 D-Dimer LAB 03/04/24 Verified 14:08 Chest Portable XY 03/05/24 Verified 04:00 Date of Service: Mar 04, 2024 Billing Provider: BLU NERI NP Common Visit Codes: [id number] INP/OBS CARE(HIGH) BLU NERI NP Mar 04, 2024 14:11
[2024-03-04 17:02] LABS: Erythrocyte Sedimentation Rate 52 mm/hr (0-20)
[2024-03-04 18:41] VITALS: O2SAT 95
[2024-03-04] MEDS: ATORVASTATIN 20 MG TAB PO SCH (21:38)
[2024-03-05] MEDS: cefTRIAXone 1GM/50ML D5W 50 ML IV SCH (04:45)
[2024-03-05] MEDS: AZITHROMYCIN 500MG/ 250ML 250 ML IV SCH (05:24)
--- NOTE | 2024-03-05 07:02 | DVH ---
CHEST RADIOGRAPH Indication: pna Technique: Single frontal view of the chest was obtained Comparison: XY CHEST PORTABLE on DOS: 03/04/24 FINDINGS: Lines and Tubes: None Lungs: Mild subsegmental atelectasis in the lingula. No focal consolidation. Pleura: No effusion. No pneumothorax. Cardiomediastinal contours: Unremarkable Bones: No acute osseous abnormality. IMPRESSION: 1. Mild subsegmental atelectasis in the lingula.
[2024-03-05 08:00] VITALS: PULSE 80; RESP 18; O2SAT 95
[2024-03-05 08:03] LABS: Basophils # (auto) 0 10 ^3/uL (0-0.2); Basophils % (auto) 0.5 % (0.0-2.0); Eosinophils # (auto) 0.1 10 ^3/uL (0-0.8); Eosinophils % (auto) 1.7 % (0.0-7.0); Hematocrit 35.9 % (36.0-46.0); Lymphocytes # (auto) 0.7 10 ^3/uL (0.4-5.4); Lymphocytes % (auto) 9.5 % (10.0-50.0); Mean Corpuscular Hemoglobin 27.1 pg (28.0-32.0); Mean Corpuscular Hgb Conc. 33.4 g/dL (32.0-36.0); Mean Corpuscular Volume 81.1 fL (80.0-100.0); Monocytes # (auto) 0.5 10 ^3/uL (0-1.3); Monocytes % (auto) 7.2 % (0.0-12.0); Neutrophils # (auto) 5.7 10 ^3/uL (1.6-8.6); Neutrophils % (auto) 81.1 % (37.0-80.0); Nucleated Red Blood Cells % 0.1 %; Platelet Count (auto) 292 10^3/uL (140-450); Red Blood Cells 4.43 10^6/uL (4.0-5.20); Red Cell Distribution Width 14.2 % (11.8-14.3)
[2024-03-05 08:09] LABS: Alanine Aminotransferase 15 U/L (7-40); Alkaline Phosphatase 116 U/L (46-116); Anion Gap 7 (5-15); Aspartate Aminotransferase 16 U/L (13-40); BUN/Creatinine Ratio 14.7 (10.0-20.0); Blood Urea Nitrogen 15 mg/dL (9-23); Calcium 10.4 mg/dL (8.7-10.4); Carbon Dioxide 30 mmol/L (20-31); Chloride 101 mmol/L (98-107); Glucose 105 mg/dL (74-106); Potassium 3.8 mmol/L (3.5-5.1); Sodium 138 mmol/L (136-145)
[2024-03-05 08:10] LABS: Albumin 4.3 g/dL (3.2-4.8); Bilirubin, Total 0.6 mg/dL (0.2-1.0); Total Protein 6.9 g/dL (5.7-8.2)
[2024-03-05 09:09] VITALS: BP 117/69; PULSE 80; RESP 18; TEMP 98.3; O2SAT 95
[2024-03-05] MEDS ORDERED: DOXY100C79 PO (09:24)
--- NOTE | 2024-03-05 09:28 | DVHDS2 ---
Discharge Summary Date of Admission Mar 04, 2024 at 04:36 Date of Discharge: Mar 05, 2024 Admitting Diagnosis Community-acquired pneumonia Labs/Diagnostic Data: Laboratory Results Test 03/05/24 07:47 03/04/24 15:27 03/04/24 06:50 03/04/24 05:17 White Blood Count 7.0 10^3/uL (4.4-10.8) Red Blood Count 4.43 10^6/uL (4.0-5.20) Hemoglobin 12.0 g/dL (12.2-16.2) Hematocrit 35.9 % (36.0-46.0) Mean Corpuscular Volume 81.1 fL (80.0-100.0) Mean Corpuscular Hemoglobin 27.1 pg (28.0-32.0) Mean Corpuscular Hemoglobin Concent 33.4 g/dL (32.0-36.0) Red Cell Distribution Width 14.2 % (11.8-14.3) Platelet Count 292 10^3/uL (140-450) Mean Platelet Volume 8.0 fL (6.9-10.8) Neutrophils (%) (Auto) 81.1 % (37.0-80.0) Lymphocytes (%) (Auto) 9.5 % (10.0-50.0) Monocytes (%) (Auto) 7.2 % (0.0-12.0) Eosinophils (%) (Auto) 1.7 % (0.0-7.0) Basophils (%) (Auto) 0.5 % (0.0-2.0) Neutrophils # (Auto) 5.7 10 ^3/uL (1.6-8.6) Lymphocytes # (Auto) 0.7 10 ^3/uL (0.4-5.4) Monocytes # (Auto) 0.5 10 ^3/uL (0-1.3) Eosinophils # (Auto) 0.1 10 ^3/uL (0-0.8) Basophils # (Auto) 0 10 ^3/uL (0-0.2) Nucleated Red Blood Cells 0.1 % Sodium Level 138 mmol/L (136-145) Potassium Level 3.8 mmol/L (3.5-5.1) Chloride Level 101 mmol/L (98-107) Carbon Dioxide Level 30 mmol/L (20-31) Anion Gap 7 (5-15) Blood Urea Nitrogen 15 mg/dL (9-23) Creatinine 1.02 mg/dL (0.550-1.02) Glomerular Filtration Rate Calc 61 mL/min (>90) BUN/Creatinine Ratio 14.7 (10.0-20.0) Serum Glucose 105 mg/dL (74-106) Calcium Level 10.4 mg/dL (8.7-10.4) Total Bilirubin 0.6 mg/dL (0.2-1.0) Aspartate Amino Transferase (AST) 16 U/L (13-40) Alanine Aminotransferase (ALT) 15 U/L (7-40) Alkaline Phosphatase 116 U/L (46-116) Total Protein 6.9 g/dL (5.7-8.2) Albumin 4.3 g/dL (3.2-4.8) Erythrocyte Sedimentation Rate 52 mm/hr (0-20) D-Dimer, Quantitative 0.43 mg/L FEU (0.0-0.49) Influenza Type A Antigen Negative (Negative) Influenza Type B Antigen Negative (Negative) SARS-CoV-2 Antigen (Rapid) Negative (NEGATIVE) Urine Color Yellow (Yellow) Urine Clarity Turbid (Clear) Urine pH 6.5 (5.0-9.0) Urine Specific [place] 1.024 (1.001-1.035) Urine Protein 1+ (Negative) Urine Ketones Negative (Negative) Urine Blood Negative /uL (Negative) Urine Nitrite Negative (Negative) Urine Bilirubin Negative (Negative) Urine Urobilinogen 2 mg/dL (Negative) Urine Leukocyte Esterase 3+ /uL (Negative) Urine RBC 4 /hpf (0 - 4) Urine WBC 47 /hpf (0 - 5) Urine Squamous Epithelial Cells Many /hpf (<5) Urine Bacteria Few /hpf (None Seen) Urine Mucus Few (None Seen) Urine Glucose Normal mg/dL (Normal) Test 03/04/24 04:01 03/04/24 02:02 03/04/24 00:06 Lactic Acid Level 0.8 mmol/L (0.4-2.0) Troponin I High Sensitivity < 3 ng/L (</=34) C-Reactive Protein High Sensitivity 6.31 mg/dL (<1.0) B-Type Natriuretic Peptide 22.25 pg/mL (0-100) Other Laboratory Tests 03/05/24 07:47 Brief Hx & Hospital Course: History of Present Illness 64-year-old female presents for evaluation of shortness for breath. Patient reports a one day history of shortness for breath with a productive cough and substernal nonradiating chest pain. Denies fever or chills. No nausea or vomiting. No other acute complaints reported. Course of hospitalization: Patient was started on IV antibiotic therapy, p.r.n. breathing this. Patient's chest x-ray today has been weaned off O2 supplementation. She has been afebrile. No leukocytosis appreciated. Patient was requesting to be discharged home. She states she has an appointment with her PCP, Dr. Gardiner this coming Sunday. She was instructed to follow up with the appointment as well as continue antibiotic therapy with doxycycline 100 mg p.o. twice a day for five days. Patient will also continue all previous home medications. Physical examination General: Alert and Oriented x3. No acute distress. Well-nourished. Eyes: EOMI. Anicteric. HENT: Moist mucous membranes. Lungs: Clear to auscultation bilaterally. No accessory muscle use. Cardiovascular: Regular rate and rhythm. No murmur. No JVD. Abdomen: Soft, non-tender and non-distended. No palpable masses. Extremities: No edema. Non-tender. Skin: No rashes or lesions. Warm. Neurologic: No focal neurological deficits. CN II-XII grossly intact, but not individually tested. Psychiatric: Cooperative. Appropriate mood and affect. Total time spent with patient discussing and formulating plan of care: 35 minutes. This medical document was created using an electronic medical record system with [employer] dictation system. Although this document has been carefully reviewed, there may still be some phonetic and typographical errors. These areas are purely typographical due to imperfections of the software programs, and do not reflect any compromise in the patient's medical care. Condition at Discharge: Fair Final Diagnosis/Problems List Community-acquired pneumonia, probable Gram-positive/Gram-negative etiology Secondary Diagnosis: -asthma -COPD -obesity -anxiety disorder -depression -CKD stage IIIA Discharge Disposition: Home Discharge Instruct/Medications Diet: Cardiac 2g Na,low cholest Activity: No Restrictions, As Tolerated Follow Up/Referral: Follow up with PCP with established appointment this Sunday Medications: Doxycycline 100 mg p.o. b.i.d. x5 days. 36 Discharge Statement: "Patient was advised to return to the ER or call 911 if any headaches, dizziness, shortness of breath, chest pain, abdominal pain, bleeding, fevers, or worsening of medical condition. Patient was counseled about treatment plan, medications, possible side effects, patientverbalized understanding. All questions were answered to the best of my ability. This discharge took greater then 30 minutes in planning, reviewing documentation, counseling the patient, and discussing with other team members." ASSESSMENT ASSESSMENT Assessment Community-acquired pneumonia, probable Gram-positive/Gram-negative etiology Date of Service: Mar 05, 2024 Billing Provider: BLU NERI NP Common Visit Codes: 94760-POZ/OBS DISCH DAY >30min BLU NERI NP Mar 05, 2024 09:28
[2024-03-05 11:50] VITALS: BP 117/69; PULSE 80; RESP 18; TEMP 98.3; O2SAT 95
== END 2024-03-05 12:43 | disposition home or self-care (01) | DRG 137 ==
LOC: ER 23:06 → EDBD 23:06 → TELE 03-04 04:36
PROVIDERS: ADMIT Nurse Practitioner; ATTEND Nurse Practitioner Acute Care
DX: J15.69 Pneumonia due to other Gram-negative bacteria (principal); E66.9 Obesity, unspecified; J45.909 Unspecified asthma, uncomplicated; I12.9 Hypertensive chronic kidney disease with stage 1 through stage 4 chronic kidney disease, or unspecified chronic kidney disease; E87.6 Hypokalemia; J15.9 Unspecified bacterial pneumonia; F41.9 Anxiety disorder, unspecified; F32.A Depression, unspecified; N18.31 Chronic kidney disease, stage 3a; E78.5 Hyperlipidemia, unspecified; Z90.710 Acquired absence of both cervix and uterus; Z96.653 Presence of artificial knee joint, bilateral; Z68.32 Body mass index [BMI] 32.0-32.9, adult; Z79.899 Other long term (current) drug therapy; J44.9 Chronic obstructive pulmonary disease, unspecified
CPT/HCPCS: 36415; 71045; 80053; 81001; 83605; 83880; 84484; 85025; 85379; 85652; 86141; 87426; 87804; 93005; G0378; J2405

== ENCOUNTER 2024-04-15 20:38 | Inpatient (IN) | payer MEDICAID ==
[~2024-04-15] VITALS: Ht 149.9 cm; Wt 74.3 kg
[~2024-04-15 20:38] MED LIST changes: +DOXY100C79 PO
--- NOTE | 2024-04-15 20:50 | ED.PDOC ---
SOB-HPI HPI Comments 64-year-old female with PMHx Asthma presents with a chief complaint of SOB x 3 days with associated wheezing. Patient reports that she has been out of her nebulizer medication at home and has not been able to use it. Patient was wheezing bilaterally according to EMS. EMS placed patient on a breathing treatment and patient reports some improvement. Patient is sating at 97% on room air. Denies any sick contacts at home. Chief Complaint: Shortness of Breath Time Seen by MD: 20:45 Primary Care Provider: ISRAEL Covarrubias notes: Medications, Allergies Information Source: Patient, Emergency Med Personnel Mode of Arrival: EMS Severity: Moderate Timing: Days Duration: Since onset Context: At Rest PE Risk Factors: None History of: Asthma Prehospital treatment: Breathing Tx Associated Signs and Symptoms: Wheeze Past Medical History PAST MEDICAL HISTORY: Anxiety, Arthritis, Asthma, CKF, Depression, High Lipids, HTN, UTI'S Surgical History: Appendectomy, Hysterectomy, Tubal Ligation MOBILE DEVELOPMENT MANAGER History: No Pertinent MOBILE DEVELOPMENT MANAGER History Family History Family History: Unknown Social History Smoker: Non-Smoker Alcohol: Denies ETOH Use Drugs: Marijuana Lives In: Home Constitutional: denies: chills, diaphoresis, fatigue, fever, malaise, sweats, weakness, others EENTM: denies: blurred vision, double vision, ear bleeding, ear discharge, ear drainage, ear pain, ear ringing, eye pain, eye redness, hearing loss, mouth pain, mouth swelling, nasal discharge, nose bleeding, nose congestion, nose pain, photophobia, tearing, throat pain, throat swelling, voice changes, others Respiratory: reports: shortness of breath, wheezing; denies: cough, hemoptysis, orthopnea, SOB at rest, SOB with excertion, stridor, others Cardiovascular: denies: chest pain, dizzy spells, diaphoresis, Dyspnea on exertion, edema, irregular heart beat, left arm pain, lightheadedness, palpitations, PND, syncope, others Gastrointestinal: denies: abdomen distended, abdominal pain, blood streaked bowels, constipated, diarrhea, dysphagia, difficulty swallowing, hematemesis, melena, nausea, poor appetite, poor fluid intake, rectal bleeding, rectal pain, vomiting, others Genitourinary: denies: abnormal vagina bleeding, burning, dyspareunia, dysuria, flank pain, frequency, hematuria, incontinence, pain, , vagina discharge, urgency, others Neurological: denies: dizziness, fainting, headache, left sided numbness, left sided weakness, numbness, paresthesia, pre-existing deficit, right sided numbness, right sided weakness, seizure, speech problems, tingling, tremors, weakness, others Musculoskeletal: denies: back pain, gout, joint pain, joint swelling, muscle pain, muscle stiffness, neck pain, others Integumetry: denies: bruises, change in color, change in hair/nails, dryness, laceration, lesions, lumps, rash, wounds, others Allergic/Immunocompromised: denies: Difficulty Healing, Frequent Infections, Hives, Itching, others Hematologic/Lymphatic: denies: anemia, blood clots, easy bleeding, easy bruising, swollen glands, others Endocrine: denies: excessive hunger, excessive sweating, excessive thirst, excessive urination, flushing, intolerance to cold, intolerance to heat, unexplained weight gain, unexplained weight loss, others Psychiatric: denies: anxiety, bipolar disorder, depression, hopeless, panic disorder, schizophrenia, sleepless, suicidal, others All Other Systems: Reviewed and Negative Physical Exam General Appearance: No Apparent Distress, Normal HEENT: Normal ENT Inspection, Pharynx Normal, TMs Normal Neck: Full Range of Motion, Non-Tender, Normal, Normal Inspection Respiratory: Chest Non-Tender, Lungs Clear, No Accessory Muscle Use, No Respiratory Distress, Normal Breath Sounds Cardiovascular: No Edema, No JVD, No Murmur, No Gallop, Normal Peripheral Pulses, Regular Rate/Rhythm Breast Exam: Deferred Gastrointestinal: No Organomegaly, Non Tender, No Pulsatile Mass, Normal Bowel Sounds, Soft Genitalia: Deferred Pelvic: Deferred Rectal: Deferred Extremities: No calf tenderness, Normal capillary refill, Normal inspection, Normal range of motion, Non-tender, No pedal edema Musculoskeletal : Apperance: Normal Neurologic: Alert, manager water II-XII nml as Tested, No Motor Deficits, Normal Affect, Normal Mood, No Sensory Deficits Cerebellar Function: Normal Reflexes: Normal Skin: Dry, Normal Color, Warm Lymphatic: No Adenopathy Was a procedure done? Was a procedure done?: No Differential Dx Differential Diagnosis: Asthma, Bronchitis, CHF, COPD, Pneumothorax, Respiratory Distress, URI, Other X-Ray, Labs, Meds, VS Vital Signs Date Time Temp Pulse Resp B/P (MAP) Pulse Ox O2 Delivery O2 Flow Rate FiO2 04/16/24 02:02 84 14 97 Room Air* 0 04/16/24 01:56 97.6 86 14 126/64 (84) 97 97.6 04/16/24 01:13 18 98 Room Air* 0 04/16/24 00:42 98.1 84 20 127/74 (91) 95 98.1 04/16/24 00:42 74 20 95 Room Air 04/15/24 21:02 18 97 Room Air* 0 04/15/24 20:43 98.1 102 20 121/72 (88) 97 04/15/24 20:42 97 Lab Test 04/15/24 21:04 Range/Units White Blood Count 6.6 4.4-10.8 10^3/uL Red Blood Count 5.23 H 4.0-5.20 10^6/uL Hemoglobin 13.6 12.2-16.2 g/dL Hematocrit 42.4 36.0-46.0 % Mean Corpuscular Volume 81.0 80.0-100.0 fL Mean Corpuscular Hemoglobin 26.0 L 28.0-32.0 pg Mean Corpuscular Hemoglobin Concent 32.0 32.0-36.0 g/dL Red Cell Distribution Width 16.5 H 11.8-14.3 % Platelet Count 192 140-450 10^3/uL Mean Platelet Volume 8.5 6.9-10.8 fL Neutrophils (%) (Auto) 74.4 37.0-80.0 % Lymphocytes (%) (Auto) 18.2 10.0-50.0 % Monocytes (%) (Auto) 5.1 0.0-12.0 % Eosinophils (%) (Auto) 1.7 0.0-7.0 % Basophils (%) (Auto) 0.6 0.0-2.0 % Neutrophils # (Auto) 4.9 1.6-8.6 10 ^3/uL Lymphocytes # (Auto) 1.2 0.4-5.4 10 ^3/uL Monocytes # (Auto) 0.3 0-1.3 10 ^3/uL Eosinophils # (Auto) 0.1 0-0.8 10 ^3/uL Basophils # (Auto) 0 0-0.2 10 ^3/uL Nucleated Red Blood Cells 0.2 % Sodium Level 141 136-145 mmol/L Potassium Level 3.1 L 3.5-5.1 mmol/L Chloride Level 107 98-107 mmol/L Carbon Dioxide Level 22 20-31 mmol/L Anion Gap 12 5-15 Blood Urea Nitrogen 19 9-23 mg/dL Creatinine 1.46 H 0.550-1.02 mg/dL Glomerular Filtration Rate Calc 40 >90 mL/min BUN/Creatinine Ratio 13.0 10.0-20.0 Serum Glucose 121 H 74-106 mg/dL Calcium Level 10.1 8.7-10.4 mg/dL Total Bilirubin 0.7 0.2-1.0 mg/dL Aspartate Amino Transferase (AST) 18 13-40 U/L Alanine Aminotransferase (ALT) 21 7-40 U/L Alkaline Phosphatase 131 H 46-116 U/L Troponin I High Sensitivity < 3 L </=34 ng/L B-Type Natriuretic Peptide 21.08 0-100 pg/mL Total Protein 7.1 5.7-8.2 g/dL Albumin 4.5 3.2-4.8 g/dL Current Medications Medications (Trade) Dose Ordered Sig/Nara Route Start Time Stop Time Status Last Admin Albuterol (Ventolin Medneb) 5 mg ONCE ONCE NEB 04/15/24 21:00 04/15/24 21:01 [place] 04/15/24 21:01 Ipratropium [place] (Atrovent Medneb) 0.5 mg ONCE ONCE NEB 04/15/24 21:00 04/15/24 21:01 [place] 04/15/24 21:01 Prednisone 40 mg ONCE ONCE PO 04/15/24 21:00 04/15/24 21:01 [place] 04/15/24 21:00 Potassium Chloride (Klor-Con Tablet) 40 meq ONCE ONCE PO 04/15/24 22:00 04/15/24 22:14 DC 04/15/24 22:00 Albuterol (Ventolin Medneb) 5 mg ONCE ONCE NEB 04/16/24 01:00 04/16/24 01:01 [place] 04/16/24 01:06 Time of 1ST Reevaluation: 21:15 Reevaluation 1ST: Unchanged Time of 2ND Reevaluation: 00:57 Reevaluation 2ND: Unchanged Patient Education/Counseling: Diagnosis, Treatment, Prognosis Family Education/Counseling: No Family Present Departure 1 Departure Time of Disposition: 00:57 Impression: Primary Impression: Asthma exacerbation Additional Impression: Respiratory failure with hypoxia Disposition: ADMITTED INPATIENT Admit to: Med Surg Condition: Guarded e-Prescriptions Prednisone (Prednisone) 20 Mg Tab 20 MG PO BID for 5 Days, #10 TAB Prov: NATO BOWEN MD 04/15/24 Azithromycin (Azithromycin) 500 Mg Tab 1 TAB PO DAILY for 7 Days, #7 TAB Prov: NATO BOWEN MD 04/15/24 Albuterol Sulfate (Albuterol Sulfate Hfa) 108 Mcg/Act Aer 108 MCG IN Q6HP PRN for 10 Days, #1 AER Prov: NATO BOWEN MD 04/15/24 Albuterol Sulfate (Albuterol Sulfate) 0.083 % Neb 1 VIAL NEB Q4HPRN PRN for 20 Days, #50 VIAL Prov: NATO BOWEN MD 04/15/24 Discharged With: Self Critical Care Note Critical Care Time?: No Stability Stability form required: No Heart Score Heart Score: Heart Score Response (Comments) Value History Slightly Suspicious 0 EKG Normal 0 Age 45-64 1 Risk Factors 1 or 2 risk factors 1 Troponin Normal limit 0 Total 2 I personally scribed for NATO BOWEN MD ([email or web address]) on 04/15/24 at 20:50. Electronically submitted by Robert White [email or web address]). NATO BOWEN MD Apr 15, 2024 20:50
[2024-04-15] MEDS: predniSONE 20 MG TAB PO ONE (21:00)
[2024-04-15] MEDS: IPRATROPIUM BROM 0.5 MG/2.5ML INH SOL NEB ONE (21:01)
[2024-04-15] MEDS: ALBUTEROL SULF 2.5 MG/0.5ML(0.5%) NEB SOLN NEB ONE (21:01)
--- NOTE | 2024-04-15 21:08 | DVH ---
CHEST RADIOGRAPH Indication: SOB Technique: Single frontal view of the chest was obtained Comparison: XY CHEST PORTABLE on DOS: 03/05/24, XY CHEST PORTABLE on DOS: 03/04/24, XY CHEST PORTABLE on DOS: 12/18/23 FINDINGS: Lines and Tubes: None Lungs: No focal consolidation. Linear densities of the left mid and lower lung zone. Pleura: No effusion. No pneumothorax. Cardiomediastinal contours: Unremarkable Bones: No acute osseous abnormality. Clips are noted in the right paratracheal stripe region. IMPRESSION: Left mid and lower lung zone linear atelectasis /scarring. Otherwise, no evidence of acute cardiopul monary disease.
[2024-04-15 21:17] LABS: Basophils # (auto) 0 10 ^3/uL (0-0.2); Basophils % (auto) 0.6 % (0.0-2.0); Eosinophils # (auto) 0.1 10 ^3/uL (0-0.8); Eosinophils % (auto) 1.7 % (0.0-7.0); Hematocrit 42.4 % (36.0-46.0); Hemoglobin 13.6 g/dL (12.2-16.2); Lymphocytes # (auto) 1.2 10 ^3/uL (0.4-5.4); Lymphocytes % (auto) 18.2 % (10.0-50.0); Monocytes # (auto) 0.3 10 ^3/uL (0-1.3); Monocytes % (auto) 5.1 % (0.0-12.0); Neutrophils # (auto) 4.9 10 ^3/uL (1.6-8.6); Neutrophils % (auto) 74.4 % (37.0-80.0); Nucleated Red Blood Cells % 0.2 %; Platelet Count (auto) 192 10^3/uL (140-450); Red Blood Cells 5.23 10^6/uL (4.0-5.20); Red Cell Distribution Width 16.5 % (11.8-14.3); White Blood Cell 6.6 10^3/uL (4.4-10.8)
[2024-04-15 21:45] LABS: Alanine Aminotransferase 21 U/L (7-40); Albumin 4.5 g/dL (3.2-4.8); Anion Gap 12 (5-15); Aspartate Aminotransferase 18 U/L (13-40); Blood Urea Nitrogen 19 mg/dL (9-23); Calcium 10.1 mg/dL (8.7-10.4); Carbon Dioxide 22 mmol/L (20-31); Sodium 141 mmol/L (136-145)
[2024-04-15 21:46] LABS: Bilirubin, Total 0.7 mg/dL (0.2-1.0); Total Protein 7.1 g/dL (5.7-8.2)
[2024-04-15 21:48] LABS: Alkaline Phosphatase 131 U/L (46-116); Chloride 107 mmol/L (98-107); Glucose 121 mg/dL (74-106); Potassium 3.1 mmol/L (3.5-5.1)
[2024-04-15] MEDS ORDERED: ALBU0.084 NEB (21:59)
[2024-04-15] MEDS ORDERED: AZIT500T66 PO (21:59)
[2024-04-15] MEDS ORDERED: PRED20TA2 PO (21:59)
[2024-04-15] MEDS ORDERED: ALBU108A5 IN (21:59)
[2024-04-15] MEDS: POTASSIUM CHL 20 Meq TABLET PO ONE (22:00)
[2024-04-16] VITALS (11 sets, daily range): BP systolic 116–129; BP diastolic 58–77; PULSE 63–96; RESP 14–20; TEMP 97.6–98; O2SAT 92–98
[2024-04-16] MEDS: ALBUTEROL SULF 2.5 MG/0.5ML(0.5%) NEB SOLN NEB ONE (01:06)
[2024-04-16] MEDS: ALBUTEROL SULF 2.5 MG/0.5ML(0.5%) NEB SOLN ONE (01:07)
[2024-04-16 03:10] LABS: Eosinophils # (auto) 0 10 ^3/uL (0-0.8); Hemoglobin 12.3 g/dL (12.2-16.2); Lymphocytes # (auto) 0.5 10 ^3/uL (0.4-5.4); Monocytes # (auto) 0.2 10 ^3/uL (0-1.3)
[2024-04-16 03:12] LABS: Basophils # (auto) 0 10 ^3/uL (0-0.2); Basophils % (auto) 0.5 % (0.0-2.0); Eosinophils % (auto) 0.2 % (0.0-7.0); Hematocrit 36.9 % (36.0-46.0); Mean Corpuscular Hemoglobin 26.4 pg (28.0-32.0); Mean Corpuscular Hgb Conc. 33.4 g/dL (32.0-36.0); Mean Corpuscular Volume 79.1 fL (80.0-100.0); Monocytes % (auto) 2.2 % (0.0-12.0); Neutrophils # (auto) 6.5 10 ^3/uL (1.6-8.6); Neutrophils % (auto) 90.1 % (37.0-80.0); Nucleated Red Blood Cells % 0.1 %; Platelet Count (auto) 197 10^3/uL (140-450); Red Blood Cells 4.67 10^6/uL (4.0-5.20); Red Cell Distribution Width 16.6 % (11.8-14.3); White Blood Cell 7.3 10^3/uL (4.4-10.8)
[2024-04-16 03:31] LABS: Alanine Aminotransferase 19 U/L (7-40); Albumin 4.4 g/dL (3.2-4.8); Anion Gap 11 (5-15); Aspartate Aminotransferase 13 U/L (13-40); BUN/Creatinine Ratio 17.1 (10.0-20.0); Blood Urea Nitrogen 19 mg/dL (9-23); Carbon Dioxide 23 mmol/L (20-31); Chloride 105 mmol/L (98-107); Potassium 3.5 mmol/L (3.5-5.1); Sodium 139 mmol/L (136-145)
[2024-04-16 03:32] LABS: Total Protein 6.8 g/dL (5.7-8.2)
[2024-04-16 03:42] LABS: Alkaline Phosphatase 119 U/L (46-116); Glucose 111 mg/dL (74-106)
--- NOTE | 2024-04-16 05:57 | ECG ---
[facility] Test Date: 2024-04-15 Test Time: 20:42:02 Pat Name: DAVID ARCHIBALD Department: ED Room: 0294 Gender: F Communications Associate: SANG : 1960 Requested By: NATO BOWEN Order Number: [id number] Reading MD: Rajesh Loaiza Measurements Intervals [place] Rate: 97 P: 35 CA: 149 QRS: 6 QRSD: 91 T: 1 QT: 368 QTc: 468 Interpretive Statements Sinus rhythm Probable left atrial enlargement Low voltage, precordial leads Electronically Signed On 04-17-2024 8:48:57 PST by Rajesh Loaiza Please click the below link to view image of tracing.
--- NOTE | 2024-04-16 06:05 | DVHHPRES ---
History of Present Illness Resident Creating Document: TIBURCIONIKKYPOORNIMA RESIDENT History of Present Illness Patient is a 64-year-old female with a past medical history of asthma, hypertension, CKD stage 3, arthritis, depression came to the ED with a chief complaint of shortness of breath with a past 2 days. Patient reported that since Sunday she has been having increasing shortness of breath but she did not have any flu-like symptoms of cough, cold, congestion, fever, chills. Patient denied chest pain, palpitations. Patient does not use oxygen at home. Patient was admitted in February for similar complaint of shortness of breath and was sent home on oral doxycycline for 5 days. Since the hospitalization patient reports she was doing apparently well until Sunday when she started having shortness of breath. Past medical history: asthma, hypertension, CKD stage 3, arthritis, depression, h/o dvt Past surgical history: Surgery for carpal tunnel syndrome, bilateral total knee replacement Social history: Patient lives with her friend and denies smoking, alcohol, drug use Home medication: Patient was not able to provide her current list of medications as she does not remember but according to the records she is on albuterol inhaler, escitalopram 20 mg, fluticasone-salmeterol inhaler, gabapentin 300 mg b.i.d., lisinopril 5 mg, trazodone 100 mg q.h.s Review of Systems Review of Systems Patient reports shortness of breath Denies chest pain, weakness, palpitations, headache. Allergies: Coded Allergies: Sulfa Antibiotics (Verified Allergy, Unknown, 09/16/23) Medications Current Medications Medications Dose Ordered Sig/Nara Route Start Time Stop Time Status Last Admin Dose Admin Albuterol 2.5 mg Q6HPRN PRN NEB 04/16/24 04:00 Ipratropium [place] 0.5 mg Q6HPRN PRN NEB 04/16/24 04:00 Atorvastatin Calcium 40 mg HS PO 04/16/24 22:00 Exam Vital Signs Vital Signs Date Time Temp Pulse Resp B/P (MAP) Pulse Ox O2 Delivery O2 Flow Rate FiO2 04/16/24 04:35 98.0 83 20 113/54 (73) 95 98.0 04/16/24 02:02 Room Air* 0 21 Exam Physical Examination Constitutional: Patient was alert and oriented to time, place and person and does not appear to be in any acute distress Gen - no pallor, no icterus, no cyanosis, no clubbing, no LAD, no edema . Skin - Patients skin is warm and dry. HEENT - normocephalic, atraumatic, moist mucous membranes. Neck - full ROM, no LAD, no JVD Pulmonary - B/L vesicular breath sounds. no crackles , no wheezing, no stridor. cardiovascular - normal S1,S2 heard. no murmurs heard. peripheral pulses radial 2+, pedal 2+. GI - soft abdomen without tenderness to palpation . no hepatospleenomegaly. Bowel sounds normoactive Neurological - Bilateral upper extremity strength 5/5, bilateral lower extremity strength 5/5, no facial droop, normal speech, no tremor, no sensory deficiets. Labs/Xrays Labs Test 04/16/24 02:56 04/15/24 21:04 Range/Units White Blood Count 7.3 4.4-10.8 10^3/uL Red Blood Count 4.67 4.0-5.20 10^6/uL Hemoglobin 12.3 12.2-16.2 g/dL Hematocrit 36.9 # 36.0-46.0 % Mean Corpuscular Volume 79.1 L 80.0-100.0 fL Mean Corpuscular Hemoglobin 26.4 L 28.0-32.0 pg Mean Corpuscular Hemoglobin Concent 33.4 32.0-36.0 g/dL Red Cell Distribution Width 16.6 H 11.8-14.3 % Platelet Count 197 140-450 10^3/uL Mean Platelet Volume 8.3 6.9-10.8 fL Neutrophils (%) (Auto) 90.1 H 37.0-80.0 % Lymphocytes (%) (Auto) 7.0 L 10.0-50.0 % Monocytes (%) (Auto) 2.2 0.0-12.0 % Eosinophils (%) (Auto) 0.2 0.0-7.0 % Basophils (%) (Auto) 0.5 0.0-2.0 % Neutrophils # (Auto) 6.5 1.6-8.6 10 ^3/uL Lymphocytes # (Auto) 0.5 0.4-5.4 10 ^3/uL Monocytes # (Auto) 0.2 0-1.3 10 ^3/uL Eosinophils # (Auto) 0 0-0.8 10 ^3/uL Basophils # (Auto) 0 0-0.2 10 ^3/uL Nucleated Red Blood Cells 0.1 % Sodium Level 139 136-145 mmol/L Potassium Level 3.5 3.5-5.1 mmol/L Chloride Level 105 98-107 mmol/L Carbon Dioxide Level 23 20-31 mmol/L Anion Gap 11 5-15 Blood Urea Nitrogen 19 9-23 mg/dL Creatinine 1.11 H 0.550-1.02 mg/dL Glomerular Filtration Rate Calc 56 >90 mL/min BUN/Creatinine Ratio 17.1 10.0-20.0 Serum Glucose 111 H 74-106 mg/dL Calcium Level 10.0 8.7-10.4 mg/dL Total Bilirubin 1.0 0.2-1.0 mg/dL Aspartate Amino Transferase (AST) 13 13-40 U/L Alanine Aminotransferase (ALT) 19 7-40 U/L Alkaline Phosphatase 119 H 46-116 U/L Total Protein 6.8 5.7-8.2 g/dL Albumin 4.4 3.2-4.8 g/dL Troponin I High Sensitivity < 3 L </=34 ng/L B-Type Natriuretic Peptide 21.08 0-100 pg/mL Assessment/Plan Assessment/Plan # acute respiratory distress # COPD exacerbation likely d/t acute pneumonitis # acute pneumonitis # ?acute on chronic heart failure with preserved ejection fraction - chest x-ray shows increased pulmonary vascular marking - echocardiogram in October 2023 showed LVEF 65%, RVSP 35 mmHg - on prednisone 40 mg p.o. daily - ceftriaxone 1 g IV daily - given 1 dose of furosemide 20 mg IV - nebulizer with albuterol 5 mg and ipratropium 0.5 mg once given - albuterol 2.5 mg and ipratropium 0.5 mg medneb q.6 p.r.n. - currently the patient is on room air # h/o Hypertensive heart disease # h/o dyslipidemia - patient does not remember what she takes for blood pressure currently but according to records lisinopril 5 mg q.d. - currently the lisinopril is held given soft blood pressure. - atorvastatin 40 mg q.h.s. # questionable history of DVT - patient does not report history of DVT - according to the records patient is on Eliquis 5 mg b.i.d. but the patient does not remember if she takes it. - bilateral lower extremity venous duplex pending - EKG showed sinus rhythm - currently apixaban is held # H/o depression - at home patient is on escitalopram 20 mg, - really all medication is held as the patient is not sure what she takes. Pod prophylaxis: Pantoprazole 40 mg q.d. DVT prophylaxis: Enoxaparin 40 mg Sc q.d. Goals of care discussed with the patient for over 25 minutes. Full code Plan discussed with Plan discussed with: Patient My Orders Orders - LEÓN DEY Procedure Category Date Status Time Admit ADMIT 04/16/24 Transmitted 02:29 Urinalysis LAB 04/16/24 Logged 02:29 Drug Screen LAB 04/16/24 Logged 02:29 Covid19 Antigen Lizzette LAB 04/16/24 Logged Rapid Influenza A&B LAB 04/16/24 Logged 02:29 Mrsa Screen MITUL 04/16/24 Logged 02:29 Albuterol Medneb PHA 04/16/24 In Process (Ventolin Medneb) 04:00 Ipratropium Medneb PHA 04/16/24 In Process (Atrovent Medneb) 04:00 Atorvastatin (Lipitor) PHA 04/16/24 In Process 22:00 Code Status CODE 04/16/24 Transmitted 02:40 Date of Service: Apr 16, 2024 Billing Provider: YOVANI NORWOOD MD Common Visit Codes: 46401-[id number] INP/OBS CARE (HIGH) LEÓN DEY RESIDENT Apr 16, 2024 06:05 YOVANI NORWOOD MD Apr 16, 2024 08:40
[2024-04-16] MEDS: FUROSEMIDE 20 MG/2 ML VIAL IV ONE ×2 (06:55→17:59)
--- NOTE | 2024-04-16 07:43 | DVH ---
Bilateral lower extremity venous duplex Clinical History: rule out DVT Comparison: None Technique: Duplex Doppler evaluation of the deep venous systems of both lower extremities from the common femora l veins to the popliteal veins including color Doppler and spectral/pulsed waveform analysis was perf ormed. Findings: RIGHT SIDE: The common femoral vein demonstrates appropriate compressibility and waveform variability. There is compressibility/patency of the great saphenous vein at the proximal thigh. The femoral vein demonstrates appropriate compressibility and waveform variability. The deep femoral vein demonstrates appropriate compressibility and waveform variability. The popliteal vein demonstrates appropriate compressibility and waveform variability. There is color flow at the tibioperoneal trunk and in the posterior tibial vein. LEFT SIDE: The common femoral vein demonstrates appropriate compressibility and waveform variability. There is compressibility/patency of the great saphenous vein at the proximal thigh. The femoral vein demonstrates appropriate compressibility and waveform variability. The deep femoral vein demonstrates appropriate compressibility and waveform variability. The popliteal vein demonstrates appropriate compressibility and waveform variability. There is color flow at the tibioperoneal trunk and in the posterior tibial vein. Impression: 1. No right or left femoropopliteal venous thrombosis.
[2024-04-16] MEDS: predniSONE 20 MG TAB PO SCH (08:21)
[2024-04-16 08:22] LABS: Urine Bacteria None Seen /hpf (None Seen)
[2024-04-16] MEDS: ENOXAPARIN SOD 40 MG/0.4 ML SYRINGE SC SCH (08:23)
[2024-04-16 08:37] LABS: Urine Blood Negative /uL (Negative); Urine Clarity Clear (Clear); Urine Color Colorless (Yellow); Urine Protein, UAD Negative (Negative); Urine Specific Gravity 1.004 (1.001-1.035); Urine Squamous Epithelial Cell FEW /hpf (<5); Urine Urobilinogen Normal (Negative); Urine WBC <1 /hpf (0 - 5)
[2024-04-16 08:54] LABS: Amphetamine Screen, Urine Neg (NEGATIVE)
[2024-04-16 08:56] LABS: Barbiturate Scree,Urine Neg (NEGATIVE); Benzodiazephine Screen, Urine Neg (NEGATIVE); Cannabinoid Screen, Urine Neg (NEGATIVE); Cocaine Screen, Urine Neg (NEGATIVE); Opiate Scree,Urine Neg (NEGATIVE); Phencyclidine Screen, Urine Neg (NEGATIVE)
[2024-04-16] MEDS: cefTRIAXone 1GM/50ML D5W 50 ML IV SCH (09:00)
[2024-04-16 09:05] LABS: COVID19 ANTIGEN SOFIA FIA NEGATIVE (NEGATIVE)
[2024-04-16 09:06] LABS: Rapid Influenza A Negative (Negative); Rapid Influenza B Negative (Negative)
[2024-04-16] MEDS: IPRATROPIUM BROM 0.5 MG/2.5ML INH SOL NEB PRN (11:45)
[2024-04-16] MEDS: ALBUTEROL SULF 2.5 MG/0.5ML(0.5%) NEB SOLN NEB PRN (11:45)
[2024-04-16] MEDS: SODIUM CHLORIDE 0.9% 1,000 ML IV SCH (12:00)
[2024-04-16] MEDS: HYDROcodone-ACET 5/325MG TAB PO PRN (15:58)
--- NOTE | 2024-04-16 16:24 | DVHPNRES ---
Progress Note Date Seen: Apr 16, 2024 Resident Creating Document: MENDEZ MORALES SILVIA Has the PT tested + for MRSA If YES, has PT been informed?: No Medical Necessity Reason Pt with a Central, PICC or Fol: No Subjective Review of Systems Patient is a 64-year-old female with a past medical history of asthma, hypertension, CKD stage 3, arthritis, and depression, who came to the ED with a chief complaint of shortness of breath for the past 2 days. The patient reported that since Sunday, she has been experiencing increasing shortness of breath but did not have any flu-like symptoms such as cough, cold, congestion, fever, or chills. The patient denied chest pain and palpitations. She does not use oxygen at home. The patient was admitted in February for a similar complaint of shortness of breath and was sent home on oral doxycycline for 5 days. Since that hospitalization, the patient reports she was doing well until Sunday when she started having shortness of breath. Past medical history: Asthma, hypertension, CKD stage 3, arthritis, depression, history of DVT Past surgical history: Surgery for carpal tunnel syndrome, bilateral total knee replacement Social history: Patient lives with her friend and denies smoking, alcohol, or drug use Home medications: Patient was not able to provide her current list of medications as she does not remember, but according to the records, she is on albuterol inhaler, escitalopram 20 mg, fluticasone-salmeterol inhaler, gabapentin 300 mg b.i.d., lisinopril 5 mg, and trazodone 100 mg q.h.s. Today, patient seen and examined at the bedside. Patient is still complained of shortness of breaths and bed. Patient has history of around 30 hospital visits within 1 year. Patient reports: No new complaints, Feels better Changes from previous H/P or p: Changes Objective vital signs Vital Sign Date Time Temp Pulse Resp B/P (MAP) Pulse Ox O2 Delivery O2 Flow Rate FiO2 04/16/24 12:58 97.6 92 18 129/77 (94) 93 97.6 04/16/24 11:45 Room Air* 0 21 medications Current Medications Medications Dose Ordered Sig/Nara Route Start Time Stop Time Status Last Admin Dose Admin Albuterol 2.5 mg Q6HPRN PRN NEB 04/16/24 04:00 04/16/24 11:45 2.5 MG Ipratropium [employer] 0.5 mg Q6HPRN PRN NEB 04/16/24 04:00 04/16/24 11:45 0.5 MG Atorvastatin Calcium 40 mg HS PO 04/16/24 22:00 Prednisone 40 mg DAILY PO 04/16/24 10:00 04/16/24 08:21 40 MG Enoxaparin Sodium 40 mg DAILY SC 04/16/24 10:00 04/16/24 08:23 40 MG Sodium Chloride 1,000 ml @ 60 mls/hr [id number] IV 04/16/24 12:00 04/16/24 12:00 60 MLS/HR Acetaminophen/ Hydrocodone Bitart 1 tab Q4HPRN PRN PO 04/16/24 12:00 Examination General Appearance: Alert, Oriented X3, Cooperative, No acute distress HEENT: Atraumatic, PERRLA, EOMI, Mucous membrane moist/pink Respiratory: Bilateral mild rhonchi Cardiovascular: Regular rate, Normal S1, Normal S2, No murmurs, no chest wall tenderness Abdominal: Normal bowel sounds, Soft, No tenderness, No hepatospenomegaly, No masses Extremities: No clubbing, No cyanosis, No edema, Normal pulses, No tenderness/swelling Skin: No rashes, No breakdown, No significant lesion Neuro: Normal gait, Normal speech, Strength at 5/5 X4 ext, Normal tone, Sensation intact, Cranial nerves 3-12 NL, Reflexes 2+ Psych/Mental Status: Mental status NL, Mood NL laboratory and microbiology Laboratory Tests 04/16/24 02:56 Test 04/16/24 02:56 Range/Units Serum Glucose 111 H 74-106 mg/dL Labs and/or images reviewed: Labs reviewed by me, Image(s) reviewed by me Problem List/Assessment/Plan Problem List/Assessment/Plan Acute exacerbation of asthma Possible atypical pneumonia acute pneumonitis Acute respiratory distress , likely due to pneumonia Possible acute on chronic diastolic heart failure Chest x-ray shows bilaterally increased pulmonary vascular marking with bilateral ground-glass opacity Check influenza a, B and MRSA nares Empiric antibiotic levofloxacin Tablet prednisone 40 mg daily Nebulization q.6 hr Lasix 20 mg once Incentive spirometry Hypokalemia, supplemented Depression Continue trazodone Hypertension Continue lisinopril HENRI, on CKD grade 1, likely hemodynamically mediated DIET: Cardiac diet DVT PROPHYLAXIS: Lovenox GI PROPHYLAXIS:: Protonix BOWEL REGIMEN: Colace as needed CODE STATUS: Goal of care discussed for more than 27 minutes, full code DISPOSITION: Med surge Patient's status discussed with the patient. Case discussed with Dr. Landis Plan discussed with: Patient, Other (RN) My Orders My Orders Orders - MENDEZ MORALES RESDIILEANA Procedure Category Date Status Time Cardiac DIET 04/16/24 Transmitted Diet-2gna,Lofat,Lochol Lunch Sodium Chloride 0.9% PHA 04/16/24 In Process 12:00 Hydrocodone-Acet PHA 04/16/24 In Process 5/325mg Tab (Karval 12:00 Date of Service: Apr 16, 2024 Billing Provider: FRANKIE GA MD Common Visit Codes: [id number] INP/OBS CARE(HIGH) MENDEZ MORALES RESDIILEANA Apr 16, 2024 16:24 FRANKIE GA MD Apr 18, 2024 09:54
[2024-04-16] MEDS: traZODone HCL 50 MG TAB PO SCH (21:20)
[2024-04-16] MEDS: GABAPENTIN 300 MG CAP PO SCH (21:20)
[2024-04-16] MEDS: ATORVASTATIN 20 MG TAB PO SCH (21:20)
[2024-04-17 01:00] VITALS: BP 99/60; PULSE 60; RESP 13; TEMP 98.1; O2SAT 96
[2024-04-17 04:23] VITALS: BP 103/63; PULSE 66; RESP 12; TEMP 98; O2SAT 98
[2024-04-17 08:00] VITALS: PULSE 60; RESP 16; O2SAT 98
[2024-04-17 08:58] VITALS: BP 104/54; PULSE 60; RESP 16; TEMP 97.5; O2SAT 98
[2024-04-17] MEDS: levoFLOXacin 500MG 100 ML IV SCH (10:00)
[2024-04-17 10:12] VITALS: O2SAT 95
[2024-04-17 10:53] LABS: Alanine Aminotransferase 16 U/L (7-40); Albumin 3.9 g/dL (3.2-4.8); Alkaline Phosphatase 102 U/L (46-116); Anion Gap 8 (5-15); BUN/Creatinine Ratio 23.2 (10.0-20.0); Blood Urea Nitrogen 22 mg/dL (9-23); Carbon Dioxide 27 mmol/L (20-31); Glucose 95 mg/dL (74-106); Sodium 142 mmol/L (136-145)
[2024-04-17 10:54] LABS: Bilirubin, Total 0.5 mg/dL (0.2-1.0); Total Protein 6.1 g/dL (5.7-8.2)
[2024-04-17 11:00] LABS: Basophils # (auto) 0.1 10 ^3/uL (0-0.2); Basophils % (auto) 0.8 % (0.0-2.0); Eosinophils # (auto) 0.1 10 ^3/uL (0-0.8); Lymphocytes # (auto) 1.2 10 ^3/uL (0.4-5.4); Mean Corpuscular Hgb Conc. 33.1 g/dL (32.0-36.0); Monocytes # (auto) 0.5 10 ^3/uL (0-1.3)
[2024-04-17] MEDS: LISINOPRIL 5 MG TAB PO SCH (11:00)
[2024-04-17 11:05] LABS: Aspartate Aminotransferase 12 U/L (13-40); Chloride 107 mmol/L (98-107); Eosinophils % (auto) 1.8 % (0.0-7.0); Hematocrit 38.3 % (36.0-46.0); Hemoglobin 12.7 g/dL (12.2-16.2); Lymphocytes % (auto) 19.4 % (10.0-50.0); Mean Corpuscular Volume 78.5 fL (80.0-100.0); Monocytes % (auto) 8.3 % (0.0-12.0); Neutrophils # (auto) 4.2 10 ^3/uL (1.6-8.6); Neutrophils % (auto) 69.7 % (37.0-80.0); Platelet Count (auto) 193 10^3/uL (140-450); Potassium 3.5 mmol/L (3.5-5.1); Red Blood Cells 4.87 10^6/uL (4.0-5.20)
--- NOTE | 2024-04-17 20:46 | DVHDSRES ---
Discharge Summary Date of Admission Resident Creating Document: MENDEZ MORALES RESDIENT Apr 16, 2024 at 02:29 Date of Discharge: Apr 17, 2024 Admitting Diagnosis Shortness of breaths Labs/Diagnostic Data: Laboratory Results Test 04/17/24 09:44 04/16/24 08:34 04/16/24 02:29 04/15/24 21:04 White Blood Count 6.0 10^3/uL (4.4-10.8) Red Blood Count 4.87 10^6/uL (4.0-5.20) Hemoglobin 12.7 g/dL (12.2-16.2) Hematocrit 38.3 % (36.0-46.0) Mean Corpuscular Volume 78.5 fL (80.0-100.0) Mean Corpuscular Hemoglobin 26.0 pg (28.0-32.0) Mean Corpuscular Hemoglobin Concent 33.1 g/dL (32.0-36.0) Red Cell Distribution Width 16.0 % (11.8-14.3) Platelet Count 193 10^3/uL (140-450) Mean Platelet Volume 8.7 fL (6.9-10.8) Neutrophils (%) (Auto) 69.7 % (37.0-80.0) Lymphocytes (%) (Auto) 19.4 % (10.0-50.0) Monocytes (%) (Auto) 8.3 % (0.0-12.0) Eosinophils (%) (Auto) 1.8 % (0.0-7.0) Basophils (%) (Auto) 0.8 % (0.0-2.0) Neutrophils # (Auto) 4.2 10 ^3/uL (1.6-8.6) Lymphocytes # (Auto) 1.2 10 ^3/uL (0.4-5.4) Monocytes # (Auto) 0.5 10 ^3/uL (0-1.3) Eosinophils # (Auto) 0.1 10 ^3/uL (0-0.8) Basophils # (Auto) 0.1 10 ^3/uL (0-0.2) Nucleated Red Blood Cells 0.0 % Sodium Level 142 mmol/L (136-145) Potassium Level 3.5 mmol/L (3.5-5.1) Chloride Level 107 mmol/L (98-107) Carbon Dioxide Level 27 mmol/L (20-31) Anion Gap 8 (5-15) Blood Urea Nitrogen 22 mg/dL (9-23) Creatinine 0.95 mg/dL (0.550-1.02) Glomerular Filtration Rate Calc 67 mL/min (>90) BUN/Creatinine Ratio 23.2 (10.0-20.0) Serum Glucose 95 mg/dL (74-106) Calcium Level 10.0 mg/dL (8.7-10.4) Total Bilirubin 0.5 mg/dL (0.2-1.0) Aspartate Amino Transferase (AST) 12 U/L (13-40) Alanine Aminotransferase (ALT) 16 U/L (7-40) Alkaline Phosphatase 102 U/L (46-116) Total Protein 6.1 g/dL (5.7-8.2) Albumin 3.9 g/dL (3.2-4.8) Influenza Type A Antigen Negative (Negative) Influenza Type B Antigen Negative (Negative) SARS-CoV-2 Antigen (Rapid) Negative (NEGATIVE) Urine Color Colorless (Yellow) Urine Clarity Clear (Clear) Urine pH 6.0 (5.0-9.0) Urine Specific [place] 1.004 (1.001-1.035) Urine Protein Negative (Negative) Urine Ketones Negative (Negative) Urine Blood Negative /uL (Negative) Urine Nitrite Negative (Negative) Urine Bilirubin Negative (Negative) Urine Urobilinogen Normal mg/dL (Negative) Urine Leukocyte Esterase Negative /uL (Negative) Urine RBC <1 /hpf (0 - 4) Urine WBC <1 /hpf (0 - 5) Urine Squamous Epithelial Cells Few /hpf (<5) Urine Bacteria None seen /hpf (None Seen) Urine Glucose Normal mg/dL (Normal) Urine Opiates Screen Neg (NEGATIVE) Urine Fentanyl Screen Neg (NEGATIVE) Urine Barbiturates Screen Neg (NEGATIVE) Urine Phencyclidine Screen Neg (NEGATIVE) Urine Amphetamines Screen Neg (NEGATIVE) Urine Benzodiazepines Screen Neg (NEGATIVE) Urine Cocaine Screen Neg (NEGATIVE) Urine Cannabinoids Screen Neg (NEGATIVE) Troponin I High Sensitivity < 3 ng/L (</=34) B-Type Natriuretic Peptide 21.08 pg/mL (0-100) Other Laboratory Tests 04/17/24 09:44 Brief Hx & Hospital Course: Patient is a 64-year-old female with a past medical history of asthma, hypertension, CKD stage 3, arthritis, and depression, who came to the ED with a chief complaint of shortness of breath for the past 2 days. The patient reported that since Sunday, she has been experiencing increasing shortness of breath but did not have any flu-like symptoms such as cough, cold, congestion, fever, or chills. The patient denied chest pain and palpitations. She does not use oxygen at home. The patient was admitted in February for a similar complaint of shortness of breath and was sent home on oral doxycycline for 5 days. Since that hospitalization, the patient reports she was doing well until Sunday when she started having shortness of breath. Past medical history: Asthma, hypertension, CKD stage 3, arthritis, depression, history of DVT Past surgical history: Surgery for carpal tunnel syndrome, bilateral total knee replacement Social history: Patient lives with her friend and denies smoking, alcohol, or drug use Home medications: Patient was not able to provide her current list of medications as she does not remember, but according to the records, she is on albuterol inhaler, escitalopram 20 mg, fluticasone-salmeterol inhaler, gabapentin 300 mg b.i.d., lisinopril 5 mg, and trazodone 100 mg q.h.s. Hospital course: Chest x-ray shows bilaterally increased pulmonary vascular marking with bilateral ground-glass opacity, influenza type a B and COVID-19 were negative. Patient was put on acute COPD exacerbation and possible atypical pneumonia patient was given empiric antibiotic of levofloxacin, prednisone, nebulized, and incentive spirometry. Home medication for the hypertension, and depression were continued during hospitalization. Electrolyte imbalance including hypokalemia were repleted. On 04/17, the patient left AMA. Consults/Reason for consult Operations or Procedures [address] [address] Ph: [phone] DIAGNOSTIC IMAGING Diagnostic Imaging Report : [id number] Signed PATIENT: DAVID ARCHIBALD ACCT: [id number] UNIT: [id number] : 1960 LOC: ER ROOM / BED: / AGE / SEX: 64 / F ADM STATUS: REG ER SERVICE 45 ORDERING PHYSICIAN: NATO BOWEN MD PROCEDURE(s): CXRP - CHEST PORTABLE REASON: SOB ORDER NUMBER(s): [id number], ACCESSION NUMBER(s): [id number] CHEST RADIOGRAPH Indication: SOB Technique: Single frontal view of the chest was obtained Comparison: XY CHEST PORTABLE on DOS: 03/05/24, XY CHEST PORTABLE on DOS: 03/04/24, XY CHEST PORTABLE on DOS: 12/18/23 FINDINGS: Lines and Tubes: None Lungs: No focal consolidation. Linear densities of the left mid and lower lung zone. Pleura: No effusion. No pneumothorax. Cardiomediastinal contours: Unremarkable Bones: No acute osseous abnormality. Clips are noted in the right paratracheal stripe region. IMPRESSION: Left mid and lower lung zone linear atelectasis /scarring. Otherwise, no evidence of acute cardiopulmonary disease. ATED BY: MICHELLE UMANA DO DICTATED DATE/TIME: 04/15/242105 SIGNED BY: MICHELLE UMANA DO SIGNED DATE/TIME: 04/15/242105 CC: [place] [id number] Ph: [phone] DIAGNOSTIC IMAGING Diagnostic Imaging Report : [id number] Signed PATIENT: DAVID ARCHIBALD ACCT: [id number] UNIT: [id number] : 1960 LOC: OVERFLOW ROOM / BED: [address] [place] [address] AGE / SEX: 64 / F ADM STATUS: ADM IN SERVICE 2 ORDERING PHYSICIAN: LEÓN DEY RESIDENT PROCEDURE(s): BLDVT - BiLat Lower DVT REASON: rule out DVT ORDER NUMBER(s): [id number], ACCESSION NUMBER(s): [id number] Bilateral lower extremity venous duplex Clinical History: rule out DVT Comparison: None Technique: Duplex Doppler evaluation of the deep venous systems of both lower extremities from the common femoral veins to the popliteal veins including color Doppler and spectral/pulsed waveform analysis was performed. Findings: RIGHT SIDE: The common femoral vein demonstrates appropriate compressibility and waveform variability. There is compressibility/patency of the great saphenous vein at the proximal thigh. The femoral vein demonstrates appropriate compressibility and waveform variability. The deep femoral vein demonstrates appropriate compressibility and waveform variability. The popliteal vein demonstrates appropriate compressibility and waveform variability. There is color flow at the tibioperoneal trunk and in the posterior tibial vein. LEFT SIDE: The common femoral vein demonstrates appropriate compressibility and waveform variability. There is compressibility/patency of the great saphenous vein at the proximal thigh. The femoral vein demonstrates appropriate compressibility and waveform variability. The deep femoral vein demonstrates appropriate compressibility and waveform variability. The popliteal vein demonstrates appropriate compressibility and waveform variability. There is color flow at the tibioperoneal trunk and in the posterior tibial vein. Impression: 1. No right or left femoropopliteal venous thrombosis. ATED BY: KETURAH CARDENAS MD DICTATED DATE/TIME: 04/16/24740 SIGNED BY: KETURAH CARDENAS MD SIGNED DATE/TIME: 04/16/24740 CC: Condition at Discharge: Good Final Diagnosis/Problems List Acute exacerbation of asthma /COPD Pneumonia, likely due to Gram-positive Gram-negative bacteria acute pneumonitis Acute respiratory distress , likely due to pneumonia Possible acute on chronic diastolic heart failure Depression Hypertension HENRI, on CKD grade 1, likely VMN Hypertensive heart disease Dyslipidemia History of DVT ruled out hypoxic respiratory failure Discharge Disposition: AMA Discharge Statement: "Patient was advised to return to the ER or call 911 if any headaches, dizziness, shortness of breath, chest pain, abdominal pain, bleeding, fevers, or worsening of medical condition. Patient was counseled about treatment plan, medications, possible side effects, patientverbalized understanding. All questions were answered to the best of my ability. This discharge took greater then 30 minutes in planning, reviewing documentation, counseling the patient, and discussing with other team members." ASSESSMENT ASSESSMENT Assessment Date of Service: Apr 17, 2024 Billing Provider: FRANKIE GA MD Common Visit Codes: 98959-FIG/OBS DISCH DAY >30min MENDEZ MORALES RESDIENT Apr 17, 2024 20:46 FRANKIE GA MD Apr 24, 2024 09:31
== END 2024-04-17 11:40 | disposition left against medical advice (07) | DRG 137 ==
LOC: ER 20:38 → EDUNIT# 20:38 → EDBD 20:38 → OVERFLOW 04-16 02:29 → WEST WING 04-16 10:39
PROVIDERS: ADMIT Internal Medicine; ATTEND Internal Medicine
DX: J15.69 Pneumonia due to other Gram-negative bacteria (principal); N17.0 Acute kidney failure with tubular necrosis; I50.33 Acute on chronic diastolic (congestive) heart failure; I13.0 Hypertensive heart and chronic kidney disease with heart failure and stage 1 through stage 4 chronic kidney disease, or unspecified chronic kidney disease; J44.0 Chronic obstructive pulmonary disease with (acute) lower respiratory infection; J15.9 Unspecified bacterial pneumonia; J45.901 Unspecified asthma with (acute) exacerbation; J44.1 Chronic obstructive pulmonary disease with (acute) exacerbation; Z53.29 Procedure and treatment not carried out because of patient's decision for other reasons; N18.30 Chronic kidney disease, stage 3 unspecified; J98.4 Other disorders of lung; E78.5 Hyperlipidemia, unspecified; F32.A Depression, unspecified; E87.6 Hypokalemia; Z96.653 Presence of artificial knee joint, bilateral; Z90.710 Acquired absence of both cervix and uterus; Z86.718 Personal history of other venous thrombosis and embolism; Z79.899 Other long term (current) drug therapy; R06.03 Acute respiratory distress
CPT/HCPCS: 36415; 71045; 80053; 80307; 81001; 83880; 84484; 85025; 87081; 87426; 87804; 93005; 93970; 94640; G0378

== ENCOUNTER 2024-04-25 14:12 | Emergency (ER) | payer MEDICAID ==
[~2024-04-25] VITALS: Ht 152.4 cm; Wt 72.7 kg
[~2024-04-25 14:12] MED LIST changes: +ALBU0.084 NEB; +AZIT500T66 PO; +PRED20TA2 PO
--- NOTE | 2024-04-25 14:39 | ED.PDOC ---
History of Present Illness HPI Comments 64F BIBA w/ prior Hx of Anxiety, and asthma which all may be associated to the c/c of SOB. Pt reports that she has been having the same symptoms from when she was last here in the ER on 04/15/24 and that it "it has not gone away". PMHx of Arthritis, CKF, Depression, High Lipids, HTN and UTI. SHx of Appendectomy, Hysterectomy and Tubal Ligation. Denies chills, fever, N/V/D, CP or other associated symptom's, modifiers, or recent injuries or sick contact at this time. Time Seen by MD: 14:30 Primary Care Provider: ISRAEL Reviewed Notes: Nurses Notes, Harp Maker Notes, Medications, Allergies Allergies: Coded Allergies: Sulfa Antibiotics (Verified Allergy, Unknown, 09/16/23) Home Meds Active Scripts Prednisone (Prednisone) 20 Mg Tab, 20 MG PO BID for 5 Days, #10 TAB Prov:NATO BOWEN MD 04/15/24 Azithromycin (Azithromycin) 500 Mg Tab, 1 TAB PO DAILY for 7 Days, #7 TAB Prov:NATO BOWEN MD 04/15/24 Albuterol Sulfate (Albuterol Sulfate Hfa) 108 Mcg/Act Aer, 108 MCG IN Q6HP PRN for 10 Days, #1 AER Prov:NATO BOWEN MD 04/15/24 Albuterol Sulfate (Albuterol Sulfate) 0.083 % Neb, 1 VIAL NEB Q4HPRN PRN for 20 Days, #50 VIAL Prov:NATO BOWEN MD 04/15/24 Doxycycline (Monohydrate) (Doxycycline) 100 Mg Cap, 100 MG PO BID for 5 Days, #10 CAP Prov:BLU NERI IMPLEMENTATION ADVISOR 03/05/24 Levofloxacin Hemihydrate (LEVAQUIN 500 MG) 500 Mg Tab, 500 MG PO DAILY for 7 Days, #7 TAB Prov:TRINO DURBIN MD 02/12/24 Acetaminophen (Acetaminophen) 500 Mg Tab, 500 MG PO Q4HP PRN, #30 TAB Prov:JANE BYRNE PAC 01/25/24 Midodrine HCl (Midodrine HCl) 10 Mg Tab, 10 MG PO TID for 14 Days, #42 TAB Prov:RAJ MILLIGAN IMPLEMENTATION ADVISOR 12/20/23 Azithromycin (Azithromycin) 250 Mg Tab, 250 MG PO DAILY MDD 500 for 5 Days, #6 TAB 0 Refills 2 TABLETS ORALLY ON DAY ONE, THEN 1 TABLET ORALLY DAILY FOR 4 DAYS Prov:RAJ MILLIGAN Jaz IMPLEMENTATION ADVISOR 12/20/23 Pantoprazole Sodium Sesquihydr (Protonix) 40 Mg Tab, 40 MG PO DAILY for 30 Days, #30 TAB Prov:JOSE MULLINS DO 01/29/23 Reported Medications Valbenazine Tosylate (Ingrezza) 80 Mg Cap, 80 MG PO QPM, CAP 06/08/22 Atorvastatin Calcium (ATORVASTATIN CALCIUM) 40 Mg Tab, 1 TAB PO DAILY, #30 TAB 5 Refills 06/08/22 Ferrous Sulfate (Ferrous Sulfate) 325 Mg Tab, 325 MG PO TIDWM for 30 Days 06/08/22 Apixaban Base (ELIQUIS) 5 Mg Tab, 5 MG PO BID, TAB 06/08/22 Hydrochlorothiazide (Hydrochlorothiazide) 25 Mg Tab, 25 MG PO QAM for 30 Days, MG 06/08/22 Gabapentin (Gabapentin) 300 Mg Cap, 300 MG PO BID for 30 Days, MG 06/08/22 Oxycodone W/ Acetaminophen (Percocet 5/325MG) 1 Tab Tb, 1 TAB PO DAILY, TAB 09/17/20 Diclofenac Sodium (Topical) (Diclofenac Sodium) 1 % Gel, 1 % TD PRN, GEL 03/12/19 Fluticasone-Salmeterol (Advair Hfa 115-21 Mcg/Act) 1 Aer Aer, 1 AER IN PRN, AER 03/12/19 Albuterol Sulfate (Albuterol Sulfate Hfa) 108 Mcg/Act Aer, 108 MCG IN PRN, AER 03/12/19 Escitalopram Oxalate (ESCITALOPRAM OXALATE) 20 Mg Tab, 1 TAB PO DAILY, #30 TAB 5 Refills 03/12/19 Pramipexole Dihydrochloride (Pramipexole Dihydrochlori) 4.5 Mg Tab, 4.5 MG PO DAILY, TAB 03/12/19 Lisinopril (Lisinopril) 5 Mg Tab, 5 MG PO DAILY for 30 Days, MG 03/12/19 Trazodone Hcl (Trazodone Hcl) 100 Mg Tab, 100 MG PO HS, MG 03/12/19 Montelukast Sodium (MONTELUKAST SODIUM) 10 Mg Tab, 1 TAB PO HS, #30 TAB 5 Refills 03/12/19 Information Source: Patient Mode of Arrival: EMS Severity: Moderate Timing: Days Duration: Since onset, Days Prehospital treatment: None Past Medical History PAST MEDICAL HISTORY: Anxiety, Arthritis, Asthma, CKF, Depression, High Lipids, HTN, UTI'S Surgical History: Appendectomy, Hysterectomy, Tubal Ligation JEWELRY CASTING MODEL MAKER History: No Pertinent JEWELRY CASTING MODEL MAKER History Family History Family History: Reviewed,noncontributory to illness, Unknown Social History Smoker: Non-Smoker Alcohol: Denies ETOH Use Drugs: Denies Drug Use Lives In: Home Constitutional: denies: chills, diaphoresis, fatigue, fever, malaise, sweats, weakness, others EENTM: denies: blurred vision, double vision, ear bleeding, ear discharge, ear drainage, ear pain, ear ringing, eye pain, eye redness, hearing loss, mouth pain, mouth swelling, nasal discharge, nose bleeding, nose congestion, nose pain, photophobia, tearing, throat pain, throat swelling, voice changes, others Respiratory: reports: shortness of breath; denies: cough, hemoptysis, orthopn ea, SOB at rest, SOB with excertion, stridor, wheezing, others Cardiovascular: reports: chest pain; denies: dizzy spells, diaphoresis, Dyspnea on exertion, edema, irregular heart beat, left arm pain, lightheadedness, palpitations, PND, syncope, others Gastrointestinal: denies: abdomen distended, abdominal pain, blood streaked bowels, constipated, diarrhea, dysphagia, difficulty swallowing, hematemesis, melena, nausea, poor appetite, poor fluid intake, rectal bleeding, rectal pain, vomiting, others Genitourinary: denies: abnormal vagina bleeding, burning, dyspareunia, dysuria, flank pain, frequency, hematuria, incontinence, pain, , vagina discharge, urgency, others Neurological: denies: dizziness, fainting, headache, left sided numbness, left sided weakness, numbness, paresthesia, pre-existing deficit, right sided numbness, right sided weakness, seizure, speech problems, tingling, tremors, weakness, others Musculoskeletal: denies: back pain, gout, joint pain, joint swelling, muscle pain, muscle stiffness, neck pain, others Integumetry: denies: bruises, change in color, change in hair/nails, dryness, laceration, lesions, lumps, rash, wounds, others Allergic/Immunocompromised: denies: Difficulty Healing, Frequent Infections, Hives, Itching, others Hematologic/Lymphatic: denies: anemia, blood clots, easy bleeding, easy bruising, swollen glands, others Endocrine: denies: excessive hunger, excessive sweating, excessive thirst, excessive urination, flushing, intolerance to cold, intolerance to heat, unexplained weight gain, unexplained weight loss, others Psychiatric: denies: anxiety, bipolar disorder, depression, hopeless, panic disorder, schizophrenia, sleepless, suicidal, others All Other Systems: Reviewed and Negative Physical Exam General Appearance: No Apparent Distress, Normal HEENT: Normal ENT Inspection, Pharynx Normal, TMs Normal Neck: Full Range of Motion, Non-Tender, Normal, Normal Inspection Respiratory: Chest Non-Tender, Lungs Clear, No Accessory Muscle Use, No Respiratory Distress, Normal Breath Sounds Cardiovascular: No Edema, No JVD, No Murmur, No Gallop, Normal Peripheral Pulses, Regular Rate/Rhythm Breast Exam: Deferred Gastrointestinal: No Organomegaly, Non Tender, No Pulsatile Mass, Normal Bowel Sounds, Soft Genitalia: Deferred Pelvic: Deferred Rectal: Deferred Extremities: No calf tenderness, Normal capillary refill, Normal inspection, Normal range of motion, Non-tender, No pedal edema Musculoskeletal : Apperance: Normal Neurologic: Alert, newspaper correspondent II-XII nml as Tested, No Motor Deficits, Normal Affect, Normal Mood, No Sensory Deficits Cerebellar Function: Normal Reflexes: Normal Skin: Dry, Normal Color, Warm Lymphatic: No Adenopathy Was a procedure done? Was a procedure done?: No EKG EKG : Pulse Rate (adult): 93 Cyclone: Normal Cardiac Rhythm: NSR Block: None Hypertrophy: None ST: Normal Differential Dx Considerations may include: asthma exacerbation, pneumonia, anxiety, chf X-Ray, Labs, Meds, VS Vital Signs Date Time Temp Pulse Resp B/P (MAP) Pulse Ox O2 Delivery O2 Flow Rate FiO2 04/25/24 14:26 99.9 102 18 120/74 (89) 95 04/25/24 14:26 18 Room Air 0 04/25/24 14:16 93 Time of 1ST Reevaluation: 15:00 Reevaluation 1ST: Unchanged Patient Education/Counseling: Diagnosis, Treatment, Prognosis, Need For Follow Up Family Education/Counseling: No Family Present Additional Information - I reviewed the following notes from patient's past medical encounters:04/15/24 - The following tests were ordered, and results were reviewed by me: Labs, X- Ray, EKG - Additional information was gathered from interviewing the following independent Historian: EMT - I reviewed and agreed with the following test results read by other provider: X-ray - I discussed treatments and results with medical personnel pt was anxious and now appears calm. her exam is normal hr vss are normal. she has had the same symptoms for weeks and was admitted but with continual symp toms. cxr is unremarkable. she is stable for discharge Departure 1 Departure Time of Disposition: 15:56 Impression: Primary Impression: Acute anxiety Disposition: HOME / SELF CARE / HOMELESS Condition: Good e-Prescriptions Alprazolam (Xanax) 0.25 Mg Tb 1 TAB PO DAILY for 3 Days, #3 TAB Prov: ELDA STYLES MD 04/25/24 Discharged With: Self Critical Care Note Critical Care Time?: No Stability Stability form required: No I personally scribed for ELDA STYLES MD ([email or web address]) on 04/25/24 at 14:39. Electronically submitted by Rudy Bradley ([email or web address]). ELDA STYLES MD Apr 25, 2024 14:39
--- NOTE | 2024-04-25 14:52 | DVH ---
CHEST RADIOGRAPH Indication: cp Technique: Single frontal view of the chest was obtained Comparison: XY CHEST PORTABLE on DOS: 04/15/24, XY CHEST PORTABLE on DOS: 03/05/24, XY CHEST PORTABLE on DOS: 03/04/24 FINDINGS: Lines and Tubes: None Lungs: No focal consolidation. Mild elevation of the right hemidiaphragm. Pleura: No effusion. No pneumothorax. Cardiomediastinal contours: Unremarkable Bones: No acute osseous abnormality. Surgical clips are noted over the right lower neck and right upp er mediastinum IMPRESSION: No acute cardiopulmonary disease.
[2024-04-25] MEDS ORDERED: ALPR0.25 PO (15:57)
[2024-04-25 16:40] VITALS: BP 133/86; PULSE 90; RESP 18; TEMP 98.9; O2SAT 94
--- NOTE | 2024-04-25 18:49 | ECG ---
[facility] Test Date: 2024-04-25 Test Time: 14:16:49 Pat Name: DAVID ARCHIBALD Department: ED Room: Gender: F Breakfast Hostess: BENSON : 1960 Requested By: ELDA STYLES Order Number: [id number] Reading MD: Measurements Intervals [place] Rate: 93 P: 55 CO: 142 QRS: 36 QRSD: 73 T: 24 QT: 341 QTc: 425 Interpretive Statements Sinus rhythm Consider right atrial enlargement Low voltage, precordial leads Please click the below link to view image of tracing.
== END 2024-04-25 16:44 | disposition home or self-care (01) ==
LOC: ER 14:12 → EDBD 14:12 → ER 16:44
DX: F41.9 Anxiety disorder, unspecified (principal); I12.9 Hypertensive chronic kidney disease with stage 1 through stage 4 chronic kidney disease, or unspecified chronic kidney disease; N18.9 Chronic kidney disease, unspecified; F32.A Depression, unspecified; E78.5 Hyperlipidemia, unspecified; J45.909 Unspecified asthma, uncomplicated; M19.90 Unspecified osteoarthritis, unspecified site; Z90.49 Acquired absence of other specified parts of digestive tract; Z90.710 Acquired absence of both cervix and uterus; Z98.890 Other specified postprocedural states; Z88.2 Allergy status to sulfonamides; Z79.01 Long term (current) use of anticoagulants; Z79.51 Long term (current) use of inhaled steroids; Z79.52 Long term (current) use of systemic steroids; Z79.899 Other long term (current) drug therapy
CPT/HCPCS: 71045; 93005

== ENCOUNTER 2024-04-25 16:45 | Emergency (ER) | payer MEDICAID ==
[~2024-04-25] VITALS: Ht 149.9 cm; Wt 69.1 kg
[~2024-04-25 16:45] MED LIST changes: +ALPR0.25 PO
--- NOTE | 2024-04-25 17:58 | ED.PDOC ---
History of Present Illness HPI Comments 64F was discharged and did not want to go home so she checked back into the hospital. "64F BIBA w/ prior Hx of Anxiety, and asthma which all may be associated to the c/c of SOB. Pt reports that she has been having the same symptoms from when she was last here in the ER on 04/15/24 and that it "it has not gone away". PMHx of Arthritis, CKF, Depression, High Lipids, HTN and UTI. SHx of Appendectomy, Hysterectomy and Tubal Ligation. Denies chills, fever, N/V/D, CP or other associated symptom's, modifiers, or recent injuries or sick contact at this time." Chief Complaint: Shortness of Breath Time Seen by MD: 17:00 Primary Care Provider: ISRAEL Covarrubias Notes: Nurses Notes, Medications, Allergies Allergies: Coded Allergies: Sulfa Antibiotics (Verified Allergy, Unknown, 09/16/23) Home Meds Active Scripts Alprazolam (Xanax) 0.25 Mg Tb, 1 TAB PO DAILY for 3 Days, #3 TAB Prov:ELDA STYLES MD 04/25/24 Prednisone (Prednisone) 20 Mg Tab, 20 MG PO BID for 5 Days, #10 TAB Prov:NATO BOWEN MD 04/15/24 Azithromycin (Azithromycin) 500 Mg Tab, 1 TAB PO DAILY for 7 Days, #7 TAB Prov:NATO BOWEN MD 04/15/24 Albuterol Sulfate (Albuterol Sulfate Hfa) 108 Mcg/Act Aer, 108 MCG IN Q6HP PRN for 10 Days, #1 AER Prov:NATO BOWEN MD 04/15/24 Albuterol Sulfate (Albuterol Sulfate) 0.083 % Neb, 1 VIAL NEB Q4HPRN PRN for 20 Days, #50 VIAL Prov:NATO BOWEN MD 04/15/24 Doxycycline (Monohydrate) (Doxycycline) 100 Mg Cap, 100 MG PO BID for 5 Days, #10 CAP Prov:BLU NERI NP 03/05/24 Levofloxacin Hemihydrate (LEVAQUIN 500 MG) 500 Mg Tab, 500 MG PO DAILY for 7 Days, #7 TAB Prov:TRINO DURBIN MD 02/12/24 Acetaminophen (Acetaminophen) 500 Mg Tab, 500 MG PO Q4HP PRN, #30 TAB Prov:JANE BYRNE PAC 01/25/24 Midodrine HCl (Midodrine HCl) 10 Mg Tab, 10 MG PO TID for 14 Days, #42 TAB Prov:RAJ MILLIGAN LEAD MEDICAL TECHNOLOGIST 12/20/23 Azithromycin (Azithromycin) 250 Mg Tab, 250 MG PO DAILY MDD 500 for 5 Days, #6 TAB 0 Refills 2 TABLETS ORALLY ON DAY ONE, THEN 1 TABLET ORALLY DAILY FOR 4 DAYS Prov:RAJ MILLIGAN LEAD MEDICAL TECHNOLOGIST 12/20/23 Pantoprazole Sodium Sesquihydr (Protonix) 40 Mg Tab, 40 MG PO DAILY for 30 Days, #30 TAB Prov:JOSE MULLINS DO 01/29/23 Reported Medications Valbenazine Tosylate (Ingrezza) 80 Mg Cap, 80 MG PO QPM, CAP 06/08/22 Atorvastatin Calcium (ATORVASTATIN CALCIUM) 40 Mg Tab, 1 TAB PO DAILY, #30 TAB 5 Refills 06/08/22 Ferrous Sulfate (Ferrous Sulfate) 325 Mg Tab, 325 MG PO TIDWM for 30 Days 06/08/22 Apixaban Base (ELIQUIS) 5 Mg Tab, 5 MG PO BID, TAB 06/08/22 Hydrochlorothiazide (Hydrochlorothiazide) 25 Mg Tab, 25 MG PO QAM for 30 Days, MG 06/08/22 Gabapentin (Gabapentin) 300 Mg Cap, 300 MG PO BID for 30 Days, MG 06/08/22 Oxycodone W/ Acetaminophen (Percocet 5/325MG) 1 Tab Tb, 1 TAB PO DAILY, TAB 09/17/20 Diclofenac Sodium (Topical) (Diclofenac Sodium) 1 % Gel, 1 % TD PRN, GEL 03/12/19 Fluticasone-Salmeterol (Advair Hfa 115-21 Mcg/Act) 1 Aer Aer, 1 AER IN PRN, AER 03/12/19 Albuterol Sulfate (Albuterol Sulfate Hfa) 108 Mcg/Act Aer, 108 MCG IN PRN, AER 03/12/19 Escitalopram Oxalate (ESCITALOPRAM OXALATE) 20 Mg Tab, 1 TAB PO DAILY, #30 TAB 5 Refills 03/12/19 Pramipexole Dihydrochloride (Pramipexole Dihydrochlori) 4.5 Mg Tab, 4.5 MG PO DAILY, TAB 03/12/19 Lisinopril (Lisinopril) 5 Mg Tab, 5 MG PO DAILY for 30 Days, MG 03/12/19 Trazodone Hcl (Trazodone Hcl) 100 Mg Tab, 100 MG PO HS, MG 03/12/19 Montelukast Sodium (MONTELUKAST SODIUM) 10 Mg Tab, 1 TAB PO HS, #30 TAB 5 Refills 03/12/19 Information Source: Patient Mode of Arrival: Ambulatory Severity: Moderate Duration: Since onset Prehospital treatment: None Past Medical History PAST MEDICAL HISTORY: Anxiety, Arthritis, Asthma, CKF, Depression, High Lipids, HTN, UTI'S Surgical History: Appendectomy, Hysterectomy, Tubal Ligation ANIMAL SHELTER MANAGER History: No Pertinent ANIMAL SHELTER MANAGER History Family History Family History: Reviewed,noncontributory to illness, Unknown Social History Smoker: Non-Smoker Alcohol: Denies ETOH Use Drugs: Denies Drug Use Lives In: Home Constitutional: reports: others; denies: chills, diaphoresis, fatigue, fever, malaise, sweats, weakness EENTM: denies: blurred vision, double vision, ear bleeding, ear discharge, ear drainage, ear pain, ear ringing, eye pain, eye redness, hearing loss, mouth pain, mouth swelling, nasal discharge, nose bleeding, nose congestion, nose pain, photophobia, tearing, throat pain, throat swelling, voice changes, others Respiratory: reports: shortness of breath; denies: cough, hemoptysis, orthopnea, SOB at rest, SOB with excertion, stridor, wheezing, others Cardiovascular: denies: chest pain, dizzy spells, diaphoresis, Dyspnea on exertion, edema, irregular heart beat, left arm pain, lightheadedness, palpitations, PND, syncope, others Gastrointestinal: denies: abdomen distended, abdominal pain, blood streaked bowels, constipated, diarrhea, dysphagia, difficulty swallowing, hematemesis, melena, nausea, poor appetite, poor fluid intake, rectal bleeding, rectal pain, vomiting, others Genitourinary: denies: abnormal vagina bleeding, burning, dyspareunia, dysuria, flank pain, frequency, hematuria, incontinence, pain, , vagina discharge, urgency, others Neurological: denies: dizziness, fainting, headache, left sided numbness, left sided weakness, numbness, paresthesia, pre-existing deficit, right sided numbness, right sided weakness, seizure, speech problems, tingling, tremors, weakness, others Musculoskeletal: denies: back pain, gout, joint pain, joint swelling, muscle pain, muscle stiffness, neck pain, others Integumetry: denies: bruises, change in color, change in hair/nails, dryness, laceration, lesions, lumps, rash, wounds, others Allergic/Immunocompromised: denies: Difficulty Healing, Frequent Infections, Hives, Itching, others Hematologic/Lymphatic: denies: anemia, blood clots, easy bleeding, easy bruising, swollen glands, others Endocrine: denies: excessive hunger, excessive sweating, excessive thirst, excessive urination, flushing, intolerance to cold, intolerance to heat, unexplained weight gain, unexplained weight loss, others Psychiatric: denies: anxiety, bipolar disorder, depression, hopeless, panic disorder, schizophrenia, sleepless, suicidal, others All Other Systems: Reviewed and Negative Physical Exam General Appearance: No Apparent Distress, Normal HEENT: Normal ENT Inspection, Pharynx Normal, TMs Normal Neck: Full Range of Motion, Non-Tender, Normal, Normal Inspection Respiratory: Chest Non-Tender, Lungs Clear, No Accessory Muscle Use, No Respiratory Distress, Normal Breath Sounds Cardiovascular: No Edema, No JVD, No Murmur, No Gallop, Normal Peripheral Pulses, Regular Rate/Rhythm Breast Exam: Deferred Gastrointestinal: No Organomegaly, Non Tender, No Pulsatile Mass, Normal Bowel Sounds, Soft Genitalia: Deferred Pelvic: Deferred Rectal: Deferred Extremities: No calf tenderness, Normal capillary refill, Normal inspection, Normal range of motion, Non-tender, No pedal edema Musculoskeletal : Apperance: Normal Neurologic: Alert, mixer runner II-XII nml as Tested, No Motor Deficits, Normal Affect, Normal Mood, No Sensory Deficits Cerebellar Function: Normal Reflexes: Normal Skin: Dry, Normal Color, Warm Lymphatic: No Adenopathy Was a procedure done? Was a procedure done?: No Differential Dx Considerations may include: pneumonia, chf, copd exacerbation, anxiety, acs X-Ray, Labs, Meds, VS Vital Signs Date Time Temp Pulse Resp B/P (MAP) Pulse Ox O2 Delivery O2 Flow Rate FiO2 04/25/24 17:10 98.3 97 23 138/70 (92) 96 Time of 1ST Reevaluation: 17:30 Reevaluation 1ST: Unchanged Patient Education/Counseling: Diagnosis, Treatment, Prognosis, Need For Follow Up Family Education/Counseling: No Family Present Additional Information - I reviewed the following notes from patient's past medical encounters:04/25/24 - I discussed treatments and results with medical personnel pt remains very comfortable. exam is unchanged. she i stable for discharge Departure 1 Departure Time of Disposition: 18:14 Impression: Primary Impression: Acute anxiety Disposition: 01 HOME / SELF CARE / HOMELESS Condition: Good Discharged With: Self Critical Care Note Critical Care Time?: No Stability Stability form required: No I personally scribed for ELDA STYLES MD ([email or web address]) on 04/25/24 at 17:58. Electronically submitted by Rudy Bradley ([email or web address]). ELDA STYLES MD Apr 25, 2024 17:58
[2024-04-25 19:26] VITALS: BP 147/91; TEMP 97.8
[2024-04-25] MEDS: ALPRAZolam 0.25 MG TAB PO ONE (19:30)
[2024-04-25 19:36] VITALS: PULSE 94; RESP 18; O2SAT 95
== END 2024-04-25 19:38 | disposition home or self-care (01) ==
LOC: ER 16:45
DX: F41.9 Anxiety disorder, unspecified (principal); J45.909 Unspecified asthma, uncomplicated; M19.90 Unspecified osteoarthritis, unspecified site; F32.A Depression, unspecified; Z98.51 Tubal ligation status; I12.9 Hypertensive chronic kidney disease with stage 1 through stage 4 chronic kidney disease, or unspecified chronic kidney disease; N18.9 Chronic kidney disease, unspecified; E78.5 Hyperlipidemia, unspecified; Z88.2 Allergy status to sulfonamides; Z87.440 Personal history of urinary (tract) infections; Z90.49 Acquired absence of other specified parts of digestive tract; Z90.710 Acquired absence of both cervix and uterus

== ENCOUNTER 2024-09-23 10:01 | Inpatient (IN) | payer OTHER, MEDICAID ==
[~2024-09-23] VITALS: Ht 175.3 cm; Wt 100.0 kg
--- NOTE | 2024-09-23 10:33 | ED.PDOC ---
HPI Comments 64 y/o F, BIBA, with PMHx of asthma, COPD, HTN, HLD, and DVT presents to the ED for CC of chest pain. EMS reports, patient is coming from home where she complains of non-radiating substernal chest pain with associated symptoms of shortness of breath and non-productive cough x2days. Patient relays, chest pain to be tight in nature ; complains of current 4/10 chest pain. Patient denies palpitations, nausea, vomiting, headache, or dizziness. No other symptoms or modifying factors present at this time. Chief Complaint: Chest Pain Time Seen by MD: 10:25 Primary Care Provider: ISRAEL Reviewed Notes: Nurses Notes, Disc Pad Knockout Worker Notes, Medications, Allergies Allergies: Coded Allergies: Sulfa Antibiotics (Verified Allergy, Unknown, 09/16/23) Home Meds Active Scripts Alprazolam (Xanax) 0.25 Mg Tb, 1 TAB PO DAILY for 3 Days, #3 TAB Prov:ELDA STYLES MD 04/25/24 Prednisone (Prednisone) 20 Mg Tab, 20 MG PO BID for 5 Days, #10 TAB Prov:NATO BOWEN MD 04/15/24 Azithromycin (Azithromycin) 500 Mg Tab, 1 TAB PO DAILY for 7 Days, #7 TAB Prov:NATO BOWEN MD 04/15/24 Albuterol Sulfate (Albuterol Sulfate Hfa) 108 Mcg/Act Aer, 108 MCG IN Q6HP PRN for 10 Days, #1 AER Prov:NATO BOWEN MD 04/15/24 Albuterol Sulfate (Albuterol Sulfate) 0.083 % Neb, 1 VIAL NEB Q4HPRN PRN for 20 Days, #50 VIAL Prov:NATO BOWEN MD 04/15/24 Doxycycline (Monohydrate) (Doxycycline) 100 Mg Cap, 100 MG PO BID for 5 Days, #10 CAP Prov:BLU NERI NP 03/05/24 Levofloxacin Hemihydrate (LEVAQUIN 500 MG) 500 Mg Tab, 500 MG PO DAILY for 7 Days, #7 TAB Prov:TRINO DURBIN MD 02/12/24 Acetaminophen (Acetaminophen) 500 Mg Tab, 500 MG PO Q4HP PRN, #30 TAB Prov:JANE BYRNE PAC 01/25/24 Midodrine HCl (Midodrine HCl) 10 Mg Tab, 10 MG PO TID for 14 Days, #42 TAB Prov:RAJ MILLIGAN DYNAMIC BALANCER 12/20/23 Azithromycin (Azithromycin) 250 Mg Tab, 250 MG PO DAILY MDD 500 for 5 Days, #6 TAB 0 Refills 2 TABLETS ORALLY ON DAY ONE, THEN 1 TABLET ORALLY DAILY FOR 4 DAYS Prov:RAJ MILLIGAN DYNAMIC BALANCER 12/20/23 Pantoprazole Sodium Sesquihydr (Protonix) 40 Mg Tab, 40 MG PO DAILY for 30 Days, #30 TAB Prov:JOSE MULLINS DO 01/29/23 Reported Medications Valbenazine Tosylate (Ingrezza) 80 Mg Cap, 80 MG PO QPM, CAP 06/08/22 Atorvastatin Calcium (ATORVASTATIN CALCIUM) 40 Mg Tab, 1 TAB PO DAILY, #30 TAB 5 Refills 06/08/22 Ferrous Sulfate (Ferrous Sulfate) 325 Mg Tab, 325 MG PO TIDWM for 30 Days 06/08/22 Apixaban Base (ELIQUIS) 5 Mg Tab, 5 MG PO BID, TAB 06/08/22 Hydrochlorothiazide (Hydrochlorothiazide) 25 Mg Tab, 25 MG PO QAM for 30 Days, MG 06/08/22 Gabapentin (Gabapentin) 300 Mg Cap, 300 MG PO BID for 30 Days, MG 06/08/22 Oxycodone W/ Acetaminophen (Percocet 5/325MG) 1 Tab Tb, 1 TAB PO DAILY, TAB 09/17/20 Diclofenac Sodium (Topical) (Diclofenac Sodium) 1 % Gel, 1 % TD PRN, GEL 03/12/19 Fluticasone-Salmeterol (Advair Hfa 115-21 Mcg/Act) 1 Aer Aer, 1 AER IN PRN, AER 03/12/19 Albuterol Sulfate (Albuterol Sulfate Hfa) 108 Mcg/Act Aer, 108 MCG IN PRN, AER 03/12/19 Escitalopram Oxalate (ESCITALOPRAM OXALATE) 20 Mg Tab, 1 TAB PO DAILY, #30 TAB 5 Refills 03/12/19 Pramipexole Dihydrochloride (Pramipexole Dihydrochlori) 4.5 Mg Tab, 4.5 MG PO DAILY, TAB 03/12/19 Lisinopril (Lisinopril) 5 Mg Tab, 5 MG PO DAILY for 30 Days, MG 03/12/19 Trazodone Hcl (Trazodone Hcl) 100 Mg Tab, 100 MG PO HS, MG 03/12/19 Montelukast Sodium (MONTELUKAST SODIUM) 10 Mg Tab, 1 TAB PO HS, #30 TAB 5 Refills 03/12/19 Information Source: Patient, Emergency Med Personnel Mode of Arrival: EMS Severity: Moderate Timing: Days Duration: Since onset Prehospital treatment: None Location: Substernal Radiation: No Radiation Quality: Tightness Onset: At Rest Cardiac Risk Factors: Hyperlipidemia, HTN PE Risk Factors: None History of: DVT/PE Modifying Factors: Nothing Associated Signs and Symptoms: SOB, None Past Medical History PAST MEDICAL HISTORY: Anxiety, Arthritis, Asthma, CKF, COPD, Depression, High Lipids, HTN, UTI'S Past Medical History (Other): DVT Surgical History: Appendectomy, Hysterectomy, Tubal Ligation OUTBOARD SYSTEM OPERATOR History: No Pertinent OUTBOARD SYSTEM OPERATOR History Family History Family History: Reviewed,noncontributory to illness, Unknown Social History Smoker: Non-Smoker Alcohol: Denies ETOH Use Drugs: Denies Drug Use Lives In: Home Constitutional: denies: chills, diaphoresis, fatigue, fever, malaise, sweats, weakness, others EENTM: denies: blurred vision, double vision, ear bleeding, ear discharge, ear drainage, ear pain, ear ringing, eye pain, eye redness, hearing loss, mouth pain, mouth swelling, nasal discharge, nose bleeding, nose congestion, nose pain, photophobia, tearing, throat pain, throat swelling, voice changes, others Respiratory: reports: cough, shortness of breath; denies: hemoptysis, orthopnea, SOB at rest, SOB with excertion, stridor, wheezing, others Cardiovascular: reports: chest pain Gastrointestinal: denies: abdomen distended, abdominal pain, blood streaked bow els, constipated, diarrhea, dysphagia, difficulty swallowing, hematemesis, melena, nausea, poor appetite, poor fluid intake, rectal bleeding, rectal pain, vomiting, others Genitourinary: denies: abnormal vagina bleeding, burning, dyspareunia, dysuria, flank pain, frequency, hematuria, incontinence, pain, , vagina discharge, urgency, others Neurological: denies: dizziness, fainting, headache, left sided numbness, left sided weakness, numbness, paresthesia, pre-existing deficit, right sided numbness, right sided weakness, seizure, speech problems, tingling, tremors, weakness, others Musculoskeletal: denies: back pain, gout, joint pain, joint swelling, muscle pain, muscle stiffness, neck pain, others Integumetry: denies: bruises, change in color, change in hair/nails, dryness, laceration, lesions, lumps, rash, wounds, others Allergic/Immunocompromised: denies: Difficulty Healing, Frequent Infections, Hives, Itching, others Hematologic/Lymphatic: denies: anemia, blood clots, easy bleeding, easy bruisi ng, swollen glands, others Endocrine: denies: excessive hunger, excessive sweating, excessive thirst, exce ssive urination, flushing, intolerance to cold, intolerance to heat, unexplained weight gain, unexplained weight loss, others Psychiatric: denies: anxiety, bipolar disorder, depression, hopeless, panic disorder, schizophrenia, sleepless, suicidal, others All Other Systems: Reviewed and Negative Physical Exam General Appearance: No Apparent Distress, Normal HEENT: Normal ENT Inspection, Pharynx Normal, TMs Normal Neck: Full Range of Motion, Non-Tender, Normal, Normal Inspection Respiratory: Chest Non-Tender, Lungs Clear, No Accessory Muscle Use, No Respiratory Distress, Normal Breath Sounds Cardiovascular: Irregular (heart rate), No Edema, No Murmur, No Gallop, Normal Peripheral Pulses Breast Exam: Deferred Gastrointestinal: No Organomegaly, Non Tender, No Pulsatile Mass, Normal Bowel Sounds, Soft Genitalia: Deferred Pelvic: Deferred Rectal: Deferred Extremities: No calf tenderness, Normal capillary refill, Normal inspection, Normal range of motion, Non-tender, No pedal edema Musculoskeletal : Apperance: Normal Neurologic: Alert, yarn rewinder II-XII nml as Tested, No Motor Deficits, Normal Affect, Normal Mood, No Sensory Deficits Cerebellar Function: Normal Reflexes: Normal Skin: Dry, Normal Color, Warm Lymphatic: No Adenopathy Was a procedure done? Was a procedure done?: No CP Differential Dx Differential Diagnosis: A-fib Differential Diagnosis: HTN Essential, HTN Accelerated Differential Diagnosis: Chest Wall Pain, Costochondritis, Esophageal reflux/spasm, Gastritis, Pneumonia X-Ray, Labs, Meds, VS Vital Signs Date Time Temp Pulse Resp B/P (MAP) Pulse Ox O2 Delivery O2 Flow Rate FiO2 09/23/24 12:08 84 09/23/24 11:05 77 09/23/24 10:40 82 21 98 Room Air* 0 21 09/23/24 10:39 97.8 82 21 146/64 (91) 98 97.8 09/23/24 10:17 98.2 83 18 139/58 (85) 96 98.2 09/23/24 10:02 77 Lab Test 09/23/24 11:34 09/23/24 10:24 Range/Units Troponin I High Sensitivity < 3 L < 3 L </=34 ng/L White Blood Count 5.9 4.4-10.8 10^3/uL Red Blood Count 5.26 H 4.0-5.20 10^6/uL Hemoglobin 14.3 12.2-16.2 g/dL Hematocrit 43.0 36.0-46.0 % Mean Corpuscular Volume 81.9 80.0-100.0 fL Mean Corpuscular Hemoglobin 27.2 L 28.0-32.0 pg Mean Corpuscular Hemoglobin Concent 33.2 32.0-36.0 g/dL Red Cell Distribution Width 15.0 H 11.8-14.3 % Platelet Count 213 140-450 10^3/uL Mean Platelet Volume 7.8 6.9-10.8 fL Neutrophils (%) (Auto) 70.4 37.0-80.0 % Lymphocytes (%) (Auto) 17.5 10.0-50.0 % Monocytes (%) (Auto) 7.7 0.0-12.0 % Eosinophils (%) (Auto) 3.4 0.0-7.0 % Basophils (%) (Auto) 1.0 0.0-2.0 % Neutrophils # (Auto) 4.2 1.6-8.6 10 ^3/uL Lymphocytes # (Auto) 1.0 0.4-5.4 10 ^3/uL Monocytes # (Auto) 0.5 0-1.3 10 ^3/uL Eosinophils # (Auto) 0.2 0-0.8 10 ^3/uL Basophils # (Auto) 0.1 0-0.2 10 ^3/uL Nucleated Red Blood Cells 0.1 % Prothrombin Time 10.3 9.3-11.8 sec Prothrombin Time INR 0.97 0.9-1.15 Activated Partial Thromboplast Time 26.9 24.5-34.5 SEC D-Dimer, Quantitative 0.70 H 0.0-0.49 mg/L FEU Sodium Level 143 136-145 mmol/L Potassium Level 3.7 3.5-5.1 mmol/L Chloride Level 105 98-107 mmol/L Carbon Dioxide Level 28 20-31 mmol/L Anion Gap 10 5-15 Blood Urea Nitrogen 18 9-23 mg/dL Creatinine 0.91 0.550-1.02 mg/dL Glomerular Filtration Rate Calc 70 >90 mL/min BUN/Creatinine Ratio 19.8 10.0-20.0 Serum Glucose 85 74-106 mg/dL Calcium Level 10.7 H 8.7-10.4 mg/dL [place] [id number] Ph: [phone] DIAGNOSTIC IMAGING Diagnostic Imaging Report : [id number] Signed PATIENT: DAVID ARCHIBALD ACCT: [id number] UNIT: [id number] : 1960 LOC: ER ROOM / BED: / AGE / SEX: 64 / F ADM STATUS: REG ER SERVICE 1014 ORDERING PHYSICIAN: JENNY SCALES MD PROCEDURE(s): CXRP - CHEST PORTABLE REASON: chest pain, sob, hx of dvt ORDER NUMBER(s): [id number], ACCESSION NUMBER(s): [id number] EXAM: XY CHEST PORTABLE Indication: chest pain Technique: Single frontal view of the chest was obtained Comparison: XY CHEST PORTABLE on DOS: 04/25/24, XY CHEST PORTABLE on DOS: 1 , XY CHEST PORTABLE on DOS: 03/05/24, XY CHEST PORTABLE on DOS: 03/04/24, XY CHEST PORTABLE on DOS: 12/18/23 FINDINGS: Lines and Tubes: None Lungs: No focal consolidation. Pleura: No effusion. No pneumothorax. Cardiomediastinal contours: Unremarkable Bones: No acute osseous abnormality. IMPRESSION: No acute cardiopulmonary disease. ATED BY: RADHA BEASLEY MD DICTATED DATE/TIME: 09/23/24 1112 SIGNED BY: RADHA BEASLEY MD SIGNED DATE/TIME: 09/23/24 1112 CC: Time of 1ST Reevaluation: 11:05 Reevaluation 1ST: Unchanged Patient Education/Counseling: Diagnosis, Treatment Family Education/Counseling: No Family Present Departure 1 Departure Time of Disposition: 12:33 (Patient presented with chest pain that was concerning for possible STEMI, ACS, PE, Pneumonia, Muscle Strain, COPD, Disse ction. Data: 1. I ordered and reviewed the result of at least 3 labs including a CBC, BMP, and Troponin. 2. I independently interpreted the following tests: EKG which shows sinus arrhythmia and Chest X-ray which shows benign chest.Risk:This patient has a high risk of morbidity due to further diagnostic testing or treatment and may suffer from an acute cardiac or respiratory disorder. Workup reveals concern for ACS and patient should be admitted for further workup and possible expert consultation. ) Impression: Primary Impression: Acute chest pain Additional Impression: Shortness of breath Disposition: 09 ADMITTED INPATIENT Admit to: Med Surg Condition: Guarded Critical Care Note Critical Care Time?: Yes Critical care comment: Acute chest pain Authorized and Performed by: Jenny Scales MD Total critical care time: Approximately 39 minutes Due to a high probability of clinically significant, life threatening deterioration, the patient required my highest level of preparedness to intervene emergently and I personally spent this critical care time directly and personally managing the patient. This critical care time included obtaining a history; examining the patient; pulse oximetry; ordering and review of studies; arranging urgent treatment with development of a management plan; evaluation of patient's response to treatment; frequent reassessment; and, discussions with other providers. This critical care time was performed to assess and manage the high probability of imminent, life-threatening deterioration that could result in multi-organ failure. It was exclusive of separately billable procedures and treating other patients and teaching time. Please see my other sections and the rest of the note for further information on patient assessment and treatment. Stability Stability form required: No Heart Score Heart Score: Heart Score Response (Comments) Value History Moderate Suspicious 1 EKG N/A 0 Age 45-64 1 Risk Factors 1 or 2 risk factors 1 Troponin N/A 0 Total 3 I personally scribed for JENNY SCALES MD ([email or web address]) on 09/23/24 at 10:33. Electronically submitted by Britney Rose ([email or web address]). I personally scribed for JENNY SCALES MD ([email or web address]) on 09/23/24 at 11:40. Electronically submitted by Britney Rsoe ([email or web address]). JENNY SCALES MD Sep 23, 2024 10:33
[2024-09-23 10:40] VITALS: PULSE 82; RESP 21; O2SAT 98
[2024-09-23 10:47] LABS: Basophils # (auto) 0.1 10 ^3/uL (0-0.2); Eosinophils # (auto) 0.2 10 ^3/uL (0-0.8); Eosinophils % (auto) 3.4 % (0.0-7.0); Hemoglobin 14.3 g/dL (12.2-16.2); Lymphocytes % (auto) 17.5 % (10.0-50.0); Mean Corpuscular Hemoglobin 27.2 pg (28.0-32.0); Mean Corpuscular Hgb Conc. 33.2 g/dL (32.0-36.0); Mean Corpuscular Volume 81.9 fL (80.0-100.0); Monocytes # (auto) 0.5 10 ^3/uL (0-1.3); Monocytes % (auto) 7.7 % (0.0-12.0); Neutrophils # (auto) 4.2 10 ^3/uL (1.6-8.6); Neutrophils % (auto) 70.4 % (37.0-80.0); Nucleated Red Blood Cells % 0.1 %; Platelet Count (auto) 213 10^3/uL (140-450); Red Blood Cells 5.26 10^6/uL (4.0-5.20); White Blood Cell 5.9 10^3/uL (4.4-10.8)
[2024-09-23 10:50] LABS: Chloride 105 mmol/L (98-107); Potassium 3.7 mmol/L (3.5-5.1); Sodium 143 mmol/L (136-145)
[2024-09-23 10:51] LABS: Anion Gap 10 (5-15); Carbon Dioxide 28 mmol/L (20-31)
[2024-09-23 10:57] LABS: BUN/Creatinine Ratio 19.8 (10.0-20.0); Blood Urea Nitrogen 18 mg/dL (9-23); Calcium 10.7 mg/dL (8.7-10.4); Glucose 85 mg/dL (74-106)
[2024-09-23 11:04] LABS: INR 0.97 (0.9-1.15); Partial Thromboplastin Time 26.9 SEC (24.5-34.5); Prothrombin Time 10.3 sec (9.3-11.8)
--- NOTE | 2024-09-23 11:14 | DVH ---
EXAM: XY CHEST PORTABLE Indication: chest pain Technique: Single frontal view of the chest was obtained Comparison: XY CHEST PORTABLE on DOS: 04/25/24, XY CHEST PORTABLE on DOS: 04/15/24, XY CHEST PORTABLE on DOS: 03/05/24, XY CHEST PORTABLE on DOS: 03/04/24, XY CHEST PORTABLE on DOS: 12/18/23 FINDINGS: Lines and Tubes: None Lungs: No focal consolidation. Pleura: No effusion. No pneumothorax. Cardiomediastinal contours: Unremarkable Bones: No acute osseous abnormality. IMPRESSION: No acute cardiopulmonary disease.
--- NOTE | 2024-09-23 13:56 | DVHHP2 ---
History of Present Illness Reason for Visit: Chest pain History of Present Illness Milagros Carver is a 64-year-old female with past medical history of hypertension, hyperlipidemia, asthma, anxiety, depression, and COPD who came to the hospital with complaints of chest pain. Patient states she began having chest pain with associated shortness of breath and cough for 2 days. Her symptoms have continued to worsen prompting her to come to the hospital. Patient follows with Dr. Wu as an outpatient for cardiology. States she had a cardiac angiogram completed on 09/12/2024. D-Dimer is elevated. Cardiovascular: HTN, hyperipidemia Pulmonary: Asthma, COPD Psych: Anxiety, Depression Past Surgical History: Appendectomy, Hysterectomy, Total knee replacement (bilateral), Tubal Ligation Smoke: No ALCOHOL: none Drugs: None Lives: with Family Domestic Violence: Neg Review of Systems Constitutional: No: Fever, Chills, Sweats, Weakness, Malaise, Other Eyes: No: Pain, Vision change, Conjunctivae inflammation, Eyelid inflammation, Other, Redness ENT: No: Ear pain, Ear discharge, Nose pain, Nose discharge, Nose congestion, Mouth pain, Mouth swelling, Throat pain, Throat swelling, Other Respiratory: Shortness of breath, SOB with excertion; No: Cough, Dry, Wheezing, Hemoptysis, Pleuritic Pain, Sputum, Wheezing, Other Cardiovascular: Chest Pain; No: Palpitations, Orthopnea, Paroxysmal Noc. Dys pnea, Edema, Lt Headedness, Other Gastrointestinal: No: Nausea, Vomiting, Abdominal Pain, Diarrhea, Constipation, Melena, Hematochezia, Other Genitourinary: No Dysuria, No Frequency, No Incontinence, No Hematuria, No Retention, No Other Musculoskeletal: No: other, neck pain, shoulder pain, arm pain, back pain, hand pain, leg pain, foot pain Skin: No: Rash, Lesions, Jaundice, Bruising, Other Neurological: No: Weakness, Numbness, Incoordination, Change in speech, Confusion, Seizures, Other Allergies: Coded Allergies: Sulfa Antibiotics (Verified Allergy, Unknown, 09/16/23) Medications Current Medications Medications Dose Ordered Sig/Nara Route Start Time Stop Time Status Last Admin Dose Admin Acetaminophen/ Hydrocodone Bitart 1 tab Q4HP PRN PO 09/23/24 14:00 Ondansetron HCl 4 mg Q4HP PRN IV 09/23/24 14:00 Docusate Sodium 100 mg BIDPRN PRN PO 09/23/24 14:00 Acetaminophen 650 mg Q6HP PRN PO 09/23/24 14:00 Nitroglycerin 0.4 mg Q5MINP PRN SL 09/23/24 14:00 UNV Morphine Sulfate 2 mg Q30M PRN IV 09/23/24 14:00 UNV Exam Vital Signs Vital Signs Date Time Temp Pulse Resp B/P (MAP) Pulse Ox O2 Delivery O2 Flow Rate FiO2 09/23/24 13:03 92 09/23/24 10:40 21 98 Room Air* 0 21 09/23/24 10:39 97.8 146/64 (91) 97.8 General Appearance: Alert, Oriented X3, Cooperative, mild distress HEENT: Atraumatic, PERRLA, Mucous membr. moist/pink Respiratory: Clear to auscultation Cardiovascular: Regular rate, Normal S1, Normal S2, No murmurs Abdominal: Normal bowel sounds, Soft, No tenderness, No hepatospenomegaly Extremities: No clubbing, No cyanosis, No edema, Normal pulses Skin: No rashes, No breakdown, No significant lesion Neuro: Normal gait, Normal speech, Strength at 5/5 X4 ext Psych/Mental Status: Mental status NL, Mood NL Labs/Xrays Labs Test 09/23/24 12:56 09/23/24 10:24 Range/Units Troponin I High Sensitivity 3 L </=34 ng/L White Blood Count 5.9 4.4-10.8 10^3/uL Red Blood Count 5.26 H 4.0-5.20 10^6/uL Hemoglobin 14.3 12.2-16.2 g/dL Hematocrit 43.0 36.0-46.0 % Mean Corpuscular Volume 81.9 80.0-100.0 fL Mean Corpuscular Hemoglobin 27.2 L 28.0-32.0 pg Mean Corpuscular Hemoglobin Concent 33.2 32.0-36.0 g/dL Red Cell Distribution Width 15.0 H 11.8-14.3 % Platelet Count 213 140-450 10^3/uL Mean Platelet Volume 7.8 6.9-10.8 fL Neutrophils (%) (Auto) 70.4 37.0-80.0 % Lymphocytes (%) (Auto) 17.5 10.0-50.0 % Monocytes (%) (Auto) 7.7 0.0-12.0 % Eosinophils (%) (Auto) 3.4 0.0-7.0 % Basophils (%) (Auto) 1.0 0.0-2.0 % Neutrophils # (Auto) 4.2 1.6-8.6 10 ^3/uL Lymphocytes # (Auto) 1.0 0.4-5.4 10 ^3/uL Monocytes # (Auto) 0.5 0-1.3 10 ^3/uL Eosinophils # (Auto) 0.2 0-0.8 10 ^3/uL Basophils # (Auto) 0.1 0-0.2 10 ^3/uL Nucleated Red Blood Cells 0.1 % Prothrombin Time 10.3 9.3-11.8 sec Prothrombin Time INR 0.97 0.9-1.15 Activated Partial Thromboplast Time 26.9 24.5-34.5 SEC D-Dimer, Quantitative 0.70 H 0.0-0.49 mg/L FEU Sodium Level 143 136-145 mmol/L Potassium Level 3.7 3.5-5.1 mmol/L Chloride Level 105 98-107 mmol/L Carbon Dioxide Level 28 20-31 mmol/L Anion Gap 10 5-15 Blood Urea Nitrogen 18 9-23 mg/dL Creatinine 0.91 0.550-1.02 mg/dL Glomerular Filtration Rate Calc 70 >90 mL/min BUN/Creatinine Ratio 19.8 10.0-20.0 Serum Glucose 85 74-106 mg/dL Calcium Level 10.7 H 8.7-10.4 mg/dL EXAM: XY CHEST PORTABLE FINDINGS: Lines and Tubes: None Lungs: No focal consolidation. Pleura: No effusion. No pneumothorax. Cardiomediastinal contours: Unremarkable Bones: No acute osseous abnormality. IMPRESSION: No acute cardiopulmonary disease. Procedure: US BiLat Lower DVT Findings: No visible intraluminal venous thrombus. No evidence of incompressibility or abnormal color or spectral Doppler flow visualized in the bilateral lower extremity veins including, the common femoral vein, deep femoral vein, proximal mid and distal superficial femoral vein, and popliteal vein. Greater saphenous vein grossly unremarkable. Impression: No sonographic evidence of bilateral lower extremity deep venous thrombosis. Assessment/Plan Assessment/Plan Assessment: Shortness of breath, Elevated D-dimer, Chest pain, Hypertension, Hyperlipidemia, COPD, Plan: Admit to Tele, Cardiology consult, Supplemental oxygen as needed, Breathing treatments as needed, Home medications reconciled, Plan discussed with: Patient My Orders Orders - ZAIN CIFUENTES Procedure Category Date Status Time Admit ADMIT 09/23/24 Transmitted 13:47 Code Status CODE 09/23/24 Transmitted 13:47 Hydrocodone-Acet PHA 09/23/24 In Process 5/325mg Tab ([place] 14:00 Ondansetron Hcl PHA 09/23/24 Logged (Zofran) 14:00 Docusate Sodium PHA 09/23/24 Logged Capsule (Colace 14:00 Complete Blood Count LAB 09/24/24 Verified 04:00 Comprehensive LAB 09/24/24 Verified Metabolic Panel 04:00 Cardiac DIET 09/23/24 Transmitted Diet-2gna,Lofat,Lochol Dinner Condition: Serious MY 09/23/24 In Process 13:47 Acetaminophen Tablet PHA 09/23/24 Logged (Tylenol Tablet) 14:00 Nitroglycerin PHA 09/23/24 Logged Sublingual (Ntrostat 14:00 Morphine Sulfate PHA 09/23/24 Logged Injection 14:00 Stat Ekg For Chest MY 09/23/24 In Process Pain 13:47 Notify Md Of Changes MY 09/23/24 In Process From Base 13:47 Milk Runner For MY 09/23/24 In Process 24 Hours 13:47 Emergency Dysrhythmia MY 09/23/24 In Process Protocol 13:47 Rhythm Strips Once MY 09/23/24 In Process Every Shift 13:47 Oxygen By Nasal RT 09/23/24 Transmitted Cannula 13:47 Date of Service: Sep 23, 2024 Billing Provider: ZAIN CIFUENTES Common Visit Codes: 88834-[id number] INP/OBS CARE (MOD) ZAIN CIFUENTES Sep 23, 2024 13:56
--- NOTE | 2024-09-23 13:59 | DVH ---
Procedure: US BiLat Lower DVT Study Date and Requested Time: 09/23/2024 01:19 PM History: leg swelling Comparison: US BILAT LOWER DVT on DOS: 04/16/24 Technique: Multiple high resolution lopez-scale images with and without compression obtained of the bi lateral lower extremity veins, including the common femoral vein, deep femoral vein, proximal mid and distal superficial femoral vein, and popliteal vein. Additional limited images of the greater saphen ous vein also obtained. Augmentation performed as indicated. Color and spectral doppler flow images o btained as indicated. Findings: No visible intraluminal venous thrombus. No evidence of incompressibility or abnormal color or spectr al Doppler flow visualized in the bilateral lower extremity veins including, the common femoral vein, deep femoral vein, proximal mid and distal superficial femoral vein, and popliteal vein. Greater sap henous vein grossly unremarkable. Impression: No sonographic evidence of bilateral lower extremity deep venous thrombosis.
[2024-09-23] MEDS ORDERED: NITROGLYCERIN 0.4 MG SL TAB SL PRN (14:00)
[2024-09-23] MEDS ORDERED: ONDANSETRON HCL 4 MG/2 ML VIAL IV PRN (14:00)
[2024-09-23] MEDS ORDERED: DOCUSATE SOD 100 MG CAP PO PRN (14:00)
[2024-09-23] MEDS ORDERED: MORPHINE SULFATE INJ 2 MG/ml SYRG IV PRN (14:00)
[2024-09-23] MEDS: ACETAMINOPHEN 325 MG TAB PO PRN (14:56)
--- NOTE | 2024-09-23 15:42 | ECG ---
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
--- NOTE | 2024-09-23 15:43 | ECG ---
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
--- NOTE | 2024-09-23 15:44 | ECG ---
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
[2024-09-23 18:21] LABS: Urine Bacteria None Seen /hpf (None Seen)
[2024-09-23] MEDS ORDERED: FLUTICASONE PROPIONATE IN SCH ×2 (18:30→19:30)
[2024-09-23] MEDS ORDERED: SALMETEROL IN SCH ×2 (18:30→19:30)
[2024-09-23 18:34] LABS: Urine Blood Negative /uL (Negative); Urine Clarity Clear (Clear); Urine Color Light-Yellow (Yellow); Urine Protein, UAD Negative (Negative); Urine Specific Gravity 1.015 (1.001-1.035); Urine Squamous Epithelial Cell FEW /hpf (<5); Urine Urobilinogen Normal (Negative); Urine WBC 1 /HPF (0-5); Urine pH 5.5 (5.0-9.0)
[2024-09-23] MEDS: HYDROcodone-ACET 5/325MG TAB PO PRN (19:01)
[2024-09-23 19:09] VITALS: BP 131/71; PULSE 82; RESP 24; TEMP 97.8; O2SAT 94
[2024-09-23 21:30] VITALS: BP 116/67; PULSE 89; RESP 17; TEMP 97.9; O2SAT 94
[2024-09-23] MEDS: APIXABAN 5 MG TAB PO SCH (21:53)
[2024-09-23] MEDS: GABAPENTIN 300 MG CAP PO SCH (21:53)
[2024-09-23] MEDS: traZODone HCL 50 MG TAB PO SCH (21:53)
[2024-09-24 05:41] LABS: Basophils # (auto) 0.1 10 ^3/uL (0-0.2); Basophils % (auto) 1.7 % (0.0-2.0); Eosinophils # (auto) 0.3 10 ^3/uL (0-0.8); Eosinophils % (auto) 7.3 % (0.0-7.0); Hematocrit 42.5 % (36.0-46.0); Hemoglobin 14.3 g/dL (12.2-16.2); Lymphocytes # (auto) 1.3 10 ^3/uL (0.4-5.4); Lymphocytes % (auto) 34.9 % (10.0-50.0); Mean Corpuscular Hemoglobin 27.4 pg (28.0-32.0); Mean Corpuscular Hgb Conc. 33.6 g/dL (32.0-36.0); Mean Corpuscular Volume 81.7 fL (80.0-100.0); Monocytes # (auto) 0.3 10 ^3/uL (0-1.3); Monocytes % (auto) 8.6 % (0.0-12.0); Neutrophils # (auto) 1.7 10 ^3/uL (1.6-8.6); Neutrophils % (auto) 47.5 % (37.0-80.0); Nucleated Red Blood Cells % 0.1 %; Platelet Count (auto) 218 10^3/uL (140-450); White Blood Cell 3.7 10^3/uL (4.4-10.8)
[2024-09-24 06:03] LABS: Alkaline Phosphatase 100 U/L (46-116)
[2024-09-24 06:04] LABS: Alanine Aminotransferase 21 U/L (7-40); Albumin 4.7 g/dL (3.2-4.8); Anion Gap 12 (5-15); Aspartate Aminotransferase 19 U/L (13-40); BUN/Creatinine Ratio 13.9 (10.0-20.0); Bilirubin, Total 0.9 mg/dL (0.2-1.0); Blood Urea Nitrogen 14 mg/dL (9-23); Carbon Dioxide 25 mmol/L (20-31); Chloride 103 mmol/L (98-107); Glucose 89 mg/dL (74-106); Sodium 140 mmol/L (136-145); Total Protein 7.2 g/dL (5.7-8.2)
[2024-09-24 06:05] LABS: Calcium 10.7 mg/dL (8.7-10.4); Potassium 3.2 mmol/L (3.5-5.1)
[2024-09-24] MEDS: hydroCHLOROthiazide 25 MG TAB PO SCH (06:20)
--- NOTE | 2024-09-24 07:26 | DVHINCON2 ---
Date of service: Sep 24, 2024 History of Present Illness HPI Patient is 64 year old female who presented to hospital for chest pain / SOB and cough (around 2 days). Denies exertional component. No ort hopnea/PND/LOC/palpitation. Cardiology was called for cardiac aspects of care. It is of note that serial high sensitive trop has been negative. It is also of note that patient had cardiac catheterization (electively in [facility]) in which revealed normal coronaries. She does have baseline poor functional capacity. Home Meds Active Scripts Alprazolam (Xanax) 0.25 Mg Tb, 1 TAB PO DAILY for 3 Days, #3 TAB Prov:ELDA STYLES MD 04/25/24 Prednisone (Prednisone) 20 Mg Tab, 20 MG PO BID for 5 Days, #10 TAB Prov:NATO BOWEN MD 04/15/24 Albuterol Sulfate (Albuterol Sulfate Hfa) 108 Mcg/Act Aer, 108 MCG IN Q6HP PRN for 10 Days, #1 AER Prov:NATO BOWEN MD 04/15/24 Albuterol Sulfate (Albuterol Sulfate) 0.083 % Neb, 1 VIAL NEB Q4HPRN PRN for 20 Days, #50 VIAL Prov:NATO BOWEN MD 04/15/24 Acetaminophen (Acetaminophen) 500 Mg Tab, 500 MG PO Q4HP PRN, #30 TAB Prov:JANE BYRNE PAC 01/25/24 Midodrine HCl (Midodrine HCl) 10 Mg Tab, 10 MG PO TID for 14 Days, #42 TAB Prov:RAJ MILLIGAN COLD PRESS OPERATOR 12/20/23 Azithromycin (Azithromycin) 250 Mg Tab, 250 MG PO DAILY MDD 500 for 5 Days, #6 TAB 0 Refills 2 TABLETS ORALLY ON DAY ONE, THEN 1 TABLET ORALLY DAILY FOR 4 DAYS Prov:RAJ MILLIGAN NP 12/20/23 Pantoprazole Sodium Sesquihydr (Protonix) 40 Mg Tab, 40 MG PO DAILY for 30 Days, #30 TAB Prov:JOSE MULLINS DO 01/29/23 Reported Medications Valbenazine Tosylate (Ingrezza) 80 Mg Cap, 80 MG PO QPM, CAP 06/08/22 Atorvastatin Calcium (ATORVASTATIN CALCIUM) 40 Mg Tab, 1 TAB PO DAILY, #30 TAB 5 Refills 06/08/22 Ferrous Sulfate (Ferrous Sulfate) 325 Mg Tab, 325 MG PO TIDWM for 30 Days 06/08/22 Apixaban Base (ELIQUIS) 5 Mg Tab, 5 MG PO BID, TAB 06/08/22 Hydrochlorothiazide (Hydrochlorothiazide) 25 Mg Tab, 25 MG PO QAM for 30 Days, MG 06/08/22 Gabapentin (Gabapentin) 300 Mg Cap, 300 MG PO BID for 30 Days, MG 06/08/22 Oxycodone W/ Acetaminophen (Percocet 5/325MG) 1 Tab Tb, 1 TAB PO DAILY, TAB 09/17/20 Diclofenac Sodium (Topical) (Diclofenac Sodium) 1 % Gel, 1 % TD PRN, GEL 03/12/19 Fluticasone-Salmeterol (Advair Hfa 115-21 Mcg/Act) 1 Aer Aer, 1 AER IN PRN, AER 03/12/19 Albuterol Sulfate (Albuterol Sulfate Hfa) 108 Mcg/Act Aer, 108 MCG IN PRN, AER 03/12/19 Escitalopram Oxalate (ESCITALOPRAM OXALATE) 20 Mg Tab, 1 TAB PO DAILY, #30 TAB 5 Refills 03/12/19 Pramipexole Dihydrochloride (Pramipexole Dihydrochlori) 4.5 Mg Tab, 4.5 MG PO DAILY, TAB 03/12/19 Lisinopril (Lisinopril) 5 Mg Tab, 5 MG PO DAILY for 30 Days, MG 03/12/19 Trazodone Hcl (Trazodone Hcl) 100 Mg Tab, 100 MG PO HS, MG 03/12/19 Montelukast Sodium (MONTELUKAST SODIUM) 10 Mg Tab, 1 TAB PO HS, #30 TAB 5 Refills 03/12/19 Discontinued Scripts Azithromycin (Azithromycin) 500 Mg Tab, 1 TAB PO DAILY for 7 Days, #7 TAB Prov:NATO BOWEN MD 04/15/24 Doxycycline (Monohydrate) (Doxycycline) 100 Mg Cap, 100 MG PO BID for 5 Days, #10 CAP Prov:BLU NERI NP 03/05/24 Levofloxacin Hemihydrate (LEVAQUIN 500 MG) 500 Mg Tab, 500 MG PO DAILY for 7 Days, #7 TAB Prov:TRINO DURBIN MD 02/12/24 Past Medical History Others Past medical history includes obesity, hypertension, hyperlipidemia, osteo arthritis, COPD/Asthma, pulmonary hypertension, asthma, neuropathy, CKD, low back pain, depression, radiculopathy, DJD, history of neurogenic bladder with bladder outlet obstruction, hemorrhoids, history of pancreatitis/rectosigmoiditis, old history of DVT (on Eliquis as outpatient), old history of appendicitis/cholecystitis/hysterectomy, history of bilateral carpal tunnel surgery, s/p old knee surgery and history of GI bleeding. Does have history of repeated UTIs. Family History: No pertinent Hx Patient Family History: FH: cancer G8 BROTHER FH: lung cancer G8 BROTHER FH: rheumatoid arthritis G8 MOTHER FHx: Crohn's disease 19 CHILD Smoker: No Hx (Negative) Drugs: None Lives with: With family Review of Systems Pulmonary/Respiratory: Dyspnea, Cough Cardiovascular: Chest Pain All Other Systems 14 point review of system was performed. Relevant findings as per above and as per HPI. Otherwise, negative H&P Exam Vital Signs Vital Signs Date Time Temp Pulse Resp B/P (MAP) Pulse Ox O2 Delivery O2 Flow Rate FiO2 09/24/24 06:20 117/76 09/24/24 04:50 96.2 76 16 96 96.2 09/23/24 19:09 0.0 21 09/23/24 19:09 Room Air* General Appeara: Well developed Head Exam: Normal inspection Neck Exam: Normal inspection Eye Exam: bilateral eye PERRL Mouth: Normal Inspection Pulmonary/Respiratory: Lungs clear Cardiovascular/Chest: Regular rate, Systolic murmur Peripheral Pulses: 2+ carotid (R), 2+ carotid (L), 2+ femoral (R), 2+ femoral (L), 2+ dorsalis pedis (R), 2+ dorsalis pedis (L), 2+ Radial (R), 2+ Radial (L) Abdominal Exam: Normal bowel sounds, Soft, No hepatospenomegaly Neuro/Mental St: Alert, Oriented Appearance: Appropriate appearance Eye contact/ Speech: Cooperative, Good eye contact Thoughts/Psych: Normal thought pattern Labs/Xrays Labs Test 09/24/24 04:23 09/23/24 17:00 09/23/24 12:56 09/23/24 10:24 Range/Units White Blood Count 3.7 #L 4.4-10.8 10^3/uL Red Blood Count 5.20 4.0-5.20 10^6/uL Hemoglobin 14.3 12.2-16.2 g/dL Hematocrit 42.5 36.0-46.0 % Mean Corpuscular Volume 81.7 80.0-100.0 fL Mean Corpuscular Hemoglobin 27.4 L 28.0-32.0 pg Mean Corpuscular Hemoglobin Concent 33.6 32.0-36.0 g/dL Red Cell Distribution Width 15.0 H 11.8-14.3 % Platelet Count 218 140-450 10^3/uL Mean Platelet Volume 7.8 6.9-10.8 fL Neutrophils (%) (Auto) 47.5 37.0-80.0 % Lymphocytes (%) (Auto) 34.9 10.0-50.0 % Monocytes (%) (Auto) 8.6 0.0-12.0 % Eosinophils (%) (Auto) 7.3 H 0.0-7.0 % Basophils (%) (Auto) 1.7 0.0-2.0 % Neutrophils # (Auto) 1.7 1.6-8.6 10 ^3/uL Lymphocytes # (Auto) 1.3 0.4-5.4 10 ^3/uL Monocytes # (Auto) 0.3 0-1.3 10 ^3/uL Eosinophils # (Auto) 0.3 0-0.8 10 ^3/uL Basophils # (Auto) 0.1 0-0.2 10 ^3/uL Nucleated Red Blood Cells 0.1 % Sodium Level 140 136-145 mmol/L Potassium Level 3.2 L 3.5-5.1 mmol/L Chloride Level 103 98-107 mmol/L Carbon Dioxide Level 25 20-31 mmol/L Anion Gap 12 5-15 Blood Urea Nitrogen 14 9-23 mg/dL Creatinine 1.01 0.550-1.02 mg/dL Glomerular Filtration Rate Calc 62 >90 mL/min BUN/Creatinine Ratio 13.9 10.0-20.0 Serum Glucose 89 74-106 mg/dL Calcium Level 10.7 H 8.7-10.4 mg/dL Total Bilirubin 0.9 0.2-1.0 mg/dL Aspartate Amino Transferase (AST) 19 13-40 U/L Alanine Aminotransferase (ALT) 21 7-40 U/L Alkaline Phosphatase 100 46-116 U/L Total Protein 7.2 5.7-8.2 g/dL Albumin 4.7 3.2-4.8 g/dL Urine Color Light-yellow Yellow Urine Clarity Clear Clear Urine pH 5.5 5.0-9.0 Urine Specific [place] 1.015 1.001-1.035 Urine Protein Negative Negative Urine Ketones Negative Negative Urine Blood Negative Negative /uL Urine Nitrite Negative Negative Urine Bilirubin Negative Negative Urine Urobilinogen Normal Negative mg/dL Urine Leukocyte Esterase Negative Negative /uL Urine RBC <1 0 - 4 /hpf Urine Microscopic WBC 1 0-5 /HPF Urine Squamous Epithelial Cells Few <5 /hpf Urine Bacteria None seen None Seen /hpf Urine Glucose Normal Normal mg/dL Troponin I High Sensitivity 3 L </=34 ng/L Prothrombin Time 10.3 9.3-11.8 sec Prothrombin Time INR 0.97 0.9-1.15 Activated Partial Thromboplast Time 26.9 24.5-34.5 SEC D-Dimer, Quantitative 0.70 H 0.0-0.49 mg/L FEU Assessment/Plan Plan Patient is 64 year old female who presented to hospital for chest pain / SOB and cough (around 2 days). Denies exertional component. No orthopnea/PND /LOC/palpitation. Cardiology was called for cardiac aspects of care. It is of note that serial high sensitive trop has been negative. It is also of note that patient had cardiac catheterization (electively in [facility]) in which revealed normal coronaries. She does have baseline poor functional capacity. Not in acute distress, no JVD, no Carotic Bruit, no Goiter, not using accessory muscles of breathing, lungs are clear to auscultation, Cardiac: RR, no thrill, no gallop, no murmur, Abdomen: soft, no hepatomegally, no mass, BS is positive, DP is 2+ bilateral,no peripheral edema. Past medical history includes obesity, hypertension, hyperlipidemia, osteoarthritis, COPD/Asthma, pulmonary hypertension, asthma, neuropathy, CKD, low back pain, depression, radiculopathy, DJD, history of neurogenic bladder with bladder outlet obstruction, hemorrhoids, history of pancreatitis/rectosigmoiditis, old history of DVT (on Eliquis as outpatient), old history of appendicitis/cholecystitis/hysterectomy, history of bilateral carpal tunnel surgery, s/p old knee surgery and history of GI bleeding. Does have history of repeated UTIs. Nuclear stress test of April 2020 had revealed fixed defect with no ischemia. Echocardiogram of September 08, 2022 (performed in the office) revealed mild concentric left ventricular hypertrophy, ejection fraction of 65 to 70%, normal diastolic, mild biatrial enlargement, mild MR, mild to moderate TR and right ventricular systolic pressure of 51 mmHg Echocardiogram of October 29, 2023 reported ejection fraction of 65%, mild MR/TR and right ventricular systolic pressure of 35 mm Hg Left Heart Catheterization of 09/12/2024 (performed in [facility]) revealed: normal coronaries, Normal EDP, mild pulmonary hypertension, Mean PA pressure of 28 mmHg D-Dimer: 0.70 Creat: 0.91 - 1.01 K: 3.7 - 3.2 Trop (high sensitive): <3 - <3 - 3 Chest x-ray revealed: IMPRESSION: No acute cardiopulmonary disease. Venous duplex of lower ext revealed: Impression: No sonographic evidence of bilateral lower extremity deep venous thrombosis. EKG revealed normal sinus rhythm, left atrial enlargement, no ST-T changes Telemetry shows sinus rhythm Patient is a 64-year-old female who presented with atypical chest pain. Serial high sensitive trop is normal. EKG has been non-revealing. Has had recent normal coronaries (s/p LHC at end of August/2024). ACS is not considered. R/O URI? Atypical Chest pain COPD exacerbation History of neurogenic bladder/bladder outlet obstruction Obesity, morbid Hyperlipidemia Neuropathy History of DVT Cardiac suggestion for management: Manage on telemetry Follow up electrolytes and kidney function tests and correct abnormalities Acute coronary syndrome is not considered No indication for ischemic workup Echocardiogram (can be performed as outpatient) Management of comorbidities as per primary Cardiac-leone, the patient can be followed as outpatient Thank you for consultation Further evaluation and management depends on above and clinical course A total of 75 minutes was spent reviewing the patient record, examining the patient, making a diagnostic and therapeutic plan, discussing this plan with medical personnel, following up on diagnostic studies and following the patient for clinical stability excluding any and all procedures. At least 50% of this time was spent in direct, gyxo-yn-dhly contact. Thank you for allowing me to participate in this patient's care. Further recommendations will depend on patient's clinical course. Please do not hesitate to contact me if you have any questions or concerns. This medical document was created using electronic medical record system with [employer] computerized dictation system. Although this document has been carefully reviewed, there may still be some phonetic and typographical errors. These areas are purely typographical due to the imperfection of the software programs, and do not reflect any compromise in the patient's medical care. Plan discussed with: Patient, Other (nurse) JANE JONES MD Sep 24, 2024 07:26
[2024-09-24 07:27] VITALS: PULSE 69; RESP 18; O2SAT 97
[2024-09-24] MEDS: IPRATROPIUM BROM 0.5 MG/2.5ML INH SOL NEB PRN (07:27)
[2024-09-24] MEDS: ALBUTEROL SULF 2.5 MG/0.5ML(0.5%) NEB SOLN NEB PRN (07:27)
[2024-09-24 07:28] VITALS: O2SAT 97
[2024-09-24 07:30] VITALS: PULSE 69; RESP 18; O2SAT 97
[2024-09-24 07:55] VITALS: BP 125/73; PULSE 82; RESP 22; TEMP 97.6; O2SAT 96
[2024-09-24] MEDS ORDERED: FERROUS SULFATE 325mg EC TAB PO SCH (08:00)
[2024-09-24 08:09] VITALS: BP 125/73; PULSE 82; RESP 22
[2024-09-24] MEDS: MORPHINE SULFATE 4 MG/ML SYR/VIAL IV PRN (08:09)
--- NOTE | 2024-09-24 08:47 | DVHDS2 ---
Discharge Summary Date of Admission Sep 23, 2024 at 13:47 Date of Discharge: Sep 24, 2024 Labs/Diagnostic Data: Laboratory Results Test 09/24/24 04:23 09/23/24 17:00 09/23/24 12:56 09/23/24 10:24 White Blood Count 3.7 10^3/uL (4.4-10.8) Red Blood Count 5.20 10^6/uL (4.0-5.20) Hemoglobin 14.3 g/dL (12.2-16.2) Hematocrit 42.5 % (36.0-46.0) Mean Corpuscular Volume 81.7 fL (80.0-100.0) Mean Corpuscular Hemoglobin 27.4 pg (28.0-32.0) Mean Corpuscular Hemoglobin Concent 33.6 g/dL (32.0-36.0) Red Cell Distribution Width 15.0 % (11.8-14.3) Platelet Count 218 10^3/uL (140-450) Mean Platelet Volume 7.8 fL (6.9-10.8) Neutrophils (%) (Auto) 47.5 % (37.0-80.0) Lymphocytes (%) (Auto) 34.9 % (10.0-50.0) Monocytes (%) (Auto) 8.6 % (0.0-12.0) Eosinophils (%) (Auto) 7.3 % (0.0-7.0) Basophils (%) (Auto) 1.7 % (0.0-2.0) Neutrophils # (Auto) 1.7 10 ^3/uL (1.6-8.6) Lymphocytes # (Auto) 1.3 10 ^3/uL (0.4-5.4) Monocytes # (Auto) 0.3 10 ^3/uL (0-1.3) Eosinophils # (Auto) 0.3 10 ^3/uL (0-0.8) Basophils # (Auto) 0.1 10 ^3/uL (0-0.2) Nucleated Red Blood Cells 0.1 % Sodium Level 140 mmol/L (136-145) Potassium Level 3.2 mmol/L (3.5-5.1) Chloride Level 103 mmol/L (98-107) Carbon Dioxide Level 25 mmol/L (20-31) Anion Gap 12 (5-15) Blood Urea Nitrogen 14 mg/dL (9-23) Creatinine 1.01 mg/dL (0.550-1.02) Glomerular Filtration Rate Calc 62 mL/min (>90) BUN/Creatinine Ratio 13.9 (10.0-20.0) Serum Glucose 89 mg/dL (74-106) Calcium Level 10.7 mg/dL (8.7-10.4) Total Bilirubin 0.9 mg/dL (0.2-1.0) Aspartate Amino Transferase (AST) 19 U/L (13-40) Alanine Aminotransferase (ALT) 21 U/L (7-40) Alkaline Phosphatase 100 U/L (46-116) Total Protein 7.2 g/dL (5.7-8.2) Albumin 4.7 g/dL (3.2-4.8) Urine Color Light-yellow (Yellow) Urine Clarity Clear (Clear) Urine pH 5.5 (5.0-9.0) Urine Specific [place] 1.015 (1.001-1.035) Urine Protein Negative (Negative) Urine Ketones Negative (Negative) Urine Blood Negative /uL (Negative) Urine Nitrite Negative (Negative) Urine Bilirubin Negative (Negative) Urine Urobilinogen Normal mg/dL (Negative) Urine Leukocyte Esterase Negative /uL (Negative) Urine RBC <1 /hpf (0 - 4) Urine Microscopic WBC 1 /HPF (0-5) Urine Squamous Epithelial Cells Few /hpf (<5) Urine Bacteria None seen /hpf (None Seen) Urine Glucose Normal mg/dL (Normal) Troponin I High Sensitivity 3 ng/L (</=34) Prothrombin Time 10.3 sec (9.3-11.8) Prothrombin Time INR 0.97 (0.9-1.15) Activated Partial Thromboplast Time 26.9 SEC (24.5-34.5) D-Dimer, Quantitative 0.70 mg/L FEU (0.0-0.49) Other Laboratory Tests 09/24/24 04:23 Brief Hx & Hospital Course: Milagros Carver is a 64-year-old female with past medical history of hypertension, hyperlipidemia, asthma, anxiety, depression, and COPD who came to the hospital with complaints of chest pain. Patient states she began having chest pain with associated shortness of breath and cough for 2 days. Her symptoms have continued to worsen prompting her to come to the hospital. Patient follows with Dr. Wu as an outpatient for cardiology. States she had a cardiac angiogram completed on 09/12/2024. D-Dimer is elevated. The patient decided they wanted to leave AMA. The patient was informed about the risk of leaving. And was informed about the risk that are involved if they left without any treatment which may include . The patient was okay with it and decided to leave without any intervention. The patient was told to return for any worsening symptoms.The patient decided they wanted to leave AMA. The patient was informed about the risk of leaving. And was informed about the risk that are involved if they left without any treatment which may include . The patient was okay with it and decided to leave without any intervention. The patient was told to return for any worsening symptoms. Condition at Discharge: Unstable Final Diagnosis/Problems List Shortness of breath Elevated D-dimer Chest pain Hypertension Hyperlipidemia COPD Discharge Disposition: AMA Discharge Statement: "Patient was advised to return to the ER or call 911 if any headaches, dizziness, shortness of breath, chest pain, abdominal pain, bleeding, fevers, or worsening of medical condition. Patient was counseled about treatment plan, medications, possible side effects, patientverbalized understanding. All questions were answered to the best of my ability. This discharge took greater then 30 minutes in planning, reviewing documentation, counseling the patient, and discussing with other team members." ASSESSMENT ASSESSMENT Assessment RAJ MILLIGAN NP Sep 24, 2024 08:47
[2024-09-24] MEDS: POTASSIUM EFFERVESENT TAB 25 MEQ PO ONE (09:53)
[2024-09-24] MEDS: CITALOPRAM HYDROBR 20 MG TAB PO SCH (09:53)
[2024-09-24 10:00] VITALS: O2SAT 96
[2024-09-24] MEDS: LISINOPRIL 5 MG TAB PO SCH (10:04)
[2024-09-24] MEDS ORDERED: Valbenazine Tosylate (Ingrezza) 80 MG PO SCH (18:00)
[2024-09-24] MEDS ORDERED: ATORVASTATIN 20 MG TAB PO SCH (22:00)
== END 2024-09-24 11:09 | disposition left against medical advice (07) | DRG 192 ==
LOC: EDBD 10:01 → ER 10:01 → OVERFLOW 13:47
PROVIDERS: ADMIT Student in an Organized Health Care Education/Training Program; ATTEND Nurse Practitioner
DX: J44.1 Chronic obstructive pulmonary disease with (acute) exacerbation (principal); E78.5 Hyperlipidemia, unspecified; Z53.29 Procedure and treatment not carried out because of patient's decision for other reasons; N18.9 Chronic kidney disease, unspecified; I12.9 Hypertensive chronic kidney disease with stage 1 through stage 4 chronic kidney disease, or unspecified chronic kidney disease; F32.A Depression, unspecified; F41.9 Anxiety disorder, unspecified; G62.9 Polyneuropathy, unspecified; E66.01 Morbid (severe) obesity due to excess calories; Z96.653 Presence of artificial knee joint, bilateral; Z88.2 Allergy status to sulfonamides; Z79.2 Long term (current) use of antibiotics; Z79.01 Long term (current) use of anticoagulants; Z79.899 Other long term (current) drug therapy; Z90.710 Acquired absence of both cervix and uterus; Z98.51 Tubal ligation status; Z86.718 Personal history of other venous thrombosis and embolism; Z87.440 Personal history of urinary (tract) infections; Z87.19 Personal history of other diseases of the digestive system; Z80.1 Family history of malignant neoplasm of trachea, bronchus and lung; Z68.32 Body mass index [BMI] 32.0-32.9, adult
CPT/HCPCS: 36415; 71045; 80048; 80053; 81001; 83735; 83880; 84484; 85025; 85379; 85610; 85730; 93005; 93970; 94640; 99291; G0378